=== PATIENT | female | born 1940 | race Caucasian/White ===

== ENCOUNTER 2018-03-29 09:00 | Outpatient (RCR) | payer MEDICARE, OTHER, SELFPAY ==
--- NOTE | 2018-02-14 13:40 | PT.OIE ---
Current Diagnoses Cervicalgia (02/13/18) Abnormal posture (02/13/18) Weakness (02/13/18) Past Surgical History (Last Reviewed 02/14/18 @ 13:12 by Rosario Ortiz PT) History of left hip replacement (Acute) History of bladder suspension procedure History of breast augmentation History of third molar tooth extraction History of tonsillectomy S/P total abdominal hysterectomy and bilateral salpingo-oophorectomy Status post appendectomy Status post laminectomy Provider Visit Care Team Role Provider Type Joel Laguna MD Attending Provider Physician Family Provider Primary Care Provider Specialty: Internal Medicine Address: [address] [place] [address], [facility] Email: Physical Therapy Initial Evaluation PT-OP-A Visit Information Start: 02/13/18 07:28 Freq: Status: Active Protocol: Document 02/13/18 13:00 [facility] (Rec: 02/14/18 13:22 [facility] [id number]) Out-Patient Physical Therapy Visit Information Visit Information Visit Type Initial Evaluation Visit Start Time 13:00 Visit Stop Time 13:50 Total Visit Minutes 50 Visit Number 1 Number of PUFF IRON OPERATOR Visits 0 PT-OP-B Current Condition Start: 02/13/18 07:28 Freq: Status: Active Protocol: Document 02/13/18 13:00 [facility] (Rec: 02/14/18 13:22 [facility] [id number]) Current Condition History of Current Condition Current Complaints Pain into L arm to elbow, into shoulder blad with spasms History of Current Condition Pt reports history of neck pain, scapular pain & elbow pain that has been on and off for years. 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 Pt has been able to relieve her pain before with mm relaxor 2x/day for an extended period & foam rolling the spot. She has had the pain since Oct when she was lifting a [employer] suitcase on their way home from a trip. She saw her MD 2 days ago and he encouraged her to work on her posture. The past 2 days have been better than the last few months. Pt notes the pain feels like a hammer on her funny bone. PT-OP-C Subjective Start: 02/13/18 07:28 Freq: Status: Active Protocol: Document 02/13/18 13:00 [facility] (Rec: 02/14/18 13:22 [facility] [id number]) Patient Questionnaires Quick Dash- Upper Extremity Quick Dash UE Score 22.72 Quick Dash UE Impairment 20 to 39% Impaired (Score 20- 39) OP-PT Pain Assessment Location Left Shoulder Pain Location Details L scapular area, neck & down arm to elbow Intensity 6 Scale Used Numeric (1 - 10) Description Spasm Frequency Intermittent Pain Aggravating Factors Dependent Position Other Pain Aggravating Factors any activity jazmín lifting L>R Pain Alleviating Factors Cold Medication Lying Supine Massage PT-OP-F Manual Assessment Start: 02/13/18 07:28 Freq: Status: Active Protocol: Document 02/13/18 13:00 [facility] (Rec: 02/14/18 13:28 [facility] [email or web address]) Manual Assessments Soft Tissue Assessment Soft Tissue Mobility Assessment Tigthness throughout cervical paraspinals, LS, rhomboids, UT PT-OP-J Posture/Palpation/Skin Start: 02/13/18 07:28 Freq: Status: Active Protocol: Document 02/13/18 13:00 [facility] (Rec: 02/14/18 13:28 [facility] [email or web address]) Posture Evaluation Comments Posture Comments Fwd head & shoulders PT-OP-K Range of Motion Start: 02/13/18 07:28 Freq: Status: Active Protocol: Document 02/13/18 13:00 [facility] (Rec: 02/14/18 13:28 [facility] [email or web address]) Cervical Spine Range of Motion Cervical Spine Active Degrees Testing Position Sitting Flexion 55 Extension 18 Rotation Left 28 Rotation Right 32 Lateral Flexion Left 5 Lateral Flexion Right 12 Comments pain ipsilat with SB, pain on R with L rotation & pain B with R rotation PT-OP-M Strength Start: 02/13/18 07:28 Freq: Status: Active Protocol: Document 02/13/18 13:00 [facility] (Rec: 02/14/18 13:28 [facility] [email or web address]) Shoulder Strength Shoulder Manual Muscle Testing Right Reason Not Measured Pain Left Reason Not Measured Pain PT-OP-Q Treatments Start: 02/13/18 07:28 Freq: Status: Active Protocol: Document 02/13/18 13:00 [facility] (Rec: 02/14/18 13:40 [facility] [email or web address]) Therapeutic Exercises Supine Exercises 2 Supine Exercise Name Foam roll: flex & Habd Side bilateral 1 Supine Exercise Name axial elongation Standing Exercises 2 Standing Exercise Name posture roll up w/o UE use 1 Standing Exercise Name Cervical AROM all directions Side bilateral Self-Care/Home Management Treatment Education Other Education Discussed massage as help for improving pain. PT-OP-T Assessment and Plan Start: 02/13/18 07:28 Freq: Status: Active Protocol: Document 02/13/18 13:00 [facility] (Rec: 02/14/18 13:40 [facility] [email or web address]) Physical Therapy Assessment Rehab Potential Rehabilitation Potential Excellent Evaluation Complexity Number of Personal Factors/Comorbidities 3 or More Number of Body Systems Impaired 4 or More Clinical Presentation at Evaluation Evolving Impairments Impairments Activity Tolerance Pain Posture ROM Soft Tissue Mobility Strength Goals Four Impairment UE strength Shade Hanger Goal (LTG) 5/5 strength to allow pt do normal household activities LTG Duration 04/15/18 Three Impairment pain Short Term Goal (STG) no greater than 4/10 STG Duration 03/15/18 Shelter Goal (LTG) no pain present with pt's typical activities. LTG Duration 04/15/18 Two Impairment ROM Shelter Goal (LTG) WNL to allow pt to drive & do daily tasks without pain. LTG Duration 04/15/18 One Impairment DASH Shelter Goal (LTG) Score of 4 to show ability to more functional tasks. LTG Duration by 04/15/18 Physical Therapy Plan Frequency and Duration Frequency of Treatment 2x/Week Duration of Treatment 2 months Plan of Care Start Date 02/13/18 Plan of Care End Date 04/15/18 Therapeutic Interventions Therapeutic Interventions Home Exercise Program Joint Mobilizations Manual Therapy Patient/Caregiver Education Soft Tissue Mobilization Taping Therapeutic Activities Therapeutic Exercises Modalities Cold Pack/Ice Massage Electric Stimulation Hot Packs Traction- Mechanical Ultrasound Next Visit Focus/Plan Next Note Type Treatment Note Next Visit Plan STM & ultrasound to LS/ rhomboid area, rib mobs Please Sign and Return: I have reviewed this Plan of Care and certify that the skilled therapy services above are required to meet the patient?s needs. Physician Signature Date Printed Name and Credentials Clinical Instructor Signature Printed Name and Credentials
--- NOTE | 2018-02-14 13:40 | PT.OPPOC ---
Current Diagnoses Cervicalgia (02/13/18) Abnormal posture (02/13/18) Weakness (02/13/18) Provider Visit Care Team Role Provider Type Joel Laguna MD Attending Provider Physician Family Provider Primary Care Provider Specialty: Internal Medicine Address: [address] [place] [address], [facility] Email: Plan Of Care PT-OP-T Assessment and Plan Start: 02/13/18 07:28 Freq: Status: Active Protocol: Document 02/13/18 13:00 [facility] (Rec: 02/14/18 13:40 [facility] [id number]) Physical Therapy Assessment Rehab Potential Rehabilitation Potential Excellent Evaluation Complexity Number of Personal Factors/Comorbidities 3 or More Number of Body Systems Impaired 4 or More Clinical Presentation at Evaluation Evolving Impairments Impairments Activity Tolerance Pain Posture ROM Soft Tissue Mobility Strength Goals Four Impairment UE strength Stage Electrician Helper Goal (LTG) 5/5 strength to allow pt do normal household activities LTG Duration 04/15/18 Three Impairment pain Short Term Goal (STG) no greater than 4/10 STG Duration 03/15/18 Stage Electrician Helper Goal (LTG) no pain present with pt's typical activities. LTG Duration 04/15/18 Two Impairment ROM Snf Goal (LTG) WNL to allow pt to drive & do daily tasks without pain. LTG Duration 04/15/18 One Impairment DASH Snf Goal (LTG) Score of 4 to show ability to more functional tasks. LTG Duration by 04/15/18 Physical Therapy Plan Frequency and Duration Frequency of Treatment 2x/Week Duration of Treatment 2 months Plan of Care Start Date 02/13/18 Plan of Care End Date 04/15/18 Therapeutic Interventions Therapeutic Interventions Home Exercise Program Joint Mobilizations Manual Therapy Patient/Caregiver Education Soft Tissue Mobilization Taping Therapeutic Activities Therapeutic Exercises Modalities Cold Pack/Ice Massage Electric Stimulation Hot Packs Traction- Mechanical Ultrasound Next Visit Focus/Plan Next Note Type Treatment Note Next Visit Plan STM & ultrasound to LS/ rhomboid area, rib mobs Plan of Care Dates Plan of Care Start Date 02/13/18 Plan of Care End Date 04/15/18 Please Sign and Return: I have reviewed this Plan of Care and certify that the skilled therapy services above are required to meet the patient?s needs. Physician Signature Date Printed Name and Credentials Clinical Instructor Signature Printed Name and Credentials
--- NOTE | 2018-02-19 17:24 | PT.OTN ---
Current Diagnoses Cervicalgia (02/19/18) Physical Therapy Treatment Note PT-OP-A Visit Information Start: 02/13/18 07:28 Freq: Status: Active Protocol: Document 02/19/18 13:00 [facility] (Rec: 02/19/18 17:24 [facility] [email or web address]) Out-Patient Physical Therapy Visit Information Visit Information Visit Type Treatment Note Visit Start Time 13:00 Visit Stop Time 13:45 Total Visit Minutes 45 Visit Number 2 Number of LOCKSTITCH SLEEVE SETTER Visits 0 PT-OP-B Current Condition Start: 02/13/18 07:28 Freq: Status: Active Protocol: Document 02/13/18 13:00 [facility] (Rec: 02/14/18 13:22 [facility] [id number]) Current Condition History of Current Condition Current Complaints Pain into L arm to elbow, into shoulder blad with spasms History of Current Condition Pt reports history of neck pain, scapular pain & elbow pain that has been on and off for years. 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 Pt has been able to relieve her pain before with mm relaxor 2x/day for an extended period & foam rolling the spot. She has had the pain since Oct when she was lifting a [employer] suitcase on their way home from a trip. She saw her MD 2 days ago and he encouraged her to work on her posture. The past 2 days have been better than the last few months. Pt notes the pain feels like a hammer on her funny bone. PT-OP-C Subjective Start: 02/13/18 07:28 Freq: Status: Active Protocol: Document 02/19/18 13:00 [facility] (Rec: 02/19/18 17:24 [facility] [email or web address]) OP-PT Subjective Patient Comments Patient Comments Reports she tried foam roll & tennis ball and was painful after so has not done it again . Reports cont to get pain shooting to elbow. PT-OP-F Manual Assessment Start: 02/13/18 07:28 Freq: Status: Active Protocol: Document 02/13/18 13:00 [facility] (Rec: 02/14/18 13:28 [facility] [email or web address]) Manual Assessments Soft Tissue Assessment Soft Tissue Mobility Assessment Tigthness throughout cervical paraspinals, LS, rhomboids, UT PT-OP-J Posture/Palpation/Skin Start: 02/13/18 07:28 Freq: Status: Active Protocol: Document 02/13/18 13:00 [facility] (Rec: 02/14/18 13:28 [facility] [id number]) Posture Evaluation Comments Posture Comments Fwd head & shoulders PT-OP-K Range of Motion Start: 02/13/18 07:28 Freq: Status: Active Protocol: Document 02/13/18 13:00 [facility] (Rec: 02/14/18 13:28 [facility] [email or web address]) Cervical Spine Range of Motion Cervical Spine Active Degrees Testing Position Sitting Flexion 55 Extension 18 Rotation Left 28 Rotation Right 32 Lateral Flexion Left 5 Lateral Flexion Right 12 Comments pain ipsilat with SB, pain on R with L rotation & pain B with R rotation PT-OP-M Strength Start: 02/13/18 07:28 Freq: Status: Active Protocol: Document 02/13/18 13:00 [facility] (Rec: 02/14/18 13:28 [facility] [email or web address]) Shoulder Strength Shoulder Manual Muscle Testing Right Reason Not Measured Pain Left Reason Not Measured Pain PT-OP-Q Treatments Start: 02/13/18 07:28 Freq: Status: Active Protocol: Document 02/19/18 13:00 [facility] (Rec: 02/19/18 17:24 [facility] [email or web address]) Therapeutic Exercises Standing Exercises 3 Standing Exercise Name corner pec stretch Manual Therapy Treatment Soft Tissue Mobilization 1 Body Location L UT, LS, scalenes, cervical paraspinals Mobilization Type Rolling Sustained Pressure Intensity/Depth Moderate Joint Mobilizations 2 Joint L ribs 2-5 Direction AP FM 1 Joint T1-3 Direction PA FM & transverse L FM PT-OP-T Assessment and Plan Start: 02/13/18 07:28 Freq: Status: Active Protocol: Document 02/19/18 13:00 [facility] (Rec: 02/19/18 17:24 [facility] [email or web address]) Physical Therapy Assessment Goals Four Impairment UE strength Correction Goal (LTG) 5/5 strength to allow pt do normal household activities LTG Duration 04/15/18 Three Impairment pain Short Term Goal (STG) no greater than 4/10 STG Duration 03/15/18 Egg Separator Goal (LTG) no pain present with pt's typical activities. LTG Duration 04/15/18 Two Impairment ROM Correction Goal (LTG) WNL to allow pt to drive & do daily tasks without pain. LTG Duration 04/15/18 One Impairment DASH Correction Goal (LTG) Score of 4 to show ability to more functional tasks. LTG Duration by 04/15/18 Assessment Summary Assessment Pt felt much looser after STM and joint mobilizations. Pt has significant restrictions in L>R thoracic & ribs. Improved joint play and ROM after manual. Physical Therapy Plan Frequency and Duration Frequency of Treatment 2x/Week Duration of Treatment 2 months Plan of Care Start Date 02/13/18 Plan of Care End Date 04/15/18 Next Visit Focus/Plan Next Note Type Treatment Note Next Visit Plan roll & reach, cat & camel, thread the needle, jovanna pose , sleep position
--- NOTE | 2018-02-22 15:55 | PT.OTN ---
Current Diagnoses Cervicalgia (02/22/18) Physical Therapy Treatment Note PT-OP-A Visit Information Start: 02/13/18 07:28 Freq: Status: Active Protocol: Document 02/22/18 15:20 [facility] (Rec: 02/22/18 15:55 [facility] [id number]) Out-Patient Physical Therapy Visit Information Visit Information Visit Type Treatment Note Visit Start Time 14:30 Visit Stop Time 15:20 Total Visit Minutes 48 Visit Number 3 Number of BOOKBINDING MACHINE OPERATOR Visits 0 PT-OP-B Current Condition Start: 02/13/18 07:28 Freq: Status: Active Protocol: Document 02/13/18 13:00 [facility] (Rec: 02/14/18 13:22 [facility] [email or web address]) Current Condition History of Current Condition Current Complaints Pain into L arm to elbow, into shoulder blad with spasms History of Current Condition Pt reports history of neck pain, scapular pain & elbow pain that has been on and off for years. 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 Pt has been able to relieve her pain before with mm relaxor 2x/day for an extended period & foam rolling the spot. She has had the pain since Oct when she was lifting a [employer] suitcase on their way home from a trip. She saw her MD 2 days ago and he encouraged her to work on her posture. The past 2 days have been better than the last few months. Pt notes the pain feels like a hammer on her funny bone. PT-OP-C Subjective Start: 02/13/18 07:28 Freq: Status: Active Protocol: Document 02/22/18 15:20 [facility] (Rec: 02/22/18 15:55 [facility] [id number]) OP-PT Subjective Patient Comments Patient Comments Pt reports today she is doing okay, but was very sore yesterday. She started to take her muscle relaxors again. PT-OP-F Manual Assessment Start: 02/13/18 07:28 Freq: Status: Active Protocol: Document 02/13/18 13:00 [facility] (Rec: 02/14/18 13:28 [facility] [id number]) Manual Assessments Soft Tissue Assessment Soft Tissue Mobility Assessment Tigthness throughout cervical paraspinals, LS, rhomboids, UT PT-OP-J Posture/Palpation/Skin Start: 02/13/18 07:28 Freq: Status: Active Protocol: Document 02/13/18 13:00 [facility] (Rec: 02/14/18 13:28 [facility] [email or web address]) Posture Evaluation Comments Posture Comments Fwd head & shoulders PT-OP-K Range of Motion Start: 02/13/18 07:28 Freq: Status: Active Protocol: Document 02/13/18 13:00 [facility] (Rec: 02/14/18 13:28 [facility] [id number]) Cervical Spine Range of Motion Cervical Spine Active Degrees Testing Position Sitting Flexion 55 Extension 18 Rotation Left 28 Rotation Right 32 Lateral Flexion Left 5 Lateral Flexion Right 12 Comments pain ipsilat with SB, pain on R with L rotation & pain B with R rotation PT-OP-M Strength Start: 02/13/18 07:28 Freq: Status: Active Protocol: Document 02/13/18 13:00 [facility] (Rec: 02/14/18 13:28 [facility] [id number]) Shoulder Strength Shoulder Manual Muscle Testing Right Reason Not Measured Pain Left Reason Not Measured Pain PT-OP-Q Treatments Start: 02/13/18 07:28 Freq: Status: Active Protocol: Document 02/22/18 15:20 [facility] (Rec: 02/22/18 15:55 [facility] [email or web address]) Therapeutic Exercises Other Exercises 4 Other Exercise Name roll & reach Reps/Minutes 12 3 Other Exercise Name thread the needle Reps/Minutes 2x 30 sec 2 Other Exercise Name cat/camel Reps/Minutes 15 1 Other Exercise Name Child's pose & to side Therapeutic Activity Therapeutic Activity 1 Name sleep position Comments s/l Manual Therapy Treatment Soft Tissue Mobilization 2 Body Location rhomboids Mobilization Type Rolling Intensity/Depth Moderate 1 Body Location L UT, LS, scalenes, cervical paraspinals Mobilization Type Rolling Sustained Pressure Intensity/Depth Moderate Joint Mobilizations 3 Joint C6 Direction L UPA Grade II 2 Joint L ribs 2-5 Direction AP FM PT-OP-T Assessment and Plan Start: 02/13/18 07:28 Freq: Status: Active Protocol: Document 02/22/18 15:20 [facility] (Rec: 02/22/18 15:55 [facility] [email or web address]) Physical Therapy Assessment Goals Four Impairment UE strength Longterm Goal (LTG) 5/5 strength to allow pt do normal household activities LTG Duration 04/15/18 Three Impairment pain Short Term Goal (STG) no greater than 4/10 STG Duration 03/15/18 Longterm Goal (LTG) no pain present with pt's typical activities. LTG Duration 04/15/18 Two Impairment ROM Marketing Automation Manager Goal (LTG) WNL to allow pt to drive & do daily tasks without pain. LTG Duration 04/15/18 One Impairment DASH Marketing Automation Manager Goal (LTG) Score of 4 to show ability to more functional tasks. LTG Duration by 04/15/18 Assessment Summary Assessment Pt hd improved soft tissue mobility of UT & LS. Able to tolerate all thoracic mobility stretches without c/o inc pain. Physical Therapy Plan Frequency and Duration Frequency of Treatment 2x/Week Duration of Treatment 2 months Plan of Care Start Date 02/13/18 Plan of Care End Date 04/15/18 Next Visit Focus/Plan Next Note Type Treatment Note Next Visit Plan Cont to progress cervical ROM & mobility
--- NOTE | 2018-03-05 17:48 | PT.OTN ---
Current Diagnoses Cervicalgia (03/05/18) Physical Therapy Treatment Note PT-OP-A Visit Information Start: 02/13/18 07:28 Freq: Status: Active Protocol: Document 03/05/18 17:34 [facility] (Rec: 03/05/18 17:48 [facility] [id number]) Out-Patient Physical Therapy Visit Information Visit Information Visit Type Treatment Note Visit Start Time 09:00 Visit Stop Time 09:40 Total Visit Minutes 40 Visit Number 4 Number of SENIOR PHARMACY TECHNICIAN Visits 0 PT-OP-B Current Condition Start: 02/13/18 07:28 Freq: Status: Active Protocol: Document 02/13/18 13:00 [facility] (Rec: 02/14/18 13:22 [facility] [id number]) Current Condition History of Current Condition Current Complaints Pain into L arm to elbow, into shoulder blad with spasms History of Current Condition Pt reports history of neck pain, scapular pain & elbow pain that has been on and off for years. 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 Pt has been able to relieve her pain before with mm relaxor 2x/day for an extended period & foam rolling the spot. She has had the pain since Oct when she was lifting a [employer] suitcase on their way home from a trip. She saw her MD 2 days ago and he encouraged her to work on her posture. The past 2 days have been better than the last few months. Pt notes the pain feels like a hammer on her funny bone. PT-OP-C Subjective Start: 02/13/18 07:28 Freq: Status: Active Protocol: Document 03/05/18 17:34 [facility] (Rec: 03/05/18 17:48 [facility] [id number]) OP-PT Subjective Patient Comments Patient Comments Pt report she has only had to take tylenol. Notes she has had less sharp shooting pain. PT-OP-F Manual Assessment Start: 02/13/18 07:28 Freq: Status: Active Protocol: Document 02/13/18 13:00 [facility] (Rec: 02/14/18 13:28 [facility] [id number]) Manual Assessments Soft Tissue Assessment Soft Tissue Mobility Assessment Tigthness throughout cervical paraspinals, LS, rhomboids, UT PT-OP-J Posture/Palpation/Skin Start: 02/13/18 07:28 Freq: Status: Active Protocol: Document 02/13/18 13:00 [facility] (Rec: 02/14/18 13:28 [facility] [id number]) Posture Evaluation Comments Posture Comments Fwd head & shoulders PT-OP-K Range of Motion Start: 02/13/18 07:28 Freq: Status: Active Protocol: Document 02/13/18 13:00 [facility] (Rec: 02/14/18 13:28 [facility] [id number]) Cervical Spine Range of Motion Cervical Spine Active Degrees Testing Position Sitting Flexion 55 Extension 18 Rotation Left 28 Rotation Right 32 Lateral Flexion Left 5 Lateral Flexion Right 12 Comments pain ipsilat with SB, pain on R with L rotation & pain B with R rotation PT-OP-M Strength Start: 02/13/18 07:28 Freq: Status: Active Protocol: Document 02/13/18 13:00 [facility] (Rec: 02/14/18 13:28 [facility] [id number]) Shoulder Strength Shoulder Manual Muscle Testing Right Reason Not Measured Pain Left Reason Not Measured Pain PT-OP-Q Treatments Start: 02/13/18 07:28 Freq: Status: Active Protocol: Document 03/05/18 17:34 [facility] (Rec: 03/05/18 17:48 [facility] [id number]) Manual Therapy Treatment Soft Tissue Mobilization 3 Body Location down paraspinals w/flex 2 Body Location rhomboids Mobilization Type Rolling Intensity/Depth Moderate 1 Body Location L UT, LS, scalenes, cervical paraspinals Mobilization Type Rolling Sustained Pressure Intensity/Depth Moderate Comments FM with movement Joint Mobilizations 4 Joint 1st rib Direction s/l Comments FM PT-OP-T Assessment and Plan Start: 02/13/18 07:28 Freq: Status: Active Protocol: Document 03/05/18 17:34 [facility] (Rec: 03/05/18 17:48 [facility] [id number]) Physical Therapy Assessment Goals Four Impairment UE strength Custodial Goal (LTG) 5/5 strength to allow pt do normal household activities LTG Duration 04/15/18 Three Impairment pain Short Term Goal (STG) no greater than 4/10 STG Duration 03/15/18 Custodial Goal (LTG) no pain present with pt's typical activities. LTG Duration 04/15/18 Two Impairment ROM Forge Heater Goal (LTG) WNL to allow pt to drive & do daily tasks without pain. LTG Duration 04/15/18 One Impairment DASH Forge Heater Goal (LTG) Score of 4 to show ability to more functional tasks. LTG Duration by 04/15/18 Assessment Summary Assessment Pt reported significantly dec pain with treatment. Improved thoracic rot & dec pain. Physical Therapy Plan Frequency and Duration Frequency of Treatment 2x/Week Duration of Treatment 2 months Plan of Care Start Date 02/13/18 Plan of Care End Date 04/15/18 Next Visit Focus/Plan Next Note Type Treatment Note Next Visit Plan Cont to progress cervical ROM & mobility
--- NOTE | 2018-03-08 10:35 | PT.OTN ---
Current Diagnoses Cervicalgia (03/08/18) Physical Therapy Treatment Note PT-OP-A Visit Information Start: 02/13/18 07:28 Freq: Status: Active Protocol: Document 03/08/18 09:42 [facility] (Rec: 03/08/18 10:34 [facility] [id number]) Out-Patient Physical Therapy Visit Information Visit Information Visit Type Treatment Note Visit Note 5 visits this yr Visit Start Time 09:45 Visit Stop Time 10:30 Total Visit Minutes 45 Visit Number 5/10 Number of GROUP LEADER SEMICONDUCTOR PROCESSING Visits 0 PT-OP-B Current Condition Start: 02/13/18 07:28 Freq: Status: Active Protocol: Document 02/13/18 13:00 [facility] (Rec: 02/14/18 13:22 [facility] [id number]) Current Condition History of Current Condition Current Complaints Pain into L arm to elbow, into shoulder blad with spasms History of Current Condition Pt reports history of neck pain, scapular pain & elbow pain that has been on and off for years. 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 Pt has been able to relieve her pain before with mm relaxor 2x/day for an extended period & foam rolling the spot. She has had the pain since Oct when she was lifting a [employer] suitcase on their way home from a trip. She saw her MD 2 days ago and he encouraged her to work on her posture. The past 2 days have been better than the last few months. Pt notes the pain feels like a hammer on her funny bone. PT-OP-C Subjective Start: 02/13/18 07:28 Freq: Status: Active Protocol: Document 03/08/18 09:42 [facility] (Rec: 03/08/18 10:34 [facility] [id number]) OP-PT Subjective Patient Comments Patient Comments It was a bad day yesterday. Today is better, unsure why PT-OP-F Manual Assessment Start: 02/13/18 07:28 Freq: Status: Active Protocol: Document 02/13/18 13:00 [facility] (Rec: 02/14/18 13:28 [facility] [email or web address]) Manual Assessments Soft Tissue Assessment Soft Tissue Mobility Assessment Tigthness throughout cervical paraspinals, LS, rhomboids, UT PT-OP-J Posture/Palpation/Skin Start: 02/13/18 07:28 Freq: Status: Active Protocol: Document 02/13/18 13:00 [facility] (Rec: 02/14/18 13:28 [facility] [email or web address]) Posture Evaluation Comments Posture Comments Fwd head & shoulders PT-OP-K Range of Motion Start: 02/13/18 07:28 Freq: Status: Active Protocol: Document 02/13/18 13:00 [facility] (Rec: 02/14/18 13:28 [facility] [id number]) Cervical Spine Range of Motion Cervical Spine Active Degrees Testing Position Sitting Flexion 55 Extension 18 Rotation Left 28 Rotation Right 32 Lateral Flexion Left 5 Lateral Flexion Right 12 Comments pain ipsilat with SB, pain on R with L rotation & pain B with R rotation PT-OP-M Strength Start: 02/13/18 07:28 Freq: Status: Active Protocol: Document 02/13/18 13:00 [facility] (Rec: 02/14/18 13:28 [facility] [id number]) Shoulder Strength Shoulder Manual Muscle Testing Right Reason Not Measured Pain Left Reason Not Measured Pain PT-OP-Q Treatments Start: 02/13/18 07:28 Freq: Status: Active Protocol: Document 03/08/18 09:42 [facility] (Rec: 03/08/18 10:34 [facility] [id number]) Therapeutic Exercises Sidelying Exercises 1 Sidelying Exercise Name self 1st rib mob Sitting Exercises 1 Sitting Exercise Name LS stretch Manual Therapy Treatment Soft Tissue Mobilization 3 Body Location down paraspinals w/flex 2 Body Location rhomboids Mobilization Type Rolling Intensity/Depth Moderate Comments FM with rotation 1 Body Location L UT, LS, scalenes, cervical paraspinals Mobilization Type Rolling Sustained Pressure Intensity/Depth Moderate Comments FM with movement Joint Mobilizations 4 Joint 1st rib Direction s/l Comments FM 1 Joint T1-3 Direction PA FM & transverse L FM PT-OP-R Modalities Start: 02/13/18 07:28 Freq: Status: Active Protocol: Document 03/08/18 09:42 [facility] (Rec: 03/08/18 10:34 [facility] [id number]) Ultrasound Therapy Treatment Left Shoulder Treatment Duration (minutes) 8 Patient Position Sitting Coupling Medium Ultrasound Gel Frequency Setting (mHz) 1 Duty Cycle 100% Intensity Setting (w/cm2) 1.2 Comments scap region PT-OP-T Assessment and Plan Start: 02/13/18 07:28 Freq: Status: Active Protocol: Document 03/08/18 09:42 [facility] (Rec: 03/08/18 10:34 [facility] [id number]) Physical Therapy Assessment Goals Four Impairment UE strength Assisted Goal (LTG) 5/5 strength to allow pt do normal household activities LTG Duration 04/15/18 Three Impairment pain Short Term Goal (STG) no greater than 4/10 STG Duration 03/15/18 Assisted Goal (LTG) no pain present with pt's typical activities. LTG Duration 04/15/18 Two Impairment ROM Assisted Goal (LTG) WNL to allow pt to drive & do daily tasks without pain. LTG Duration 04/15/18 One Impairment DASH Assisted Goal (LTG) Score of 4 to show ability to more functional tasks. LTG Duration by 04/15/18 Assessment Summary Assessment Pt had improved rotation after mobilizations & soft tissue work. Physical Therapy Plan Frequency and Duration Frequency of Treatment 2x/Week Duration of Treatment 2 months Plan of Care Start Date 02/13/18 Plan of Care End Date 04/15/18 Next Visit Focus/Plan Next Note Type Treatment Note Next Visit Plan Cont to progress cervical ROM & mobility & scapular stabilization
--- NOTE | 2018-03-12 16:51 | PT.OTN ---
Current Diagnoses Cervicalgia (03/12/18) Physical Therapy Treatment Note PT-OP-A Visit Information Start: 02/13/18 07:28 Freq: Status: Active Protocol: Document 03/12/18 16:46 [facility] (Rec: 03/12/18 16:51 [facility] [id number]) Out-Patient Physical Therapy Visit Information Visit Information Visit Type Treatment Note Visit Note 6 visits this yr Visit Start Time 11:15 Visit Stop Time 12:00 Total Visit Minutes 45 Visit Number 6/10 Number of KENNEL WORKER Visits 0 PT-OP-B Current Condition Start: 02/13/18 07:28 Freq: Status: Active Protocol: Document 02/13/18 13:00 [facility] (Rec: 02/14/18 13:22 [facility] [id number]) Current Condition History of Current Condition Current Complaints Pain into L arm to elbow, into shoulder blad with spasms History of Current Condition Pt reports history of neck pain, scapular pain & elbow pain that has been on and off for years. 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 Pt has been able to relieve her pain before with mm relaxor 2x/day for an extended period & foam rolling the spot. She has had the pain since Oct when she was lifting a [employer] suitcase on their way home from a trip. She saw her MD 2 days ago and he encouraged her to work on her posture. The past 2 days have been better than the last few months. Pt notes the pain feels like a hammer on her funny bone. PT-OP-C Subjective Start: 02/13/18 07:28 Freq: Status: Active Protocol: Document 03/12/18 16:46 [facility] (Rec: 03/12/18 16:51 [facility] [id number]) OP-PT Subjective Patient Comments Patient Comments Pt reports she has been sleeping in a small bed with her and 4 dogs d/t babysitting her dgt's dogs and had inc pain the past 2 days. 4 more days of babysitting dogs. PT-OP-F Manual Assessment Start: 02/13/18 07:28 Freq: Status: Active Protocol: Document 02/13/18 13:00 [facility] (Rec: 02/14/18 13:28 [facility] [id number]) Manual Assessments Soft Tissue Assessment Soft Tissue Mobility Assessment Tigthness throughout cervical paraspinals, LS, rhomboids, UT PT-OP-J Posture/Palpation/Skin Start: 02/13/18 07:28 Freq: Status: Active Protocol: Document 02/13/18 13:00 [facility] (Rec: 02/14/18 13:28 [facility] [id number]) Posture Evaluation Comments Posture Comments Fwd head & shoulders PT-OP-K Range of Motion Start: 02/13/18 07:28 Freq: Status: Active Protocol: Document 02/13/18 13:00 [facility] (Rec: 02/14/18 13:28 [facility] [id number]) Cervical Spine Range of Motion Cervical Spine Active Degrees Testing Position Sitting Flexion 55 Extension 18 Rotation Left 28 Rotation Right 32 Lateral Flexion Left 5 Lateral Flexion Right 12 Comments pain ipsilat with SB, pain on R with L rotation & pain B with R rotation PT-OP-M Strength Start: 02/13/18 07:28 Freq: Status: Active Protocol: Document 02/13/18 13:00 [facility] (Rec: 02/14/18 13:28 [facility] [id number]) Shoulder Strength Shoulder Manual Muscle Testing Right Reason Not Measured Pain Left Reason Not Measured Pain PT-OP-Q Treatments Start: 02/13/18 07:28 Freq: Status: Active Protocol: Document 03/12/18 16:46 [facility] (Rec: 03/12/18 16:51 [facility] [id number]) Therapeutic Exercises Supine Exercises 1 Supine Exercise Name axial elongation Comments with hand support Standing Exercises 5 Standing Exercise Name rows Equipment Used Lvl 1 Reps/Minutes 20 Comments focus on scapular retraction 4 Standing Exercise Name ER Equipment Used lvl 1 Reps/Minutes 20 Comments focus on scap retract Other Exercises 5 Other Exercise Name cane self release Manual Therapy Treatment Soft Tissue Mobilization 2 Body Location rhomboids Mobilization Type Rolling Intensity/Depth Moderate Comments FM with rotation 1 Body Location L UT, LS, scalenes, cervical paraspinals Mobilization Type Myofascial Release Rolling Sustained Pressure Intensity/Depth Moderate Comments FM with movement Joint Mobilizations 2 Joint L ribs 2-5 Direction AP FM PT-OP-R Modalities Start: 02/13/18 07:28 Freq: Status: Active Protocol: Document 03/08/18 09:42 [facility] (Rec: 03/08/18 10:34 [facility] [id number]) Ultrasound Therapy Treatment Left Shoulder Treatment Duration (minutes) 8 Patient Position Sitting Coupling Medium Ultrasound Gel Frequency Setting (mHz) 1 Duty Cycle 100% Intensity Setting (w/cm2) 1.2 Comments scap region PT-OP-T Assessment and Plan Start: 02/13/18 07:28 Freq: Status: Active Protocol: Document 03/12/18 16:46 [facility] (Rec: 03/12/18 16:51 [facility] [id number]) Physical Therapy Assessment Goals Four Impairment UE strength Pet Food Deboner Goal (LTG) 5/5 strength to allow pt do normal household activities LTG Duration 04/15/18 Three Impairment pain Short Term Goal (STG) no greater than 4/10 STG Duration 03/15/18 Pet Food Deboner Goal (LTG) no pain present with pt's typical activities. LTG Duration 04/15/18 Two Impairment ROM Custodial Goal (LTG) WNL to allow pt to drive & do daily tasks without pain. LTG Duration 04/15/18 One Impairment DASH Pet Food Deboner Goal (LTG) Score of 4 to show ability to more functional tasks. LTG Duration by 04/15/18 Assessment Summary Assessment Pt had some pain after exercises, but has been having intermittent pain today. Pt had dec in symptoms after session. Reports feeling looser. Physical Therapy Plan Frequency and Duration Frequency of Treatment 2x/Week Duration of Treatment 2 months Plan of Care Start Date 02/13/18 Plan of Care End Date 04/15/18 Next Visit Focus/Plan Next Note Type Treatment Note Next Visit Plan Cont to progress cervical ROM & stability & scapular stabilization
--- NOTE | 2018-03-20 16:59 | PT.OTN ---
Current Diagnoses Cervicalgia (03/20/18) Physical Therapy Treatment Note PT-OP-A Visit Information Start: 02/13/18 07:28 Freq: Status: Active Protocol: Document 03/20/18 16:54 [facility] (Rec: 03/20/18 16:59 [facility] [id number]) Out-Patient Physical Therapy Visit Information Visit Information Visit Type Treatment Note Visit Note 7 visits this yr Visit Start Time 09:00 Visit Stop Time 09:45 Total Visit Minutes 45 Visit Number 7/10 Number of ANALYSIS INTERNSHIP Visits 0 PT-OP-B Current Condition Start: 02/13/18 07:28 Freq: Status: Active Protocol: Document 02/13/18 13:00 [facility] (Rec: 02/14/18 13:22 [facility] [id number]) Current Condition History of Current Condition Current Complaints Pain into L arm to elbow, into shoulder blad with spasms History of Current Condition Pt reports history of neck pain, scapular pain & elbow pain that has been on and off for years. 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 Pt has been able to relieve her pain before with mm relaxor 2x/day for an extended period & foam rolling the spot. She has had the pain since Oct when she was lifting a [employer] suitcase on their way home from a trip. She saw her MD 2 days ago and he encouraged her to work on her posture. The past 2 days have been better than the last few months. Pt notes the pain feels like a hammer on her funny bone. PT-OP-C Subjective Start: 02/13/18 07:28 Freq: Status: Active Protocol: Document 03/20/18 16:54 [facility] (Rec: 03/20/18 16:59 [facility] [id number]) OP-PT Subjective Patient Comments Patient Comments Reports she has not had pain since the 12th PT-OP-F Manual Assessment Start: 02/13/18 07:28 Freq: Status: Active Protocol: Document 02/13/18 13:00 [facility] (Rec: 02/14/18 13:28 [facility] [id number]) Manual Assessments Soft Tissue Assessment Soft Tissue Mobility Assessment Tigthness throughout cervical paraspinals, LS, rhomboids, UT PT-OP-J Posture/Palpation/Skin Start: 02/13/18 07:28 Freq: Status: Active Protocol: Document 02/13/18 13:00 [facility] (Rec: 02/14/18 13:28 [facility] [id number]) Posture Evaluation Comments Posture Comments Fwd head & shoulders PT-OP-K Range of Motion Start: 02/13/18 07:28 Freq: Status: Active Protocol: Document 02/13/18 13:00 [facility] (Rec: 02/14/18 13:28 [facility] [id number]) Cervical Spine Range of Motion Cervical Spine Active Degrees Testing Position Sitting Flexion 55 Extension 18 Rotation Left 28 Rotation Right 32 Lateral Flexion Left 5 Lateral Flexion Right 12 Comments pain ipsilat with SB, pain on R with L rotation & pain B with R rotation PT-OP-M Strength Start: 02/13/18 07:28 Freq: Status: Active Protocol: Document 02/13/18 13:00 [facility] (Rec: 02/14/18 13:28 [facility] [id number]) Shoulder Strength Shoulder Manual Muscle Testing Right Reason Not Measured Pain Left Reason Not Measured Pain PT-OP-Q Treatments Start: 02/13/18 07:28 Freq: Status: Active Protocol: Document 03/20/18 16:54 [facility] (Rec: 03/20/18 16:59 [facility] [id number]) Therapeutic Exercises Supine Exercises 1 Supine Exercise Name axial elongation Sidelying Exercises 1 Sidelying Exercise Name self 1st rib mob Standing Exercises 6 Standing Exercise Name wall posture with 90/90 ER 5 Standing Exercise Name rows Equipment Used Lvl 2 Reps/Minutes 20 Comments focus on scapular retraction 4 Standing Exercise Name ER Equipment Used lvl 2 Reps/Minutes 20 Comments focus on scap retract Manual Therapy Treatment Soft Tissue Mobilization 1 Body Location L UT, LS, scalenes, cervical paraspinals Mobilization Type Myofascial Release Rolling Sustained Pressure Intensity/Depth Moderate Comments FM with movement (B) Joint Mobilizations 4 Joint 1st rib Direction s/l Comments FM PT-OP-R Modalities Start: 02/13/18 07:28 Freq: Status: Active Protocol: Document 03/08/18 09:42 [facility] (Rec: 03/08/18 10:34 [facility] [id number]) Ultrasound Therapy Treatment Left Shoulder Treatment Duration (minutes) 8 Patient Position Sitting Coupling Medium Ultrasound Gel Frequency Setting (mHz) 1 Duty Cycle 100% Intensity Setting (w/cm2) 1.2 Comments scap region PT-OP-T Assessment and Plan Start: 02/13/18 07:28 Freq: Status: Active Protocol: Document 03/20/18 16:54 [facility] (Rec: 03/20/18 16:59 [facility] [id number]) Physical Therapy Assessment Goals Four Impairment UE strength Residential Goal (LTG) 5/5 strength to allow pt do normal household activities LTG Duration 04/15/18 Three Impairment pain Short Term Goal (STG) no greater than 4/10 STG Duration achieved [employer] Technician Goal (LTG) no pain present with pt's typical activities. LTG Duration 04/15/18 Two Impairment ROM [employer] Technician Goal (LTG) WNL to allow pt to drive & do daily tasks without pain. LTG Duration 04/15/18 One Impairment DASH Residential Goal (LTG) Score of 4 to show ability to more functional tasks. LTG Duration by 04/15/18 Assessment Summary Assessment Pt is improving with strength & tolerance to exercise today. Improved soft tissue tension in LS & UT Physical Therapy Plan Frequency and Duration Frequency of Treatment 2x/Week Duration of Treatment 2 months Plan of Care Start Date 02/13/18 Plan of Care End Date 04/15/18 Next Visit Focus/Plan Next Note Type Treatment Note Next Visit Plan Cont to progress cervical ROM & stability & scapular stabilization
--- NOTE | 2018-03-29 09:51 | PT.OTN ---
Current Diagnoses Cervicalgia (03/29/18) Physical Therapy Treatment Note PT-OP-A Visit Information Start: 02/13/18 07:28 Freq: Status: Active Protocol: Document 03/29/18 09:05 [facility] (Rec: 03/29/18 09:51 [facility] [id number]) Out-Patient Physical Therapy Visit Information Visit Information Visit Type Treatment Note Visit Note 8 visits this yr Visit Start Time 09:00 Visit Stop Time 09:45 Total Visit Minutes 45 Visit Number 8/10 Number of MOTOR VEHICLE LIGHT ASSEMBLER Visits 0 PT-OP-B Current Condition Start: 02/13/18 07:28 Freq: Status: Active Protocol: Document 02/13/18 13:00 [facility] (Rec: 02/14/18 13:22 [facility] [id number]) Current Condition History of Current Condition Current Complaints Pain into L arm to elbow, into shoulder blad with spasms History of Current Condition Pt reports history of neck pain, scapular pain & elbow pain that has been on and off for years. 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 Pt has been able to relieve her pain before with mm relaxor 2x/day for an extended period & foam rolling the spot. She has had the pain since Oct when she was lifting a [employer] suitcase on their way home from a trip. She saw her MD 2 days ago and he encouraged her to work on her posture. The past 2 days have been better than the last few months. Pt notes the pain feels like a hammer on her funny bone. PT-OP-C Subjective Start: 02/13/18 07:28 Freq: Status: Active Protocol: Document 03/29/18 09:05 [facility] (Rec: 03/29/18 09:51 [facility] [id number]) OP-PT Subjective Patient Comments Patient Comments Reports more pain along R side neck today PT-OP-F Manual Assessment Start: 02/13/18 07:28 Freq: Status: Active Protocol: Document 02/13/18 13:00 [facility] (Rec: 02/14/18 13:28 [facility] [id number]) Manual Assessments Soft Tissue Assessment Soft Tissue Mobility Assessment Tigthness throughout cervical paraspinals, LS, rhomboids, UT PT-OP-J Posture/Palpation/Skin Start: 02/13/18 07:28 Freq: Status: Active Protocol: Document 02/13/18 13:00 [facility] (Rec: 02/14/18 13:28 [facility] [id number]) Posture Evaluation Comments Posture Comments Fwd head & shoulders PT-OP-K Range of Motion Start: 02/13/18 07:28 Freq: Status: Active Protocol: Document 02/13/18 13:00 [facility] (Rec: 02/14/18 13:28 [facility] [id number]) Cervical Spine Range of Motion Cervical Spine Active Degrees Testing Position Sitting Flexion 55 Extension 18 Rotation Left 28 Rotation Right 32 Lateral Flexion Left 5 Lateral Flexion Right 12 Comments pain ipsilat with SB, pain on R with L rotation & pain B with R rotation PT-OP-M Strength Start: 02/13/18 07:28 Freq: Status: Active Protocol: Document 02/13/18 13:00 [facility] (Rec: 02/14/18 13:28 [facility] [id number]) Shoulder Strength Shoulder Manual Muscle Testing Right Reason Not Measured Pain Left Reason Not Measured Pain PT-OP-Q Treatments Start: 02/13/18 07:28 Freq: Status: Active Protocol: Document 03/29/18 09:05 [facility] (Rec: 03/29/18 09:51 [facility] [id number]) Manual Therapy Treatment Soft Tissue Mobilization 1 Body Location L UT, LS, scalenes, cervical paraspinals Mobilization Type Myofascial Release Rolling Sustained Pressure Intensity/Depth Moderate Comments FM with movement (B) Joint Mobilizations 4 Joint 1st rib Direction s/l Comments FM PT-OP-R Modalities Start: 02/13/18 07:28 Freq: Status: Active Protocol: Document 03/08/18 09:42 [facility] (Rec: 03/08/18 10:34 [facility] [id number]) Ultrasound Therapy Treatment Left Shoulder Treatment Duration (minutes) 8 Patient Position Sitting Coupling Medium Ultrasound Gel Frequency Setting (mHz) 1 Duty Cycle 100% Intensity Setting (w/cm2) 1.2 Comments scap region PT-OP-T Assessment and Plan Start: 02/13/18 07:28 Freq: Status: Active Protocol: Document 03/29/18 09:05 [facility] (Rec: 03/29/18 09:51 [facility] [id number]) Physical Therapy Assessment Goals Four Impairment UE strength Copy Center Specialist Goal (LTG) 5/5 strength to allow pt do normal household activities LTG Duration achieved Three Impairment pain Short Term Goal (STG) no greater than 4/10 STG Duration achieved Longterm Goal (LTG) no pain present with pt's typical activities. LTG Duration 05/30/18-improved pain on R neck Two Impairment ROM Longterm Goal (LTG) WNL to allow pt to drive & do daily tasks without pain. LTG Duration 05/30/18-improving One Impairment DASH Copy Center Specialist Goal (LTG) Score of 4 to show ability to more functional tasks. LTG Duration 05/30/18 -improving Progress Towards Goals Progress Comments 5/5 UE strength today; flex 60 ; 15 deg ext, SB B 15 deg, rot R 40 deg, L 50 Assessment Summary Assessment Cont tight soft tissues that improved with soft tissue work . Physical Therapy Plan Frequency and Duration Frequency of Treatment 1x/Week Duration of Treatment 2 months Plan of Care Start Date 03/29/18 Plan of Care End Date 05/30/18 Therapeutic Interventions Therapeutic Interventions Home Exercise Program Joint Mobilizations Manual Therapy Patient/Caregiver Education Soft Tissue Mobilization Taping Therapeutic Activities Therapeutic Exercises Modalities Cold Pack/Ice Massage Electric Stimulation Hot Packs Traction- Mechanical Ultrasound Next Visit Focus/Plan Next Note Type Treatment Note Next Visit Plan Cont to progress cervical ROM & stability & scapular stabilization
--- NOTE | 2018-03-29 09:52 | PT.OPPOC ---
Current Diagnoses Cervicalgia (03/29/18) Provider Visit Care Team Role Provider Type Joel Laguna MD Attending Provider Physician Family Provider Primary Care Provider Specialty: Internal Medicine Address: [address] [place] [address], [id number] Email: Plan Of Care PT-OP-T Assessment and Plan Start: 02/13/18 07:28 Freq: Status: Active Protocol: Document 03/29/18 09:05 [facility] (Rec: 03/29/18 09:51 [facility] [id number]) Physical Therapy Assessment Goals Four Impairment UE strength Manager Clinic Goal (LTG) 5/5 strength to allow pt do normal household activities LTG Duration achieved Three Impairment pain Short Term Goal (STG) no greater than 4/10 STG Duration achieved Manager Clinic Goal (LTG) no pain present with pt's typical activities. LTG Duration 05/30/18-improved pain on R neck Two Impairment ROM Fpc Goal (LTG) WNL to allow pt to drive & do daily tasks without pain. LTG Duration 05/30/18-improving One Impairment DASH Manager Clinic Goal (LTG) Score of 4 to show ability to more functional tasks. LTG Duration 05/30/18 -improving Progress Towards Goals Progress Comments 5/5 UE strength today; flex 60 ; 15 deg ext, SB B 15 deg, rot R 40 deg, L 50 Assessment Summary Assessment Cont tight soft tissues that improved with soft tissue work . Physical Therapy Plan Frequency and Duration Frequency of Treatment 1x/Week Duration of Treatment 2 months Plan of Care Start Date 03/29/18 Plan of Care End Date 05/30/18 Therapeutic Interventions Therapeutic Interventions Home Exercise Program Joint Mobilizations Manual Therapy Patient/Caregiver Education Soft Tissue Mobilization Taping Therapeutic Activities Therapeutic Exercises Modalities Cold Pack/Ice Massage Electric Stimulation Hot Packs Traction- Mechanical Ultrasound Next Visit Focus/Plan Next Note Type Treatment Note Next Visit Plan Cont to progress cervical ROM & stability & scapular stabilization Plan of Care Dates Plan of Care Start Date 03/29/18 Plan of Care End Date 05/30/18 Please Sign and Return: I have reviewed this Plan of Care and certify that the skilled therapy services above are required to meet the patient?s needs. Physician Signature Date Printed Name and Credentials Clinical Instructor Signature Printed Name and Credentials
--- NOTE | 2018-05-27 07:46 | PT.OPDS ---
Current Diagnoses Cervicalgia (03/29/18) Provider Visit Care Team Role Provider Type Joel Laguna MD Attending Provider Physician Family Provider Primary Care Provider Specialty: Internal Medicine Address: [address] [place] [address], [facility] Email: Visit Number Visit Number 04/12 Discharge Summary PT-OP-B Current Condition Start: 02/13/18 07:28 Freq: Status: Active Protocol: Document 02/13/18 13:00 [facility] (Rec: 02/14/18 13:22 [facility] [id number]) Current Condition History of Current Condition Current Complaints Pain into L arm to elbow, into shoulder blad with spasms History of Current Condition Pt reports history of neck pain, scapular pain & elbow pain that has been on and off for years. 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 Pt has been able to relieve her pain before with mm relaxor 2x/day for an extended period & foam rolling the spot. She has had the pain since Oct when she was lifting a Ember suitcase on their way home from a trip. She saw her MD 2 days ago and he encouraged her to work on her posture. The past 2 days have been better than the last few months. Pt notes the pain feels like a hammer on her funny bone. PT-OP-C Subjective Start: 02/13/18 07:28 Freq: Status: Active Protocol: Document 03/29/18 09:05 [facility] (Rec: 03/29/18 09:51 [facility] [id number]) OP-PT Subjective Patient Comments Patient Comments Reports more pain along R side neck today PT-OP-F Manual Assessment Start: 02/13/18 07:28 Freq: Status: Active Protocol: Document 02/13/18 13:00 [facility] (Rec: 02/14/18 13:28 [facility] [id number]) Manual Assessments Soft Tissue Assessment Soft Tissue Mobility Assessment Tigthness throughout cervical paraspinals, LS, rhomboids, UT PT-OP-J Posture/Palpation/Skin Start: 02/13/18 07:28 Freq: Status: Active Protocol: Document 02/13/18 13:00 [facility] (Rec: 02/14/18 13:28 [facility] [id number]) Posture Evaluation Comments Posture Comments Fwd head & shoulders PT-OP-K Range of Motion Start: 02/13/18 07:28 Freq: Status: Active Protocol: Document 02/13/18 13:00 [facility] (Rec: 02/14/18 13:28 [facility] [id number]) Cervical Spine Range of Motion Cervical Spine Active Degrees Testing Position Sitting Flexion 55 Extension 18 Rotation Left 28 Rotation Right 32 Lateral Flexion Left 5 Lateral Flexion Right 12 Comments pain ipsilat with SB, pain on R with L rotation & pain B with R rotation PT-OP-M Strength Start: 02/13/18 07:28 Freq: Status: Active Protocol: Document 02/13/18 13:00 [facility] (Rec: 02/14/18 13:28 [facility] [id number]) Shoulder Strength Shoulder Manual Muscle Testing Right Reason Not Measured Pain Left Reason Not Measured Pain PT-OP-T Assessment and Plan Start: 02/13/18 07:28 Freq: Status: Active Protocol: Document 05/27/18 07:45 [facility] (Rec: 05/27/18 07:46 [facility] [id number]) Physical Therapy Plan Discharge Physical Therapy Discharge Reasons Patient Request Discharge Comments Pt reports she is doing well and asked for d/c.
== END 2018-08-02 09:51 ==
LOC: PHYS 09:00
PROVIDERS: Family Provider Internal Medicine; PCP Internal Medicine; Visit Provider Internal Medicine
DX: M54.2 Cervicalgia (principal)
CPT/HCPCS: 97035; 97110; 97140; 97162

== ENCOUNTER → 2018-11-04 08:20 | Outpatient (CLI) | payer MEDICARE, OTHER, SELFPAY ==
[2018-11-04 09:52] LABS: Aspartate Aminotransferase 37 IU/L (14-36); Cholesterol 180 mg/dL (140-199); HDL Cholesterol 93 mg/dL (40-60); LDL Cholesterol Calculated 75 mg/dL (<100); Triglycerides 59 mg/dL (35-150)
[2018-11-04 10:16] LABS: Thyroid Stimulating Hormone 3.63 uIU/mL (0.47-4.68)
== END ==
PROVIDERS: PCP Internal Medicine; Visit Provider Internal Medicine
DX: E03.9 Hypothyroidism, unspecified (principal); E78.2 Mixed hyperlipidemia
CPT/HCPCS: 36415; 80061; 84443; 84450

== ENCOUNTER → 2018-12-14 12:06 | Outpatient (CLI) | payer MEDICARE, OTHER, SELFPAY | PROVIDERS: PCP Internal Medicine; Visit Provider Nurse Practitioner Family | DX: I48.0 Paroxysmal atrial fibrillation (principal) | CPT/HCPCS: 93005; 93010 ==

== ENCOUNTER → 2019-10-02 09:05 | Outpatient (CLI) | payer MEDICARE, OTHER, SELFPAY ==
[2019-10-02 09:38] LABS: Add Manual Diff / Slide Review NO; Basophils Absolute Auto 100 /uL (0-100); Basophils Percent Auto 2.2 % (0-2); Eosinophils Absolute Auto 200 /uL (0-450); Eosinophils Percent Auto 3.6 % (2-4); Hematocrit 39.1 % (36-46); Hemoglobin 13.3 g/dL (12.0-16.0); Lymphocytes Absolute Auto 1400 /uL (1100-4500); Lymphocytes Percent Auto 28.7 % (25-40); Mean Corpuscular HGB Conc 33.9 % (30-36); Mean Corpuscular Hemoglobin 31.6 PG (26-34); Mean Corpuscular Volume 93.1 fL (80-100); Monocytes Absolute Auto 500 /uL (0-900); Monocytes Percent Auto 10.2 % (3-14); Neutrophils Absolute Auto 2700 /uL (1500-7000); Neutrophils Percent Auto 55.3 % (50-75); Platelet Count 200 X10^3/uL (150-400); White Blood Cell Count 4.9 X10^3/uL (4.5-11.0)
[2019-10-02 10:23] LABS: Aspartate Aminotransferase 30 IU/L (14-36); BUN Creatinine Ratio 26.7 (6-22); Blood Urea Nitrogen 24 mg/dL (7-17); Carbon Dioxide 32 mmol/L (22-32); Chloride 98 mmol/L (98-107); Estimated Glomerular Filt Rate > 60.0 mL/min (>60); Glucose 85 mg/dL (80-110); HEMOLYSIS < 15 (0-50); Potassium 4.1 mmol/L (3.4-5.1); Sodium 137 mmol/L (137-145)
[2019-10-02 10:46] LABS: TSH w/ Reflex to FT4 2.72 uIU/mL (0.47-4.68)
== END ==
PROVIDERS: PCP Internal Medicine; Visit Provider Internal Medicine
DX: I48.91 Unspecified atrial fibrillation (principal); E78.2 Mixed hyperlipidemia; E03.9 Hypothyroidism, unspecified
CPT/HCPCS: 36415; 80048; 84443; 84450; 85025

== ENCOUNTER → 2019-10-09 08:29 | Outpatient (CLI) | payer MEDICARE, OTHER, SELFPAY ==
--- NOTE | 2019-10-09 | DI.MG.S_ITS ---
BILATERAL DIGITAL SCREENING MAMMOGRAM 3D/2D WITH CAD WITH AUGMENTATION: 10/09/2019 CLINICAL: Routine screening. Comparison is made to exams dated: 09/30/2018 mammogram, 09/06/2017 mammogram, and 09/01/2016 mammogram - [facility]. There are scattered fibroglandular elements in both breasts. Current study was also evaluated with a Computer Aided Detection (CAD) system. Bilateral breast implants are stable. No significant masses, calcifications, or other findings are seen in either breast. There has been no significant interval change. IMPRESSION: NEGATIVE There is no mammographic evidence of malignancy. A 1 year screening mammogram is recommended. This exam was interpreted at Station ID: [id number]. NOTE: For mammograms, a report in lay terms will be sent to the patient. Approximately 15% of breast malignancies will not be visualized mammographically. In the management of a palpable breast mass, a negative mammogram must not discourage biopsy of a clinically suspicious lesion. Electronically Signed By: Natalia soto/sal:10/10/2019 09:34:35 copy to: Marlena Layne letter sent: Normal Exam ACR BI-RADS Category 1: Negative [id number]
== END ==
PROVIDERS: PCP Internal Medicine; Referring Provider Internal Medicine; Visit Provider Internal Medicine
DX: Z12.31 Encounter for screening mammogram for malignant neoplasm of breast (principal)
CPT/HCPCS: 77063; 77067

== ENCOUNTER → 2019-11-06 14:05 | Outpatient (CLI) | payer MEDICARE, OTHER, SELFPAY ==
--- NOTE | 2019-11-06 14:11 | DI.RAD.S_ITS ---
PROCEDURE: XR LUMBAR SPINE 2-3V INDICATIONS: BACK PAIN TECHNIQUE: 3 views of the lumbar spine were acquired. COMPARISON: [facility], MR, LUMBAR SPINE W&W/O CONTRAST, 02/23/2004, 7:06. FINDINGS: Bones: Mild height loss of the L3 vertebra and superior endplate fracture. There is approximately 20% height loss. Remaining vertebral body heights are grossly preserved. Multilevel degenerative endplate sclerosis and spurring. Diffuse facet arthropathy. Grade 1 retrolisthesis of L2 on L3 grade 1 anterolisthesis of L3 on L4. Severe narrowing of L4-L5 and L5-S1 disc spaces as well as L1-L2 disc space. Moderate narrowing of the remaining lumbar disc spaces. Dextroscoliosis is noted. Mild right hip joint degeneration. Left hip arthroplasty. Soft tissues: Scattered vascular calcifications seen in the aorta. IMPRESSION: L3 vertebra superior endplate fracture with mild height loss as above. This could be acute and could be confirmed with MRI, if clinically warranted. Degenerative changes as above Dictated by: Marshal Dela Cruz M.D. on 11/06/2019 at 15:38 Approved by: Marshal Dela Cruz M.D. on 11/06/2019 at 15:43
== END ==
PROVIDERS: PCP Internal Medicine; Referring Provider Internal Medicine; Visit Provider Internal Medicine
DX: M53.3 Sacrococcygeal disorders, not elsewhere classified (principal); S32.039A Unspecified fracture of third lumbar vertebra, initial encounter for closed fracture; M47.816 Spondylosis without myelopathy or radiculopathy, lumbar region; M43.16 Spondylolisthesis, lumbar region; M16.11 Unilateral primary osteoarthritis, right hip; M41.86 Other forms of scoliosis, lumbar region; W19.XXXA Unspecified fall, initial encounter; Z96.642 Presence of left artificial hip joint
CPT/HCPCS: 72100

== ENCOUNTER → 2019-11-10 07:56 | Outpatient (CLI) | payer MEDICARE, OTHER, SELFPAY ==
--- NOTE | 2019-11-10 | DI.MRI.S_ITS ---
PROCEDURE: MR LUMBAR SPINE WO CON INDICATIONS: Low back pain TECHNIQUE: Noncontrast sagittal T1 spin echo and T2 fast echo, sagittal STIR, axial T1 and T2 fast spin echo through the lumbar spine. In cases with scoliosis, additional coronal T2 fast spin echo may be performed. COMPARISON: [facility], CR, XR LUMBAR SPINE 2-3V, 11/06/2019, 14:13. FINDINGS: Image quality: Excellent. Alignment and Curvature: Retrograde scoliotic curvature with convexity to the right centered at L3. Trace degenerative retrolisthesis of L5 on S1. Trace degenerative anterolisthesis of L3 on L4. Trace degenerative retrolisthesis of L2 on L3. Bone Marrow: Mild acute or subacute superior endplate compression of L3 with approximately 30% anterior vertebral body height loss. No bony retropulsion. No other acute compression fractures. Spinal Cord: Conus medullaris terminates at the L1-L2 level. Visualized cord demonstrates normal signal and size. Paraspinous Soft Tissues: No paravertebral masses. T12-L1: No canal stenosis or foraminal stenosis. L1-L2: Rotatory subluxation with leftward displacement of L1 on L2 measuring approximately a 7 mm. Left posterior lateral disc protrusion. Left lateral recess narrowing and severe left foraminal narrowing. Mild right foraminal narrowing. L2-L3: The no significant canal stenosis. Right foramen is patent. Mild to moderate left foraminal narrowing. L3-L4: Trace anterolisthesis of L3 on L4. Posterior disc bulge. Facet and ligament hypertrophy. Moderate canal stenosis. Mild to moderate right foraminal narrowing. Moderate left foraminal narrowing with flattening deformity on the exiting left L3 nerve root. L4-L5: The disc bulge. Facet and ligament hypertrophy. Severe canal stenosis. Moderate bilateral foraminal narrowing with mild flattening deformity on the exiting bilateral L4 nerve roots. L5-S1: Disc bulge. No significant canal stenosis. Bilateral facet hypertrophy, right greater than left. Moderate right foraminal narrowing with flattening deformity on the exiting right L5 nerve root. Mild to moderate left foraminal narrowing. IMPRESSION: 1. Subacute L3 compression fracture with roughly 30% vertebral body height loss and no bony retropulsion or canal stenosis. 2. At L1-L2, there is left lateral recess narrowing and severe left foraminal narrowing. 3. Canal stenosis is moderate at L3-L4 and severe at L4-L5. 4. Multilevel foraminal narrowing as described. Comment: The presence of a subacute compression fracture of L3 was discussed with Dr. Laguna at the time of study dictation. Dictated by: Marlon Alexander M.D. on 11/10/2019 at 14:51 Approved by: Marlon Alexander M.D. on 11/10/2019 at 16:27
== END ==
PROVIDERS: PCP Internal Medicine; Referring Provider Internal Medicine; Visit Provider Internal Medicine
DX: M54.5 Low back pain (principal); S32.030A Wedge compression fracture of third lumbar vertebra, initial encounter for closed fracture; M48.061 Spinal stenosis, lumbar region without neurogenic claudication; M48.07 Spinal stenosis, lumbosacral region
CPT/HCPCS: 72148

== ENCOUNTER 2020-05-11 09:45 | Outpatient (RCR) | payer MEDICARE, OTHER, SELFPAY ==
--- NOTE | 2020-03-16 18:14 | PT.OIE ---
Current Diagnoses Low back pain (03/16/20) Abnormal posture (03/16/20) Weakness (03/16/20) Wedge compression fracture of third lumbar vertebra, subsequent encounter for fracture with delayed healing (03/16/20) Wedge compression fracture of fourth lumbar vertebra, subsequent encounter for fracture with delayed healing (03/16/20) Past Surgical History (This Medical Record has been edited. Action required.) History of bladder suspension procedure History of breast augmentation History of left hip replacement (Acute) History of third molar tooth extraction History of tonsillectomy S/P total abdominal hysterectomy and bilateral salpingo-oophorectomy Status post appendectomy Status post laminectomy Visit Care Team Role Provider Type Joel Laguna MD Attending Provider Physician Primary Care Provider Referring Provider Specialty: Internal Medicine Address: [address] [place] [address], [facility] Email: [email or web address] Initial Evaluation PT-OP-A Visit Information Start: 03/15/20 17:39 Freq: Status: Active Protocol: Document 03/16/20 13:48 [facility] (Rec: 03/16/20 14:38 [facility] [id number]) Out-Patient Physical Therapy Visit Information Visit Information Visit Type Initial Evaluation Visit Note 09/12 Visit Start Time 13:48 Visit Stop Time 14:33 Total Visit Minutes 45 Visit Number 1 Number of BODY MECHANIC Visits 0 PT-OP-B Current Condition Start: 03/15/20 17:39 Freq: Status: Active Protocol: Document 03/16/20 13:48 [facility] (Rec: 03/16/20 14:38 [facility] [id number]) Current Condition History of Current Condition Onset Date Oct Current Complaints L SI pain, L elbow History of Current Condition Pt reports she fell when getting out of the shower and turned to get her lotion and it felt like someone turned a light switch off and she fell on R hip onto the tile shower. This was at end of Oct . She finally got a MRI which showed compression fracture of L3. Pt reports biggest problem is bending down. She has about 1/10 pain all the time. Pt reprots sitting and getting up and that is excruiating and has to do maneuvers to get back to standing up again. Pt reports pain in L elbow started againa and feels like this is all connected. Pt reports she has had to compensate quite a bit and R knee is giving her a lot of pain and going to see someone about stem cells. Pt has been doing stretching and using hemp oil on her elbow to help. Pt reports she has to maneuver herself to get socks on and it takes aobut 10 min. Pt is able to walk 3-4 miles/ day. Pt has a EKG in her to check for any abnormalties. Pt reports pain had started to get better until 2 months ago when se pulled a weed out and pain increased significantly Treatment Goals Patient/Caregiver Goals be able to get up/down, be able to bend over, be able to put socks on easily, be able to get up/down for things like feeding dog without pain. Personal Factors Other Personal Factors That May Effect R knee pain, 3 recent cardiac Therapy/Recovery ablations, L SI pain, L3 lumbar compression fracture, L elbow pain, hx TIA, hx L hip replacement; hx of L4-5 disc injury w/pain down left leg in 70s and was put on bed rest for 3 months then had discectomy PT-OP-C Subjective Start: 03/15/20 17:39 Freq: Status: Active Protocol: Document 03/16/20 13:48 [facility] (Rec: 03/16/20 14:38 [facility] [id number]) Patient Questionnaires Oswestry Low Back Index Oswestry Score 19/50 Oswestry Impairment 20 to 39% Impaired (Score 20- 39) OP-PT Pain Assessment Location LB Pain Location Details L SI mostly Intensity 10 Scale Used Numeric (0 - 10) Description Sharp,With Movement Description- Other catching, 1/10 at rest Frequency Daily Pain Duration until I can unhook it Variations/Patterns denies any radiation Pain Aggravating Factors Bending Other Pain Aggravating Factors standing from sitting, sitting on anything soft Pain Alleviating Factors Heat,Medication Other Pain Alleviating Factors stretches PT-OP-F Manual Assessment Start: 03/15/20 17:39 Freq: Status: Active Protocol: Document 03/16/20 13:48 [facility] (Rec: 03/16/20 14:38 [facility] [id number]) Manual Assessments Joint Mobility Assessment Joint Mobility Assessment L iliac crest higher, equal greater trochanters PT-OP-G Mobility & Gait Start: 03/15/20 17:39 Freq: Status: Active Protocol: Document 03/16/20 13:48 [facility] (Rec: 03/16/20 14:38 [facility] [id number]) OP Mobility Evaluation Bed Mobility Rolling signficiant ext w/rolling PT-OP-J Posture/Palpation/Skin Start: 03/15/20 17:39 Freq: Status: Active Protocol: Document 03/16/20 13:48 [facility] (Rec: 03/16/20 14:38 [facility] [id number]) Posture Evaluation Judah Postural Classification System Judah Postural Classifications Posterior/Posterior Lumbar Protective Mechanism Left AP 0 Lumbar Protective Mechanism Right AP 0 Lumbar Protective Mechanism Left PA 0 Lumbar Protective Mechanism Right PA 0 Comments Posture Comments sidebent L : R>L IR of femur, pelvis sheared R, fwd rounding of shoulders PT-OP-K Range of Motion Start: 03/15/20 17:39 Freq: Status: Active Protocol: Document 03/16/20 13:48 [facility] (Rec: 03/16/20 14:38 [facility] [id number]) Lumbar Spine Range of Motion Lumbar Spine Active Degrees Flexion 40 Extension 5 Rotation Left 41 Rotation Right 46 Lateral Flexion Left 12 Lateral Flexion Right 5 Comments signifacnt pain coming up out of flex, pain B SB PT-OP-M Strength Start: 03/15/20 17:39 Freq: Status: Active Protocol: Document 03/16/20 13:48 [facility] (Rec: 03/16/20 14:38 [facility] [id number]) Hip Strength Hip Manual Muscle Testing Right Flexion (L2) 4- Good- Extension (S1) 3+ Fair+ Abduction 4 Good External Rotation 4+ Good+ Internal Rotation 4+ Good+ Left Flexion (L2) 4- Good- Extension (S1) 3+ Fair+ Abduction 3+ Fair+ External Rotation 4- Good- Internal Rotation 4 Good Knee Strength Knee Manual Muscle Testing Right Flexion (S2) 5 Normal Extension (L3) 4 Good Left Flexion (S2) 5 Normal Extension (L3) 5 Normal PT-OP-Q Treatments Start: 03/15/20 17:39 Freq: Status: Active Protocol: Document 03/16/20 13:48 [facility] (Rec: 03/16/20 14:38 [facility] [id number]) Therapeutic Exercises Supine Exercises 2 Supine Exercise Name HS stretch Side left Reps/Minutes 30 sec 1 Supine Exercise Name pelvic tilt Reps/Minutes 8 PT-OP-T Assessment and Plan Start: 03/15/20 17:39 Freq: Status: Active Protocol: Document 03/16/20 13:48 [facility] (Rec: 03/16/20 14:38 [facility] [id number]) Physical Therapy Assessment Rehab Potential Rehabilitation Potential Good Evaluation Complexity Number of Personal Factors/Comorbidities 3 or More Number of Body Systems Impaired 4 or More Clinical Presentation at Evaluation Evolving Impairments Impairments Activity Tolerance,Balance, Functional Activities, Functional Mobility,Gait,Pain, Posture,ROM,Soft Tissue Mobility,Strength,Transfers Goals Four Short Term Goal (STG) Pt will be able to do sit<> stand with no greater than 2/ 10 pain. STG Duration 04/16/20 Half-Way Goal (LTG) pt willb e able to get up/down from ground to do typical gardening tasks without inc pain. LTG Duration 05/17/20 Three Impairment ROM Short Term Goal (STG) Pt will improve flex ROM by 15 deg to inc ability to bend over. STG Duration 04/16/20 Data Entry Coordinator Goal (LTG) Pt will be able to bend over to put on/off shoes/socks and feed dog without inc pain. LTG Duration 05/17/20 Two Impairment strength Short Term Goal (STG) Pt will be indep with HEP STG Duration 04/16/20 Half-Way Goal (LTG) Pt will have at least 4+/5 LE strength and 3/5 LPM to show improved core stability in order to be able to do typical daily activities without pain . LTG Duration 05/17/20 One Impairment Oswestry 19/50 Short Term Goal (STG) pt will imrpove score on oswestry to 13/50 to show improved functional ability. STG Duration 04/16/20 Half-Way Goal (LTG) pt will imrpove score on oswestry to 4/50 to show improved functional ability. LTG Duration 05/17/20 Assessment Summary Assessment Pt presents with L SI pain after fall in Feb that causes compression fracture of L3. Majority of pt's pain is in L SI vs lumbar spine. She has elevated L side of pelvis and has dysfunctional posture at this time, which likely contributes to the pain. She has difficulty with sit<> stands and is unable to transition up/down from the ground and in/out of a chair without extreme pain. She is limited in her mobility d/t this pain and would beneift from skilled PT to address these deficits in order to improve quality of life and increase function. Physical Therapy Plan Frequency and Duration Frequency of Treatment 2x/Week Duration of Treatment 2 months Plan of Care Start Date 03/16/20 Plan of Care End Date 05/17/20 Therapeutic Interventions Therapeutic Interventions Aquatic Therapy,Balance Training,Gait Training,Home Exercise Program,Joint Mobilizations,Manual Therapy, Neuromuscular Re-education, Patient/Caregiver Education, Self-Care/Home Management,Soft Tissue Mobilization,Taping, Therapeutic Activities, Therapeutic Exercises Modalities Cold Pack/Ice Massage,Electric Stimulation,Hot Packs, Traction- Mechanical, Ultrasound Next Visit Focus/Plan Next Note Type Treatment Note Next Visit Plan review exercises, consider pelvic realignment exercises, manual treatment of hip & pelvis, STM To LB, core series
--- NOTE | 2020-03-16 18:14 | PT.OPPOC ---
Physical, Occupational & Speech Therapy At [facility] Current Diagnoses Low back pain (03/16/20) Abnormal posture (03/16/20) Weakness (03/16/20) Wedge compression fracture of third lumbar vertebra, subsequent encounter for fracture with delayed healing (03/16/20) Wedge compression fracture of fourth lumbar vertebra, subsequent encounter for fracture with delayed healing (03/16/20) Visit Care Team Role Provider Type Joel Laguna MD Attending Provider Physician Primary Care Provider Referring Provider Specialty: Internal Medicine Address: [address] [place] [address], [facility] Email: [email or web address] Plan Of Care PT-OP-T Assessment and Plan Start: 03/15/20 17:39 Freq: Status: Active Protocol: Document 03/16/20 13:48 [facility] (Rec: 03/16/20 14:38 [facility] [id number]) Physical Therapy Assessment Rehab Potential Rehabilitation Potential Good Evaluation Complexity Number of Personal Factors/Comorbidities 3 or More Number of Body Systems Impaired 4 or More Clinical Presentation at Evaluation Evolving Impairments Impairments Activity Tolerance,Balance, Functional Activities, Functional Mobility,Gait,Pain, Posture,ROM,Soft Tissue Mobility,Strength,Transfers Goals Four Short Term Goal (STG) Pt will be able to do sit<> stand with no greater than 2/ 10 pain. STG Duration 04/16/20 Ultrasound Applications Specialist Goal (LTG) pt willb e able to get up/down from ground to do typical gardening tasks without inc pain. LTG Duration 05/17/20 Three Impairment ROM Short Term Goal (STG) Pt will improve flex ROM by 15 deg to inc ability to bend over. STG Duration 04/16/20 Prison Goal (LTG) Pt will be able to bend over to put on/off shoes/socks and feed dog without inc pain. LTG Duration 05/17/20 Two Impairment strength Short Term Goal (STG) Pt will be indep with HEP STG Duration 04/16/20 Ultrasound Applications Specialist Goal (LTG) Pt will have at least 4+/5 LE strength and 3/5 LPM to show improved core stability in order to be able to do typical daily activities without pain . LTG Duration 05/17/20 One Impairment Oswestry 19/50 Short Term Goal (STG) pt will imrpove score on oswestry to 13/50 to show improved functional ability. STG Duration 04/16/20 Prison Goal (LTG) pt will imrpove score on oswestry to 4/50 to show improved functional ability. LTG Duration 05/17/20 Assessment Summary Assessment Pt presents with L SI pain after fall in Feb that causes compression fracture of L3. Majority of pt's pain is in L SI vs lumbar spine. She has elevated L side of pelvis and has dysfunctional posture at this time, which likely contributes to the pain. She has difficulty with sit<> stands and is unable to transition up/down from the ground and in/out of a chair without extreme pain. She is limited in her mobility d/t this pain and would beneift from skilled PT to address these deficits in order to improve quality of life and increase function. Physical Therapy Plan Frequency and Duration Frequency of Treatment 2x/Week Duration of Treatment 2 months Plan of Care Start Date 03/16/20 Plan of Care End Date 05/17/20 Therapeutic Interventions Therapeutic Interventions Aquatic Therapy,Balance Training,Gait Training,Home Exercise Program,Joint Mobilizations,Manual Therapy, Neuromuscular Re-education, Patient/Caregiver Education, Self-Care/Home Management,Soft Tissue Mobilization,Taping, Therapeutic Activities, Therapeutic Exercises Modalities Cold Pack/Ice Massage,Electric Stimulation,Hot Packs, Traction- Mechanical, Ultrasound Next Visit Focus/Plan Next Note Type Treatment Note Next Visit Plan review exercises, consider pelvic realignment exercises, manual treatment of hip & pelvis, STM To LB, core series Plan of Care Dates Plan of Care Start Date 03/16/20 Plan of Care End Date 05/17/20 Electronically Signed by: Rosario Ortiz, PT 03/16/20 2288 Please Sign and Return: I have reviewed this Plan of Care and certify that the skilled therapy services above are required to meet the patient?s needs. Physician Signature Date Printed Name and Credentials Clinical Instructor Signature Printed Name and Credentials
--- NOTE | 2020-03-23 18:12 | PT.OTN ---
Current Diagnoses Low back pain (03/23/20) Abnormal posture (03/23/20) Weakness (03/23/20) Wedge compression fracture of third lumbar vertebra, subsequent encounter for fracture with delayed healing (03/23/20) Wedge compression fracture of fourth lumbar vertebra, subsequent encounter for fracture with delayed healing (03/23/20) Physical Therapy Treatment Note PT-OP-A Visit Information Start: 03/15/20 17:39 Freq: Status: Active Protocol: Document 03/23/20 18:03 [facility] (Rec: 03/23/20 18:12 [facility] [id number]) Out-Patient Physical Therapy Visit Information Visit Information Visit Type Treatment Note Visit Note 10/13 Visit Start Time 09:02 Visit Stop Time 09:45 Total Visit Minutes 43 Visit Number 2 Number of SHEARING SHED WORKER Visits 0 PT-OP-B Current Condition Start: 03/15/20 17:39 Freq: Status: Active Protocol: Document 03/16/20 13:48 [facility] (Rec: 03/16/20 14:38 [facility] [id number]) Current Condition History of Current Condition Onset Date Oct Current Complaints L SI pain, L elbow History of Current Condition Pt reports she fell when getting out of the shower and turned to get her lotion and it felt like someone turned a light switch off and she fell on R hip onto the tile shower. This was at end of Oct . She finally got a MRI which showed compression fracture of L3. Pt reports biggest problem is bending down. She has about 1/10 pain all the time. Pt reprots sitting and getting up and that is excruiating and has to do maneuvers to get back to standing up again. Pt reports pain in L elbow started againa and feels like this is all connected. Pt reports she has had to compensate quite a bit and R knee is giving her a lot of pain and going to see someone about stem cells. Pt has been doing stretching and using hemp oil on her elbow to help. Pt reports she has to maneuver herself to get socks on and it takes aobut 10 min. Pt is able to walk 3-4 miles/ day. Pt has a EKG in her to check for any abnormalties. Pt reports pain had started to get better until 2 months ago when [facility] pulled a weed out and pain increased significantly Treatment Goals Patient/Caregiver Goals be able to get up/down, be able to bend over, be able to put socks on easily, be able to get up/down for things like feeding dog without pain. Personal Factors Other Personal Factors That May Effect R knee pain, 3 recent cardiac Therapy/Recovery ablations, L SI pain, L3 lumbar compression fracture, L elbow pain, hx TIA, hx L hip replacement; hx of L4-5 disc injury w/pain down left leg in 70s and was put on bed rest for 3 months then had discectomy PT-OP-C Subjective Start: 03/15/20 17:39 Freq: Status: Active Protocol: Document 03/23/20 18:03 [facility] (Rec: 03/23/20 18:12 [facility] [id number]) OP-PT Subjective Patient Comments Patient Comments Pt reports she is already feeling better from working on posture & doing exercises. She does the exercises mult times a day. Patient Reported Progress Improving PT-OP-F Manual Assessment Start: 03/15/20 17:39 Freq: Status: Active Protocol: Document 03/16/20 13:48 [facility] (Rec: 03/16/20 14:38 [facility] [id number]) Manual Assessments Joint Mobility Assessment Joint Mobility Assessment L iliac crest higher, equal greater trochanters PT-OP-G Mobility & Gait Start: 03/15/20 17:39 Freq: Status: Active Protocol: Document 03/16/20 13:48 [facility] (Rec: 03/16/20 14:38 [facility] [id number]) OP Mobility Evaluation Bed Mobility Rolling signficiant ext w/rolling PT-OP-J Posture/Palpation/Skin Start: 03/15/20 17:39 Freq: Status: Active Protocol: Document 03/16/20 13:48 [facility] (Rec: 03/16/20 14:38 [facility] [id number]) Posture Evaluation Judah Postural Classification System Judah Postural Classifications Posterior/Posterior Lumbar Protective Mechanism Left AP 0 Lumbar Protective Mechanism Right AP 0 Lumbar Protective Mechanism Left PA 0 Lumbar Protective Mechanism Right PA 0 Comments Posture Comments sidebent L : R>L IR of femur, pelvis sheared R, fwd rounding of shoulders PT-OP-K Range of Motion Start: 03/15/20 17:39 Freq: Status: Active Protocol: Document 03/16/20 13:48 [facility] (Rec: 03/16/20 14:38 [facility] [id number]) Lumbar Spine Range of Motion Lumbar Spine Active Degrees Flexion 40 Extension 5 Rotation Left 41 Rotation Right 46 Lateral Flexion Left 12 Lateral Flexion Right 5 Comments signifacnt pain coming up out of flex, pain B SB PT-OP-M Strength Start: 03/15/20 17:39 Freq: Status: Active Protocol: Document 03/16/20 13:48 [facility] (Rec: 03/16/20 14:38 [facility] [id number]) Hip Strength Hip Manual Muscle Testing Right Flexion (L2) 4- Good- Extension (S1) 3+ Fair+ Abduction 4 Good External Rotation 4+ Good+ Internal Rotation 4+ Good+ Left Flexion (L2) 4- Good- Extension (S1) 3+ Fair+ Abduction 3+ Fair+ External Rotation 4- Good- Internal Rotation 4 Good Knee Strength Knee Manual Muscle Testing Right Flexion (S2) 5 Normal Extension (L3) 4 Good Left Flexion (S2) 5 Normal Extension (L3) 5 Normal PT-OP-Q Treatments Start: 03/15/20 17:39 Freq: Status: Active Protocol: Document 03/23/20 18:03 [facility] (Rec: 03/23/20 18:12 [facility] [id number]) Therapeutic Exercises Supine Exercises 1 Supine Exercise Name pelvic realignment-3 exercises Reps/Minutes 3 sec x5 ea Standing Exercises 6 Standing Exercise Name pec stretch Side bilateral Reps/Minutes 30 sec Comments doorway Manual Therapy Treatment Soft Tissue Mobilization 3 Body Location glutes L Mobilization Type Rolling,Sustained Pressure Intensity/Depth Moderate Body Position Sidelying 2 Body Location QL & ES L Mobilization Type Rolling Intensity/Depth Moderate Body Position Sidelying 1 Body Location L iliacus Mobilization Type Sustained Pressure Intensity/Depth Moderate Body Position Supine PT-OP-T Assessment and Plan Start: 03/15/20 17:39 Freq: Status: Active Protocol: Document 03/23/20 18:03 [facility] (Rec: 03/23/20 18:12 [facility] [id number]) Physical Therapy Assessment Goals Four Short Term Goal (STG) Pt will be able to do sit<> stand with no greater than 2/ 10 pain. STG Duration 04/16/20 Film Mounter Goal (LTG) pt willb e able to get up/down from ground to do typical gardening tasks without inc pain. LTG Duration 05/17/20 Three Impairment ROM Short Term Goal (STG) Pt will improve flex ROM by 15 deg to inc ability to bend over. STG Duration 04/16/20 Senior Living Goal (LTG) Pt will be able to bend over to put on/off shoes/socks and feed dog without inc pain. LTG Duration 05/17/20 Two Impairment strength Short Term Goal (STG) Pt will be indep with HEP STG Duration 04/16/20 Film Mounter Goal (LTG) Pt will have at least 4+/5 LE strength and 3/5 LPM to show improved core stability in order to be able to do typical daily activities without pain . LTG Duration 05/17/20 One Impairment Oswestry 19/50 Short Term Goal (STG) pt will imrpove score on oswestry to 13/50 to show improved functional ability. STG Duration 04/16/20 Film Mounter Goal (LTG) pt will imrpove score on oswestry to 4/50 to show improved functional ability. LTG Duration 05/17/20 Assessment Summary Assessment Pt did well with all exercises without report of inc pain. She has significant restriciton in pelvis into ant elevation & post depression. She would benefit from cont manaul to work on hip and innominate to dec pain and imrpove functionality. Physical Therapy Plan Frequency and Duration Frequency of Treatment 2x/Week Duration of Treatment 2 months Plan of Care Start Date 03/16/20 Plan of Care End Date 05/17/20 Next Visit Focus/Plan Next Note Type Treatment Note Next Visit Plan review pelvic realignment, attempt core series exercises, PNF for ant elevation/post depression, STM as needed
--- NOTE | 2020-03-29 18:09 | PT.OTN ---
Current Diagnoses Low back pain (03/29/20) Abnormal posture (03/29/20) Weakness (03/29/20) Wedge compression fracture of third lumbar vertebra, subsequent encounter for fracture with delayed healing (03/29/20) Wedge compression fracture of fourth lumbar vertebra, subsequent encounter for fracture with delayed healing (03/29/20) Physical Therapy Treatment Note PT-OP-A Visit Information Start: 03/15/20 17:39 Freq: Status: Active Protocol: Document 03/29/20 18:03 [facility] (Rec: 03/29/20 18:09 [facility] [id number]) Out-Patient Physical Therapy Visit Information Visit Information Visit Type Treatment Note Visit Note 11/10 Visit Start Time 16:07 Visit Stop Time 16:47 Total Visit Minutes 40 Visit Number 3 Number of CLINICAL LABORATORY SCIENTIST Visits 0 PT-OP-B Current Condition Start: 03/15/20 17:39 Freq: Status: Active Protocol: Document 03/16/20 13:48 [facility] (Rec: 03/16/20 14:38 [facility] [id number]) Current Condition History of Current Condition Onset Date Oct Current Complaints L SI pain, L elbow History of Current Condition Pt reports she fell when getting out of the shower and turned to get her lotion and it felt like someone turned a light switch off and she fell on R hip onto the tile shower. This was at end of Oct . She finally got a MRI which showed compression fracture of L3. Pt reports biggest problem is bending down. She has about 1/10 pain all the time. Pt reprots sitting and getting up and that is excruiating and has to do maneuvers to get back to standing up again. Pt reports pain in L elbow started againa and feels like this is all connected. Pt reports she has had to compensate quite a bit and R knee is giving her a lot of pain and going to see someone about stem cells. Pt has been doing stretching and using hemp oil on her elbow to help. Pt reports she has to maneuver herself to get socks on and it takes aobut 10 min. Pt is able to walk 3-4 miles/ day. Pt has a EKG in her to check for any abnormalties. Pt reports pain had started to get better until 2 months ago when [facility] pulled a weed out and pain increased significantly Treatment Goals Patient/Caregiver Goals be able to get up/down, be able to bend over, be able to put socks on easily, be able to get up/down for things like feeding dog without pain. Personal Factors Other Personal Factors That May Effect R knee pain, 3 recent cardiac Therapy/Recovery ablations, L SI pain, L3 lumbar compression fracture, L elbow pain, hx TIA, hx L hip replacement; hx of L4-5 disc injury w/pain down left leg in 70s and was put on bed rest for 3 months then had discectomy PT-OP-C Subjective Start: 03/15/20 17:39 Freq: Status: Active Protocol: Document 03/29/20 18:03 [facility] (Rec: 03/29/20 18:09 [facility] [id number]) OP-PT Subjective Patient Comments Patient Comments Pt reports she was very painful the night after last session & into the next day. Improved today. She feels like the pelvic tilts really help her. Nichole xercise was difficult to do. PT-OP-F Manual Assessment Start: 03/15/20 17:39 Freq: Status: Active Protocol: Document 03/16/20 13:48 [facility] (Rec: 03/16/20 14:38 [facility] [id number]) Manual Assessments Joint Mobility Assessment Joint Mobility Assessment L iliac crest higher, equal greater trochanters PT-OP-G Mobility & Gait Start: 03/15/20 17:39 Freq: Status: Active Protocol: Document 03/16/20 13:48 [facility] (Rec: 03/16/20 14:38 [facility] [id number]) OP Mobility Evaluation Bed Mobility Rolling signficiant ext w/rolling PT-OP-J Posture/Palpation/Skin Start: 03/15/20 17:39 Freq: Status: Active Protocol: Document 03/16/20 13:48 [facility] (Rec: 03/16/20 14:38 [facility] [id number]) Posture Evaluation Judah Postural Classification System Judah Postural Classifications Posterior/Posterior Lumbar Protective Mechanism Left AP 0 Lumbar Protective Mechanism Right AP 0 Lumbar Protective Mechanism Left PA 0 Lumbar Protective Mechanism Right PA 0 Comments Posture Comments sidebent L : R>L IR of femur, pelvis sheared R, fwd rounding of shoulders PT-OP-K Range of Motion Start: 03/15/20 17:39 Freq: Status: Active Protocol: Document 03/16/20 13:48 [facility] (Rec: 03/16/20 14:38 [facility] [id number]) Lumbar Spine Range of Motion Lumbar Spine Active Degrees Flexion 40 Extension 5 Rotation Left 41 Rotation Right 46 Lateral Flexion Left 12 Lateral Flexion Right 5 Comments signifacnt pain coming up out of flex, pain B SB PT-OP-M Strength Start: 03/15/20 17:39 Freq: Status: Active Protocol: Document 03/16/20 13:48 [facility] (Rec: 03/16/20 14:38 [facility] [id number]) Hip Strength Hip Manual Muscle Testing Right Flexion (L2) 4- Good- Extension (S1) 3+ Fair+ Abduction 4 Good External Rotation 4+ Good+ Internal Rotation 4+ Good+ Left Flexion (L2) 4- Good- Extension (S1) 3+ Fair+ Abduction 3+ Fair+ External Rotation 4- Good- Internal Rotation 4 Good Knee Strength Knee Manual Muscle Testing Right Flexion (S2) 5 Normal Extension (L3) 4 Good Left Flexion (S2) 5 Normal Extension (L3) 5 Normal PT-OP-Q Treatments Start: 03/15/20 17:39 Freq: Status: Active Protocol: Document 03/29/20 18:03 [facility] (Rec: 03/29/20 18:09 [facility] [id number]) Therapeutic Exercises Standing Exercises 5 Standing Exercise Name wall posture Reps/Minutes 1 min 4 Standing Exercise Name hip hinge Side bilateral Reps/Minutes 15 Comments w/yardstick on back 3 Standing Exercise Name squat Side bilateral Reps/Minutes 5 Comments stopped d/t knee pain 2 Standing Exercise Name wall squat Side bilateral Reps/Minutes 5 Comments stopped d/t knee pain and grinding Therapeutic Activity Therapeutic Activity posture Comments 1. seated posture unsupported w/ towel support 2. appropriate seat height 3. seated supported posture w/ edu how to use lumbar support & use of towels behind back & how can use for car 4. standing posture 1 Name lifting mechanics with straight back PT-OP-T Assessment and Plan Start: 03/15/20 17:39 Freq: Status: Active Protocol: Document 03/29/20 18:03 [facility] (Rec: 03/29/20 18:09 [facility] [id number]) Physical Therapy Assessment Goals Four Short Term Goal (STG) Pt will be able to do sit<> stand with no greater than 2/ 10 pain. STG Duration 04/16/20 Longterm Goal (LTG) pt willb e able to get up/down from ground to do typical gardening tasks without inc pain. LTG Duration 05/17/20 Three Impairment ROM Short Term Goal (STG) Pt will improve flex ROM by 15 deg to inc ability to bend over. STG Duration 04/16/20 Electronic Scale Subassembler Goal (LTG) Pt will be able to bend over to put on/off shoes/socks and feed dog without inc pain. LTG Duration 05/17/20 Two Impairment strength Short Term Goal (STG) Pt will be indep with HEP STG Duration 04/16/20 Longterm Goal (LTG) Pt will have at least 4+/5 LE strength and 3/5 LPM to show improved core stability in order to be able to do typical daily activities without pain . LTG Duration 05/17/20 One Impairment Oswestry 19/50 Short Term Goal (STG) pt will imrpove score on oswestry to 13/50 to show improved functional ability. STG Duration 04/16/20 Electronic Scale Subassembler Goal (LTG) pt will imrpove score on oswestry to 4/50 to show improved functional ability. LTG Duration 05/17/20 Assessment Summary Assessment Pt was able to stand up without pain from chair she initially found uncomfortable when trained to prop herself appropirately. She was able to correct posture with help of manual cueing, mirror & demo. Able to do well with hip hinge with cueing but has difficulty with squat d/t R knee pain & grinding and has difficulty bringing hips back during squat. Physical Therapy Plan Frequency and Duration Frequency of Treatment 2x/Week Duration of Treatment 2 months Plan of Care Start Date 03/16/20 Plan of Care End Date 05/17/20 Next Visit Focus/Plan Next Note Type Treatment Note Next Visit Plan review posture & hip hinge, work on wt acceptance into sit to stand, attempt core series exercises, PNF for ant elevation/post depression, STM as needed
--- NOTE | 2020-03-31 18:14 | PT.OTN ---
Current Diagnoses Low back pain (03/31/20) Abnormal posture (03/31/20) Weakness (03/31/20) Wedge compression fracture of third lumbar vertebra, subsequent encounter for fracture with delayed healing (03/31/20) Wedge compression fracture of fourth lumbar vertebra, subsequent encounter for fracture with delayed healing (03/31/20) Physical Therapy Treatment Note PT-OP-A Visit Information Start: 03/15/20 17:39 Freq: Status: Active Protocol: Document 03/31/20 17:55 [facility] (Rec: 03/31/20 18:14 [facility] [id number]) Out-Patient Physical Therapy Visit Information Visit Information Visit Type Treatment Note Visit Note 12/11 Visit Start Time 15:15 Visit Stop Time 16:00 Total Visit Minutes 45 Visit Number 4 Number of CUSTOMS BROKER Visits 0 PT-OP-B Current Condition Start: 03/15/20 17:39 Freq: Status: Active Protocol: Document 03/16/20 13:48 [facility] (Rec: 03/16/20 14:38 [facility] [id number]) Current Condition History of Current Condition Onset Date Oct Current Complaints L SI pain, L elbow History of Current Condition Pt reports she fell when getting out of the shower and turned to get her lotion and it felt like someone turned a light switch off and she fell on R hip onto the tile shower. This was at end of Oct . She finally got a MRI which showed compression fracture of L3. Pt reports biggest problem is bending down. She has about 1/10 pain all the time. Pt reprots sitting and getting up and that is excruiating and has to do maneuvers to get back to standing up again. Pt reports pain in L elbow started againa and feels like this is all connected. Pt reports she has had to compensate quite a bit and R knee is giving her a lot of pain and going to see someone about stem cells. Pt has been doing stretching and using hemp oil on her elbow to help. Pt reports she has to maneuver herself to get socks on and it takes aobut 10 min. Pt is able to walk 3-4 miles/ day. Pt has a EKG in her to check for any abnormalties. Pt reports pain had started to get better until [address] [facility] pulled a weed out and pain increased significantly Treatment Goals Patient/Caregiver Goals be able to get up/down, be able to bend over, be able to put socks on easily, be able to get up/down for things like feeding dog without pain. Personal Factors Other Personal Factors That May Effect R knee pain, 3 recent cardiac Therapy/Recovery ablations, L SI pain, L3 lumbar compression fracture, L elbow pain, hx TIA, hx L hip replacement; hx of L4-5 disc injury w/pain down left leg in 70s and was put on bed rest for 3 months then had discectomy PT-OP-C Subjective Start: 03/15/20 17:39 Freq: Status: Active Protocol: Document 03/31/20 17:55 [facility] (Rec: 03/31/20 18:14 [facility] [id number]) OP-PT Subjective Patient Comments Patient Comments Pt reports she has been doing well since last time in PT. Reports no meds today. She is really working on her posture Patient Reported Progress Improving PT-OP-F Manual Assessment Start: 03/15/20 17:39 Freq: Status: Active Protocol: Document 03/16/20 13:48 [facility] (Rec: 03/16/20 14:38 [facility] [id number]) Manual Assessments Joint Mobility Assessment Joint Mobility Assessment L iliac crest higher, equal greater trochanters PT-OP-G Mobility & Gait Start: 03/15/20 17:39 Freq: Status: Active Protocol: Document 03/16/20 13:48 [facility] (Rec: 03/16/20 14:38 [facility] [id number]) OP Mobility Evaluation Bed Mobility Rolling signficiant ext w/rolling PT-OP-J Posture/Palpation/Skin Start: 03/15/20 17:39 Freq: Status: Active Protocol: Document 03/16/20 13:48 [facility] (Rec: 03/16/20 14:38 [facility] [id number]) Posture Evaluation Judah Postural Classification System Judah Postural Classifications Posterior/Posterior Lumbar Protective Mechanism Left AP 0 Lumbar Protective Mechanism Right AP 0 Lumbar Protective Mechanism Left PA 0 Lumbar Protective Mechanism Right PA 0 Comments Posture Comments sidebent L : R>L IR of femur, pelvis sheared R, fwd rounding of shoulders PT-OP-K Range of Motion Start: 03/15/20 17:39 Freq: Status: Active Protocol: Document 03/16/20 13:48 [facility] (Rec: 03/16/20 14:38 [facility] [id number]) Lumbar Spine Range of Motion Lumbar Spine Active Degrees Flexion 40 Extension 5 Rotation Left 41 Rotation Right 46 Lateral Flexion Left 12 Lateral Flexion Right 5 Comments signifacnt pain coming up out of flex, pain B SB PT-OP-M Strength Start: 03/15/20 17:39 Freq: Status: Active Protocol: Document 03/16/20 13:48 [facility] (Rec: 03/16/20 14:38 [facility] [id number]) Hip Strength Hip Manual Muscle Testing Right Flexion (L2) 4- Good- Extension (S1) 3+ Fair+ Abduction 4 Good External Rotation 4+ Good+ Internal Rotation 4+ Good+ Left Flexion (L2) 4- Good- Extension (S1) 3+ Fair+ Abduction 3+ Fair+ External Rotation 4- Good- Internal Rotation 4 Good Knee Strength Knee Manual Muscle Testing Right Flexion (S2) 5 Normal Extension (L3) 4 Good Left Flexion (S2) 5 Normal Extension (L3) 5 Normal PT-OP-Q Treatments Start: 03/15/20 17:39 Freq: Status: Active Protocol: Document 03/31/20 17:55 [facility] (Rec: 03/31/20 18:14 [facility] [id number]) Therapeutic Exercises Supine Exercises 2 Supine Exercise Name core series:flex, diagonal, ext, flex Side bilateral Reps/Minutes 20 sec ea Standing Exercises 6 Standing Exercise Name cat cow over sink Reps/Minutes 10 5 Standing Exercise Name jovanna pose standing Resistance fwd & to R Reps/Minutes 20sec ea 3 Standing Exercise Name sit<>stand Side bilateral Equipment Used L2 Reps/Minutes 8 Comments from elevated mat Therapeutic Activity Therapeutic Activity posture Name set up of driving seat with education of use of supports 1 Name traction facilitaiton for training for sit to stand for wt acceptance BLEs Self-Care/Home Management Treatment Education Patient Education Home Exercise Program PT-OP-T Assessment and Plan Start: 03/15/20 17:39 Freq: Status: Active Protocol: Document 03/31/20 17:55 [facility] (Rec: 03/31/20 18:14 [facility] [id number]) Physical Therapy Assessment Goals Four Short Term Goal (STG) Pt will be able to do sit<> stand with no greater than 2/ 10 pain. STG Duration 04/16/20 Fdc Goal (LTG) pt willb e able to get up/down from ground to do typical gardening tasks without inc pain. LTG Duration 05/17/20 Three Impairment ROM Short Term Goal (STG) Pt will improve flex ROM by 15 deg to inc ability to bend over. STG Duration 04/16/20 Coal Equipment Operator Goal (LTG) Pt will be able to bend over to put on/off shoes/socks and feed dog without inc pain. LTG Duration 05/17/20 Two Impairment strength Short Term Goal (STG) Pt will be indep with HEP STG Duration 04/16/20 Coal Equipment Operator Goal (LTG) Pt will have at least 4+/5 LE strength and 3/5 LPM to show improved core stability in order to be able to do typical daily activities without pain . LTG Duration 05/17/20 One Impairment Oswestry 19/50 Short Term Goal (STG) pt will imrpove score on oswestry to 13/50 to show improved functional ability. STG Duration 04/16/20 Fdc Goal (LTG) pt will imrpove score on oswestry to 4/50 to show improved functional ability. LTG Duration 05/17/20 Assessment Summary Assessment Pt reported being more comfortable after being set up in car and educated what to look for. Improved abilityt ot sit to stand with facilitiaton & with use of tband for abd during motion. Physical Therapy Plan Frequency and Duration Frequency of Treatment 2x/Week Duration of Treatment 2 months Plan of Care Start Date 03/16/20 Plan of Care End Date 05/17/20 Next Visit Focus/Plan Next Note Type Treatment Note Next Visit Plan review posture & hip hinge, work on wt acceptance into sit to stand, lunges, PNF for ant elevation/post depression, STM as needed
--- NOTE | 2020-04-06 17:58 | PT.OTN ---
Current Diagnoses Low back pain (04/06/20) Abnormal posture (04/06/20) Weakness (04/06/20) Wedge compression fracture of third lumbar vertebra, subsequent encounter for fracture with delayed healing (04/06/20) Wedge compression fracture of fourth lumbar vertebra, subsequent encounter for fracture with delayed healing (04/06/20) Physical Therapy Treatment Note PT-OP-A Visit Information Start: 03/15/20 17:39 Freq: Status: Active Protocol: Document 04/06/20 17:47 [facility] (Rec: 04/06/20 17:58 [facility] [id number]) Out-Patient Physical Therapy Visit Information Visit Information Visit Type Treatment Note Visit Note 01/10 Visit Start Time 16:53 Visit Stop Time 17:36 Total Visit Minutes 41 Visit Number 5 Number of HEAVY LINE TECHNICIAN Visits 0 PT-OP-B Current Condition Start: 03/15/20 17:39 Freq: Status: Active Protocol: Document 03/16/20 13:48 [facility] (Rec: 03/16/20 14:38 [facility] [id number]) Current Condition History of Current Condition Onset Date Oct Current Complaints L SI pain, L elbow History of Current Condition Pt reports she fell when getting out of the shower and turned to get her lotion and it felt like someone turned a light switch off and she fell on R hip onto the tile shower. This was at end of Oct . She finally got a MRI which showed compression fracture of L3. Pt reports biggest problem is bending down. She has about 1/10 pain all the time. Pt reprots sitting and getting up and that is excruiating and has to do maneuvers to get back to standing up again. Pt reports pain in L elbow started againa and feels like this is all connected. Pt reports she has had to compensate quite a bit and R knee is giving her a lot of pain and going to see someone about stem cells. Pt has been doing stretching and using hemp oil on her elbow to help. Pt reports she has to maneuver herself to get socks on and it takes aobut 10 min. Pt is able to walk 3-4 miles/ day. Pt has a EKG in her to check for any abnormalties. Pt reports pain had started to get better until 2 months ago when se pulled a weed out and pain increased significantly Treatment Goals Patient/Caregiver Goals be able to get up/down, be able to bend over, be able to put socks on easily, be able to get up/down for things like feeding dog without pain. Personal Factors Other Personal Factors That May Effect R knee pain, 3 recent cardiac Therapy/Recovery ablations, L SI pain, L3 lumbar compression fracture, L elbow pain, hx TIA, hx L hip replacement; hx of L4-5 disc injury w/pain down left leg in 70s and was put on bed rest for 3 months then had discectomy PT-OP-C Subjective Start: 03/15/20 17:39 Freq: Status: Active Protocol: Document 04/06/20 17:47 [facility] (Rec: 04/06/20 17:58 [facility] [id number]) OP-PT Subjective Patient Comments Patient Comments Pt reports she is so much better. From working on the exercises, her mm are just sore like they haven't worked in a while. She was in the car for a bit today and is a little stiff but not as painful. Patient Reported Progress Improving PT-OP-F Manual Assessment Start: 03/15/20 17:39 Freq: Status: Active Protocol: Document 03/16/20 13:48 [facility] (Rec: 03/16/20 14:38 [facility] [id number]) Manual Assessments Joint Mobility Assessment Joint Mobility Assessment L iliac crest higher, equal greater trochanters PT-OP-G Mobility & Gait Start: 03/15/20 17:39 Freq: Status: Active Protocol: Document 03/16/20 13:48 [facility] (Rec: 03/16/20 14:38 [facility] [id number]) OP Mobility Evaluation Bed Mobility Rolling signficiant ext w/rolling PT-OP-J Posture/Palpation/Skin Start: 03/15/20 17:39 Freq: Status: Active Protocol: Document 03/16/20 13:48 [facility] (Rec: 03/16/20 14:38 [facility] [id number]) Posture Evaluation Judah Postural Classification System Judah Postural Classifications Posterior/Posterior Lumbar Protective Mechanism Left AP 0 Lumbar Protective Mechanism Right AP 0 Lumbar Protective Mechanism Left PA 0 Lumbar Protective Mechanism Right PA 0 Comments Posture Comments sidebent L : R>L IR of femur, pelvis sheared R, fwd rounding of shoulders PT-OP-K Range of Motion Start: 03/15/20 17:39 Freq: Status: Active Protocol: Document 03/16/20 13:48 [facility] (Rec: 03/16/20 14:38 [facility] [id number]) Lumbar Spine Range of Motion Lumbar Spine Active Degrees Flexion 40 Extension 5 Rotation Left 41 Rotation Right 46 Lateral Flexion Left 12 Lateral Flexion Right 5 Comments signifacnt pain coming up out of flex, pain B SB PT-OP-M Strength Start: 03/15/20 17:39 Freq: Status: Active Protocol: Document 03/16/20 13:48 [facility] (Rec: 03/16/20 14:38 [facility] [id number]) Hip Strength Hip Manual Muscle Testing Right Flexion (L2) 4- Good- Extension (S1) 3+ Fair+ Abduction 4 Good External Rotation 4+ Good+ Internal Rotation 4+ Good+ Left Flexion (L2) 4- Good- Extension (S1) 3+ Fair+ Abduction 3+ Fair+ External Rotation 4- Good- Internal Rotation 4 Good Knee Strength Knee Manual Muscle Testing Right Flexion (S2) 5 Normal Extension (L3) 4 Good Left Flexion (S2) 5 Normal Extension (L3) 5 Normal PT-OP-Q Treatments Start: 03/15/20 17:39 Freq: Status: Active Protocol: Document 04/06/20 17:47 [facility] (Rec: 04/06/20 17:58 [facility] [id number]) Therapeutic Exercises Supine Exercises 2 Supine Exercise Name core series:flex, diagonal Side bilateral Reps/Minutes 30 sec ea Standing Exercises 4 Standing Exercise Name hip hinge Side bilateral Reps/Minutes 10 Comments w/yardstick on back Therapeutic Activity Therapeutic Activity 1 Name lifting training w/hip hinge & squat Manual Therapy Treatment Soft Tissue Mobilization 3 Body Location ES lower thoracic to lumbosacral Mobilization Type Rolling Intensity/Depth Moderate Body Position Sitting Comments w/flex 2 Body Location QL L & R Comments s/l and seated Neuro Re-Education Treatment Other Activities PNF Comments rhythmic initiation with ant elevation abdomenal facilitaiton Details cross body facilition through UE w/LE B PT-OP-T Assessment and Plan Start: 03/15/20 17:39 Freq: Status: Active Protocol: Document 04/06/20 17:47 [facility] (Rec: 04/06/20 17:58 [facility] [id number]) Physical Therapy Assessment Goals Four Short Term Goal (STG) Pt will be able to do sit<> stand with no greater than 2/ 10 pain. STG Duration 04/16/20 Usp Goal (LTG) pt willb e able to get up/down from ground to do typical gardening tasks without inc pain. LTG Duration 05/17/20 Three Impairment ROM Short Term Goal (STG) Pt will improve flex ROM by 15 deg to inc ability to bend over. STG Duration 04/16/20 Usp Goal (LTG) Pt will be able to bend over to put on/off shoes/socks and feed dog without inc pain. LTG Duration 05/17/20 Two Impairment strength Short Term Goal (STG) Pt will be indep with HEP STG Duration 04/16/20 Usp Goal (LTG) Pt will have at least 4+/5 LE strength and 3/5 LPM to show improved core stability in order to be able to do typical daily activities without pain . LTG Duration 05/17/20 One Impairment Oswestry 19/50 Short Term Goal (STG) pt will imrpove score on oswestry to 13/50 to show improved functional ability. STG Duration 04/16/20 Silk Brusher Goal (LTG) pt will imrpove score on oswestry to 4/50 to show improved functional ability. LTG Duration 05/17/20 Assessment Summary Assessment Pt had improved core initiation after manual facilitation w/chop pattern. She had a harder time with JESSE with LLE. She improved with hip hinge ability and squat for lifting with cueing. Physical Therapy Plan Frequency and Duration Frequency of Treatment 2x/Week Duration of Treatment 2 months Plan of Care Start Date 03/16/20 Plan of Care End Date 05/17/20 Next Visit Focus/Plan Next Note Type Treatment Note Next Visit Plan cont to work on ability to assume good posture & core stability
--- NOTE | 2020-04-08 18:08 | PT.OTN ---
Current Diagnoses Low back pain (04/08/20) Abnormal posture (04/08/20) Weakness (04/08/20) Wedge compression fracture of third lumbar vertebra, subsequent encounter for fracture with delayed healing (04/08/20) Wedge compression fracture of fourth lumbar vertebra, subsequent encounter for fracture with delayed healing (04/08/20) Physical Therapy Treatment Note PT-OP-A Visit Information Start: 03/15/20 17:39 Freq: Status: Active Protocol: Document 04/08/20 17:56 [facility] (Rec: 04/08/20 18:08 [facility] [id number]) Out-Patient Physical Therapy Visit Information Visit Information Visit Type Treatment Note Visit Note 02/10 Visit Start Time 09:48 Visit Stop Time 10:28 Total Visit Minutes 40 Visit Number 6 Number of BUTTON TUFTING MACHINE OPERATOR Visits 0 PT-OP-B Current Condition Start: 03/15/20 17:39 Freq: Status: Active Protocol: Document 03/16/20 13:48 [facility] (Rec: 03/16/20 14:38 [facility] [id number]) Current Condition History of Current Condition Onset Date Oct Current Complaints L SI pain, L elbow History of Current Condition Pt reports she fell when getting out of the shower and turned to get her lotion and it felt like someone turned a light switch off and she fell on R hip onto the tile shower. This was at end of Oct . She finally got a MRI which showed compression fracture of L3. Pt reports biggest problem is bending down. She has about 1/10 pain all the time. Pt reprots sitting and getting up and that is excruiating and has to do maneuvers to get back to standing up again. Pt reports pain in L elbow started againa and feels like this is all connected. Pt reports she has had to compensate quite a bit and R knee is giving her a lot of pain and going to see someone about stem cells. Pt has been doing stretching and using hemp oil on her elbow to help. Pt reports she has to maneuver herself to get socks on and it takes aobut 10 min. Pt is able to walk 3-4 miles/ day. Pt has a EKG in her to check for any abnormalties. Pt reports pain had started to get better until 2 months ago when [facility] pulled a weed out and pain increased significantly Treatment Goals Patient/Caregiver Goals be able to get up/down, be able to bend over, be able to put socks on easily, be able to get up/down for things like feeding dog without pain. Personal Factors Other Personal Factors That May Effect R knee pain, 3 recent cardiac Therapy/Recovery ablations, L SI pain, L3 lumbar compression fracture, L elbow pain, hx TIA, hx L hip replacement; hx of L4-5 disc injury w/pain down left leg in 70s and was put on bed rest for 3 months then had discectomy PT-OP-C Subjective Start: 03/15/20 17:39 Freq: Status: Active Protocol: Document 04/08/20 17:56 [facility] (Rec: 04/08/20 18:08 [facility] [id number]) OP-PT Subjective Patient Comments Patient Comments Pt reports she only has a dull ache recently. Patient Reported Progress Improving PT-OP-F Manual Assessment Start: 03/15/20 17:39 Freq: Status: Active Protocol: Document 03/16/20 13:48 [facility] (Rec: 03/16/20 14:38 [facility] [id number]) Manual Assessments Joint Mobility Assessment Joint Mobility Assessment L iliac crest higher, equal greater trochanters PT-OP-G Mobility & Gait Start: 03/15/20 17:39 Freq: Status: Active Protocol: Document 03/16/20 13:48 [facility] (Rec: 03/16/20 14:38 [facility] [id number]) OP Mobility Evaluation Bed Mobility Rolling signficiant ext w/rolling PT-OP-J Posture/Palpation/Skin Start: 03/15/20 17:39 Freq: Status: Active Protocol: Document 03/16/20 13:48 [facility] (Rec: 03/16/20 14:38 [facility] [id number]) Posture Evaluation Judah Postural Classification System Judah Postural Classifications Posterior/Posterior Lumbar Protective Mechanism Left AP 0 Lumbar Protective Mechanism Right AP 0 Lumbar Protective Mechanism Left PA 0 Lumbar Protective Mechanism Right PA 0 Comments Posture Comments sidebent L : R>L IR of femur, pelvis sheared R, fwd rounding of shoulders PT-OP-K Range of Motion Start: 03/15/20 17:39 Freq: Status: Active Protocol: Document 03/16/20 13:48 [facility] (Rec: 03/16/20 14:38 [facility] [id number]) Lumbar Spine Range of Motion Lumbar Spine Active Degrees Flexion 40 Extension 5 Rotation Left 41 Rotation Right 46 Lateral Flexion Left 12 Lateral Flexion Right 5 Comments signifacnt pain coming up out of flex, pain B SB PT-OP-M Strength Start: 03/15/20 17:39 Freq: Status: Active Protocol: Document 03/16/20 13:48 [facility] (Rec: 03/16/20 14:38 [facility] [id number]) Hip Strength Hip Manual Muscle Testing Right Flexion (L2) 4- Good- Extension (S1) 3+ Fair+ Abduction 4 Good External Rotation 4+ Good+ Internal Rotation 4+ Good+ Left Flexion (L2) 4- Good- Extension (S1) 3+ Fair+ Abduction 3+ Fair+ External Rotation 4- Good- Internal Rotation 4 Good Knee Strength Knee Manual Muscle Testing Right Flexion (S2) 5 Normal Extension (L3) 4 Good Left Flexion (S2) 5 Normal Extension (L3) 5 Normal PT-OP-Q Treatments Start: 03/15/20 17:39 Freq: Status: Active Protocol: Document 04/08/20 17:56 [facility] (Rec: 04/08/20 18:08 [facility] [id number]) Therapeutic Exercises Supine Exercises hip flex Supine Exercise Name SLR w/core Side bilateral Reps/Minutes 10 2 Supine Exercise Name scissor marching Side bilateral Reps/Minutes 10x2 Comments focus on core 1 Supine Exercise Name LTR Side bilateral Reps/Minutes 10 Comments focus on core Sidelying Exercises 1 Sidelying Exercise Name roll & reach Side left Reps/Minutes stopped after 4 d/t pain in L SI Standing Exercises 6 Standing Exercise Name B ER Side bilateral Equipment Used L1 Reps/Minutes 20 Comments focus on core and posture 5 Standing Exercise Name B ext Side bilateral Equipment Used L1 Reps/Minutes 15 Comments focus on core and posture Manual Therapy Treatment Soft Tissue Mobilization 2 Body Location QL& ES L & R Mobilization Type Rolling Intensity/Depth Moderate Body Position Sidelying Joint Mobilizations 4 Joint L hip Direction inf FM Grade II PT-OP-T Assessment and Plan Start: 03/15/20 17:39 Freq: Status: Active Protocol: Document 04/08/20 17:56 [facility] (Rec: 04/08/20 18:08 [facility] [id number]) Physical Therapy Assessment Goals Four Short Term Goal (STG) Pt will be able to do sit<> stand with no greater than 2/ 10 pain. STG Duration 04/16/20 Detention Goal (LTG) pt willb e able to get up/down from ground to do typical gardening tasks without inc pain. LTG Duration 05/17/20 Three Impairment ROM Short Term Goal (STG) Pt will improve flex ROM by 15 deg to inc ability to bend over. STG Duration 04/16/20 Detention Goal (LTG) Pt will be able to bend over to put on/off shoes/socks and feed dog without inc pain. LTG Duration 05/17/20 Two Impairment strength Short Term Goal (STG) Pt will be indep with HEP STG Duration 04/16/20 Shell Mold Bonding Machine Operator Goal (LTG) Pt will have at least 4+/5 LE strength and 3/5 LPM to show improved core stability in order to be able to do typical daily activities without pain . LTG Duration 05/17/20 One Impairment Oswestry 19/50 Short Term Goal (STG) pt will imrpove score on oswestry to 13/50 to show improved functional ability. STG Duration 04/16/20 Detention Goal (LTG) pt will imrpove score on oswestry to 4/50 to show improved functional ability. LTG Duration 05/17/20 Assessment Summary Assessment Pt is improving in core stability and was able to do more difficult exercises today . lack of ext of thoracic spine likely contributes to poor posture which pt notices when she is not in good posture, she has more pain. Cont to work on postural stability. Physical Therapy Plan Frequency and Duration Frequency of Treatment 2x/Week Duration of Treatment 2 months Plan of Care Start Date 03/16/20 Plan of Care End Date 05/17/20 Next Visit Focus/Plan Next Note Type Treatment Note Next Visit Plan cont to work on ability to assume good posture & core stability & ability to rotate
--- NOTE | 2020-04-13 11:41 | PT.OTN ---
Current Diagnoses Low back pain (04/13/20) Abnormal posture (04/13/20) Weakness (04/13/20) Wedge compression fracture of third lumbar vertebra, subsequent encounter for fracture with delayed healing (04/13/20) Wedge compression fracture of fourth lumbar vertebra, subsequent encounter for fracture with delayed healing (04/13/20) Physical Therapy Treatment Note PT-OP-A Visit Information Start: 03/15/20 17:39 Freq: Status: Active Protocol: Document 04/13/20 11:20 [facility] (Rec: 04/13/20 11:40 [facility] [id number]) Out-Patient Physical Therapy Visit Information Visit Information Visit Type Treatment Note Visit Note 03/12 Visit Start Time 09:02 Visit Stop Time 09:45 Total Visit Minutes 43 Visit Number 7 Number of MATHEMATICS INSTRUCTOR Visits 0 PT-OP-B Current Condition Start: 03/15/20 17:39 Freq: Status: Active Protocol: Document 03/16/20 13:48 [facility] (Rec: 03/16/20 14:38 [facility] [id number]) Current Condition History of Current Condition Onset Date Oct Current Complaints L SI pain, L elbow History of Current Condition Pt reports she fell when getting out of the shower and turned to get her lotion and it felt like someone turned a light switch off and she fell on R hip onto the tile shower. This was at end of Oct . She finally got a MRI which showed compression fracture of L3. Pt reports biggest problem is bending down. She has about 1/10 pain all the time. Pt reprots sitting and getting up and that is excruiating and has to do maneuvers to get back to standing up again. Pt reports pain in L elbow started againa and feels like this is all connected. Pt reports she has had to compensate quite a bit and R knee is giving her a lot of pain and going to see someone about stem cells. Pt has been doing stretching and using hemp oil on her elbow to help. Pt reports she has to maneuver herself to get socks on and it takes aobut 10 min. Pt is able to walk 3-4 miles/ day. Pt has a EKG in her to check for any abnormalties. Pt reports pain had started to get better until 2 months ago when se pulled a weed out and pain increased significantly Treatment Goals Patient/Caregiver Goals be able to get up/down, be able to bend over, be able to put socks on easily, be able to get up/down for things like feeding dog without pain. Personal Factors Other Personal Factors That May Effect R knee pain, 3 recent cardiac Therapy/Recovery ablations, L SI pain, L3 lumbar compression fracture, L elbow pain, hx TIA, hx L hip replacement; hx of L4-5 disc injury w/pain down left leg in 70s and was put on bed rest for 3 months then had discectomy PT-OP-C Subjective Start: 03/15/20 17:39 Freq: Status: Active Protocol: Document 04/13/20 11:20 [facility] (Rec: 04/13/20 11:40 [facility] [id number]) OP-PT Subjective Patient Comments Patient Comments Pt reports some elbow pain w/ shoulder exercises PT-OP-F Manual Assessment Start: 03/15/20 17:39 Freq: Status: Active Protocol: Document 03/16/20 13:48 [facility] (Rec: 03/16/20 14:38 [facility] [id number]) Manual Assessments Joint Mobility Assessment Joint Mobility Assessment L iliac crest higher, equal greater trochanters PT-OP-G Mobility & Gait Start: 03/15/20 17:39 Freq: Status: Active Protocol: Document 03/16/20 13:48 [facility] (Rec: 03/16/20 14:38 [facility] [id number]) OP Mobility Evaluation Bed Mobility Rolling signficiant ext w/rolling PT-OP-J Posture/Palpation/Skin Start: 03/15/20 17:39 Freq: Status: Active Protocol: Document 03/16/20 13:48 [facility] (Rec: 03/16/20 14:38 [facility] [id number]) Posture Evaluation Judah Postural Classification System Judah Postural Classifications Posterior/Posterior Lumbar Protective Mechanism Left AP 0 Lumbar Protective Mechanism Right AP 0 Lumbar Protective Mechanism Left PA 0 Lumbar Protective Mechanism Right PA 0 Comments Posture Comments sidebent L : R>L IR of femur, pelvis sheared R, fwd rounding of shoulders PT-OP-K Range of Motion Start: 03/15/20 17:39 Freq: Status: Active Protocol: Document 03/16/20 13:48 [facility] (Rec: 03/16/20 14:38 [facility] [id number]) Lumbar Spine Range of Motion Lumbar Spine Active Degrees Flexion 40 Extension 5 Rotation Left 41 Rotation Right 46 Lateral Flexion Left 12 Lateral Flexion Right 5 Comments signifacnt pain coming up out of flex, pain B SB PT-OP-M Strength Start: 03/15/20 17:39 Freq: Status: Active Protocol: Document 03/16/20 13:48 [facility] (Rec: 03/16/20 14:38 [facility] [id number]) Hip Strength Hip Manual Muscle Testing Right Flexion (L2) 4- Good- Extension (S1) 3+ Fair+ Abduction 4 Good External Rotation 4+ Good+ Internal Rotation 4+ Good+ Left Flexion (L2) 4- Good- Extension (S1) 3+ Fair+ Abduction 3+ Fair+ External Rotation 4- Good- Internal Rotation 4 Good Knee Strength Knee Manual Muscle Testing Right Flexion (S2) 5 Normal Extension (L3) 4 Good Left Flexion (S2) 5 Normal Extension (L3) 5 Normal PT-OP-Q Treatments Start: 03/15/20 17:39 Freq: Status: Active Protocol: Document 04/13/20 11:20 [facility] (Rec: 04/13/20 11:40 [facility] [id number]) Therapeutic Exercises Supine Exercises 1 Supine Exercise Name LTR Side bilateral Reps/Minutes 10 Comments focus on core Standing Exercises 5 Standing Exercise Name B ext then rows Side bilateral Equipment Used L1 Reps/Minutes 15 ea Comments focus on core and posture Manual Therapy Treatment Soft Tissue Mobilization 2 Body Location illiacus L Mobilization Type Sustained Pressure Intensity/Depth Moderate 1 Body Location rectus abdominus L to R Mobilization Type Sustained Pressure Comments w/LTR PT-OP-T Assessment and Plan Start: 03/15/20 17:39 Freq: Status: Active Protocol: Document 04/13/20 11:20 [facility] (Rec: 04/13/20 11:40 [facility] [id number]) Physical Therapy Assessment Goals Four Short Term Goal (STG) Pt will be able to do sit<> stand with no greater than 2/ 10 pain. STG Duration 04/16/20 Penitentiary Goal (LTG) pt willb e able to get up/down from ground to do typical gardening tasks without inc pain. LTG Duration 05/17/20 Three Impairment ROM Short Term Goal (STG) Pt will improve flex ROM by 15 deg to inc ability to bend over. STG Duration 04/16/20 Slat Basket Top Maker Goal (LTG) Pt will be able to bend over to put on/off shoes/socks and feed dog without inc pain. LTG Duration 05/17/20 Two Impairment strength Short Term Goal (STG) Pt will be indep with HEP STG Duration 04/16/20 Penitentiary Goal (LTG) Pt will have at least 4+/5 LE strength and 3/5 LPM to show improved core stability in order to be able to do typical daily activities without pain . LTG Duration 05/17/20 One Impairment Oswestry 19/50 Short Term Goal (STG) pt will imrpove score on oswestry to 13/50 to show improved functional ability. STG Duration 04/16/20 Penitentiary Goal (LTG) pt will imrpove score on oswestry to 4/50 to show improved functional ability. LTG Duration 05/17/20 Assessment Summary Assessment Pt cont to require cueing for posture with standing exercises and for core stability. She has tightness ant on L which may be pulling to innominate to create LBP. Improved movement with LTR after manual treatment. Physical Therapy Plan Frequency and Duration Frequency of Treatment 2x/Week Duration of Treatment 2 months Plan of Care Start Date 03/16/20 Plan of Care End Date 05/17/20 Next Visit Focus/Plan Next Note Type Treatment Note Next Visit Plan cont to work on ability to assume good posture & core stability & ability to rotate
--- NOTE | 2020-04-15 12:18 | PT.OTN ---
Current Diagnoses Low back pain (04/15/20) Abnormal posture (04/15/20) Weakness (04/15/20) Wedge compression fracture of third lumbar vertebra, subsequent encounter for fracture with delayed healing (04/15/20) Wedge compression fracture of fourth lumbar vertebra, subsequent encounter for fracture with delayed healing (04/15/20) Physical Therapy Treatment Note PT-OP-A Visit Information Start: 03/15/20 17:39 Freq: Status: Active Protocol: Document 04/15/20 10:45 [facility] (Rec: 04/15/20 12:18 [facility] [id number]) Out-Patient Physical Therapy Visit Information Visit Information Visit Type Treatment Note Visit Note 04/12 Visit Start Time 09:50 Visit Stop Time 10:29 Total Visit Minutes 39 Visit Number 8 Number of HOT BOX SPOTTER Visits 0 PT-OP-B Current Condition Start: 03/15/20 17:39 Freq: Status: Active Protocol: Document 03/16/20 13:48 [facility] (Rec: 03/16/20 14:38 [facility] [id number]) Current Condition History of Current Condition Onset Date Oct Current Complaints L SI pain, L elbow History of Current Condition Pt reports she fell when getting out of the shower and turned to get her lotion and it felt like someone turned a light switch off and she fell on R hip onto the tile shower. This was at end of Oct . She finally got a MRI which showed compression fracture of L3. Pt reports biggest problem is bending down. She has about 1/10 pain all the time. Pt reprots sitting and getting up and that is excruiating and has to do maneuvers to get back to standing up again. Pt reports pain in L elbow started againa and feels like this is all connected. Pt reports she has had to compensate quite a bit and R knee is giving her a lot of pain and going to see someone about stem cells. Pt has been doing stretching and using hemp oil on her elbow to help. Pt reports she has to maneuver herself to get socks on and it takes aobut 10 min. Pt is able to walk 3-4 miles/ day. Pt has a EKG in her to check for any abnormalties. Pt reports pain had started to get better until 2 months ago when se pulled a weed out and pain increased significantly Treatment Goals Patient/Caregiver Goals be able to get up/down, be able to bend over, be able to put socks on easily, be able to get up/down for things like feeding dog without pain. Personal Factors Other Personal Factors That May Effect R knee pain, 3 recent cardiac Therapy/Recovery ablations, L SI pain, L3 lumbar compression fracture, L elbow pain, hx TIA, hx L hip replacement; hx of L4-5 disc injury w/pain down left leg in 70s and was put on bed rest for 3 months then had discectomy PT-OP-C Subjective Start: 03/15/20 17:39 Freq: Status: Active Protocol: Document 04/15/20 10:45 [facility] (Rec: 04/15/20 12:18 [facility] [id number]) OP-PT Subjective Patient Comments Patient Comments Pt reports she felt much better in back after last session PT-OP-F Manual Assessment Start: 03/15/20 17:39 Freq: Status: Active Protocol: Document 03/16/20 13:48 [facility] (Rec: 03/16/20 14:38 [facility] [id number]) Manual Assessments Joint Mobility Assessment Joint Mobility Assessment L iliac crest higher, equal greater trochanters PT-OP-G Mobility & Gait Start: 03/15/20 17:39 Freq: Status: Active Protocol: Document 03/16/20 13:48 [facility] (Rec: 03/16/20 14:38 [facility] [id number]) OP Mobility Evaluation Bed Mobility Rolling signficiant ext w/rolling PT-OP-J Posture/Palpation/Skin Start: 03/15/20 17:39 Freq: Status: Active Protocol: Document 03/16/20 13:48 [facility] (Rec: 03/16/20 14:38 [facility] [id number]) Posture Evaluation Judah Postural Classification System Judah Postural Classifications Posterior/Posterior Lumbar Protective Mechanism Left AP 0 Lumbar Protective Mechanism Right AP 0 Lumbar Protective Mechanism Left PA 0 Lumbar Protective Mechanism Right PA 0 Comments Posture Comments sidebent L : R>L IR of femur, pelvis sheared R, fwd rounding of shoulders PT-OP-K Range of Motion Start: 03/15/20 17:39 Freq: Status: Active Protocol: Document 03/16/20 13:48 [facility] (Rec: 03/16/20 14:38 [facility] [id number]) Lumbar Spine Range of Motion Lumbar Spine Active Degrees Flexion 40 Extension 5 Rotation Left 41 Rotation Right 46 Lateral Flexion Left 12 Lateral Flexion Right 5 Comments signifacnt pain coming up out of flex, pain B SB PT-OP-M Strength Start: 03/15/20 17:39 Freq: Status: Active Protocol: Document 03/16/20 13:48 [facility] (Rec: 03/16/20 14:38 [facility] [id number]) Hip Strength Hip Manual Muscle Testing Right Flexion (L2) 4- Good- Extension (S1) 3+ Fair+ Abduction 4 Good External Rotation 4+ Good+ Internal Rotation 4+ Good+ Left Flexion (L2) 4- Good- Extension (S1) 3+ Fair+ Abduction 3+ Fair+ External Rotation 4- Good- Internal Rotation 4 Good Knee Strength Knee Manual Muscle Testing Right Flexion (S2) 5 Normal Extension (L3) 4 Good Left Flexion (S2) 5 Normal Extension (L3) 5 Normal PT-OP-Q Treatments Start: 03/15/20 17:39 Freq: Status: Active Protocol: Document 04/15/20 10:45 [facility] (Rec: 04/15/20 12:18 [facility] [id number]) Gait Training Gait Activity wt shifts Description fwd in mirror focus on wt acceptance B Manual Therapy Treatment Soft Tissue Mobilization 2 Body Location illiacus & inguinal ligament L Mobilization Type Sustained Pressure Intensity/Depth Moderate 1 Body Location rectus abdominus Mobilization Type Sustained Pressure Comments w/LTR PT-OP-T Assessment and Plan Start: 03/15/20 17:39 Freq: Status: Active Protocol: Document 04/15/20 10:45 [facility] (Rec: 04/15/20 12:18 [facility] [id number]) Physical Therapy Assessment Goals Four Short Term Goal (STG) Pt will be able to do sit<> stand with no greater than 2/ 10 pain. STG Duration 04/16/20 Mcfp Goal (LTG) pt willb e able to get up/down from ground to do typical gardening tasks without inc pain. LTG Duration 05/17/20 Three Impairment ROM Short Term Goal (STG) Pt will improve flex ROM by 15 deg to inc ability to bend over. STG Duration 04/16/20 Wholesale Diamond Broker Goal (LTG) Pt will be able to bend over to put on/off shoes/socks and feed dog without inc pain. LTG Duration 05/17/20 Two Impairment strength Short Term Goal (STG) Pt will be indep with HEP STG Duration 04/16/20 Mcfp Goal (LTG) Pt will have at least 4+/5 LE strength and 3/5 LPM to show improved core stability in order to be able to do typical daily activities without pain . LTG Duration 05/17/20 One Impairment Oswestry 19/50 Short Term Goal (STG) pt will imrpove score on oswestry to 13/50 to show improved functional ability. STG Duration 04/16/20 Mcfp Goal (LTG) pt will imrpove score on oswestry to 4/50 to show improved functional ability. LTG Duration 05/17/20 Assessment Summary Assessment Pt had improved L hip mobility after mnaul treatment and reported relief with soft tissue work. Improved wt shift after cueing and use of mirror Physical Therapy Plan Frequency and Duration Frequency of Treatment 2x/Week Duration of Treatment 2 months Plan of Care Start Date 03/16/20 Plan of Care End Date 05/17/20 Next Visit Focus/Plan Next Note Type Treatment Note Next Visit Plan cont to work on ability to assume good posture & core stability & ability to rotate
--- NOTE | 2020-04-20 10:54 | PT.OTN ---
Current Diagnoses Low back pain (04/20/20) Abnormal posture (04/20/20) Weakness (04/20/20) Wedge compression fracture of third lumbar vertebra, subsequent encounter for fracture with delayed healing (04/20/20) Wedge compression fracture of fourth lumbar vertebra, subsequent encounter for fracture with delayed healing (04/20/20) Physical Therapy Treatment Note PT-OP-A Visit Information Start: 03/15/20 17:39 Freq: Status: Active Protocol: Document 04/20/20 10:47 [facility] (Rec: 04/20/20 10:54 [facility] [id number]) Out-Patient Physical Therapy Visit Information Visit Information Visit Type Treatment Note Visit Note 05/13 Visit Start Time 09:50 Visit Stop Time 10:33 Total Visit Minutes 43 Visit Number 9 Number of CONCRETING SUPERVISOR Visits 0 PT-OP-B Current Condition Start: 03/15/20 17:39 Freq: Status: Active Protocol: Document 03/16/20 13:48 [facility] (Rec: 03/16/20 14:38 [facility] [id number]) Current Condition History of Current Condition Onset Date Oct Current Complaints L SI pain, L elbow History of Current Condition Pt reports she fell when getting out of the shower and turned to get her lotion and it felt like someone turned a light switch off and she fell on R hip onto the tile shower. This was at end of Oct . She finally got a MRI which showed compression fracture of L3. Pt reports biggest problem is bending down. She has about 1/10 pain all the time. Pt reprots sitting and getting up and that is excruiating and has to do maneuvers to get back to standing up again. Pt reports pain in L elbow started againa and feels like this is all connected. Pt reports she has had to compensate quite a bit and R knee is giving her a lot of pain and going to see someone about stem cells. Pt has been doing stretching and using hemp oil on her elbow to help. Pt reports she has to maneuver herself to get socks on and it takes aobut 10 min. Pt is able to walk 3-4 miles/ day. Pt has a EKG in her to check for any abnormalties. Pt reports pain had started to get better until 2 months ago when se pulled a weed out and pain increased significantly Treatment Goals Patient/Caregiver Goals be able to get up/down, be able to bend over, be able to put socks on easily, be able to get up/down for things like feeding dog without pain. Personal Factors Other Personal Factors That May Effect R knee pain, 3 recent cardiac Therapy/Recovery ablations, L SI pain, L3 lumbar compression fracture, L elbow pain, hx TIA, hx L hip replacement; hx of L4-5 disc injury w/pain down left leg in 70s and was put on bed rest for 3 months then had discectomy PT-OP-C Subjective Start: 03/15/20 17:39 Freq: Status: Active Protocol: Document 04/20/20 10:47 [facility] (Rec: 04/20/20 10:54 [facility] [id number]) OP-PT Subjective Patient Comments Patient Comments Pt reports her low backw as sore more around TL junction since Fiday. PT-OP-F Manual Assessment Start: 03/15/20 17:39 Freq: Status: Active Protocol: Document 03/16/20 13:48 [facility] (Rec: 03/16/20 14:38 [facility] [id number]) Manual Assessments Joint Mobility Assessment Joint Mobility Assessment L iliac crest higher, equal greater trochanters PT-OP-G Mobility & Gait Start: 03/15/20 17:39 Freq: Status: Active Protocol: Document 03/16/20 13:48 [facility] (Rec: 03/16/20 14:38 [facility] [id number]) OP Mobility Evaluation Bed Mobility Rolling signficiant ext w/rolling PT-OP-J Posture/Palpation/Skin Start: 03/15/20 17:39 Freq: Status: Active Protocol: Document 03/16/20 13:48 [facility] (Rec: 03/16/20 14:38 [facility] [id number]) Posture Evaluation Judah Postural Classification System Judah Postural Classifications Posterior/Posterior Lumbar Protective Mechanism Left AP 0 Lumbar Protective Mechanism Right AP 0 Lumbar Protective Mechanism Left PA 0 Lumbar Protective Mechanism Right PA 0 Comments Posture Comments sidebent L : R>L IR of femur, pelvis sheared R, fwd rounding of shoulders PT-OP-K Range of Motion Start: 03/15/20 17:39 Freq: Status: Active Protocol: Document 03/16/20 13:48 [facility] (Rec: 03/16/20 14:38 [facility] [id number]) Lumbar Spine Range of Motion Lumbar Spine Active Degrees Flexion 40 Extension 5 Rotation Left 41 Rotation Right 46 Lateral Flexion Left 12 Lateral Flexion Right 5 Comments signifacnt pain coming up out of flex, pain B SB PT-OP-M Strength Start: 03/15/20 17:39 Freq: Status: Active Protocol: Document 03/16/20 13:48 [facility] (Rec: 03/16/20 14:38 [facility] [id number]) Hip Strength Hip Manual Muscle Testing Right Flexion (L2) 4- Good- Extension (S1) 3+ Fair+ Abduction 4 Good External Rotation 4+ Good+ Internal Rotation 4+ Good+ Left Flexion (L2) 4- Good- Extension (S1) 3+ Fair+ Abduction 3+ Fair+ External Rotation 4- Good- Internal Rotation 4 Good Knee Strength Knee Manual Muscle Testing Right Flexion (S2) 5 Normal Extension (L3) 4 Good Left Flexion (S2) 5 Normal Extension (L3) 5 Normal PT-OP-Q Treatments Start: 03/15/20 17:39 Freq: Status: Active Protocol: Document 04/20/20 10:47 [facility] (Rec: 04/20/20 10:54 [facility] [id number]) Gym Equipment Sport Cord fwd walk Cord/Resistance green Reps/Duration 10 Comments focus o push off Therapeutic Exercises Sidelying Exercises 1 Sidelying Exercise Name roll and reach Side left Reps/Minutes 10 Gait Training Gait Activity walking Comments 1. in mirror with focus on push off 2. in hallway focus on push off 3. resisted walking with dowel wt shifts Description fwd in mirror focus on wt acceptance B Manual Therapy Treatment Soft Tissue Mobilization 3 Body Location rhomboids L Mobilization Type Rolling,Strumming Joint Mobilizations 4 Joint T5-9 Direction UPA L & PA & trasverse R w/rot Grade II PT-OP-T Assessment and Plan Start: 03/15/20 17:39 Freq: Status: Active Protocol: Document 04/20/20 10:47 [facility] (Rec: 04/20/20 10:54 [facility] [id number]) Physical Therapy Assessment Goals Four Short Term Goal (STG) Pt will be able to do sit<> stand with no greater than 2/ 10 pain. STG Duration 04/16/20 Industrial Machinery Mechanic Goal (LTG) pt willb e able to get up/down from ground to do typical gardening tasks without inc pain. LTG Duration 05/17/20 Three Impairment ROM Short Term Goal (STG) Pt will improve flex ROM by 15 deg to inc ability to bend over. STG Duration 04/16/20 Longterm Goal (LTG) Pt will be able to bend over to put on/off shoes/socks and feed dog without inc pain. LTG Duration 05/17/20 Two Impairment strength Short Term Goal (STG) Pt will be indep with HEP STG Duration 04/16/20 Longterm Goal (LTG) Pt will have at least 4+/5 LE strength and 3/5 LPM to show improved core stability in order to be able to do typical daily activities without pain . LTG Duration 05/17/20 One Impairment Oswestry 19/50 Short Term Goal (STG) pt will imrpove score on oswestry to 13/50 to show improved functional ability. STG Duration 04/16/20 Industrial Machinery Mechanic Goal (LTG) pt will imrpove score on oswestry to 4/50 to show improved functional ability. LTG Duration 05/17/20 Assessment Summary Assessment Pt required cueing to avoid ext at TL junction during gait and when working on posture. She was able to improve glute activiation with gait with cueing and faciliation with resisted walking. She has limited tspine mobility which is likely why she has excessive TL junction ext. After manual treatment to thoracic, pt was able to sit up in better positioning. Physical Therapy Plan Next Visit Focus/Plan Next Note Type Progress Note Next Visit Plan check progress, cont to work on ability to assume good posture & core stability & ability to rotate & work on tspine mobility & gait
--- NOTE | 2020-04-22 12:44 | PT.OTN ---
Current Diagnoses Low back pain (04/22/20) Abnormal posture (04/22/20) Weakness (04/22/20) Wedge compression fracture of third lumbar vertebra, subsequent encounter for fracture with delayed healing (04/22/20) Wedge compression fracture of fourth lumbar vertebra, subsequent encounter for fracture with delayed healing (04/22/20) Physical Therapy Treatment Note PT-OP-A Visit Information Start: 03/15/20 17:39 Freq: Status: Active Protocol: Document 04/22/20 10:38 [facility] (Rec: 04/22/20 12:44 [facility] [id number]) Out-Patient Physical Therapy Visit Information Visit Information Visit Type Treatment Note Visit Note 09/12 Visit Start Time 09:48 Visit Stop Time 10:27 Total Visit Minutes 39 Visit Number 10 Number of LABEL MACHINE OPERATOR Visits 0 PT-OP-B Current Condition Start: 03/15/20 17:39 Freq: Status: Active Protocol: Document 03/16/20 13:48 [facility] (Rec: 03/16/20 14:38 [facility] [id number]) Current Condition History of Current Condition Onset Date Oct Current Complaints L SI pain, L elbow History of Current Condition Pt reports she fell when getting out of the shower and turned to get her lotion and it felt like someone turned a light switch off and she fell on R hip onto the tile shower. This was at end of Oct . She finally got a MRI which showed compression fracture of L3. Pt reports biggest problem is bending down. She has about 1/10 pain all the time. Pt reprots sitting and getting up and that is excruiating and has to do maneuvers to get back to standing up again. Pt reports pain in L elbow started againa and feels like this is all connected. Pt reports she has had to compensate quite a bit and R knee is giving her a lot of pain and going to see someone about stem cells. Pt has been doing stretching and using hemp oil on her elbow to help. Pt reports she has to maneuver herself to get socks on and it takes aobut 10 min. Pt is able to walk 3-4 miles/ day. Pt has a EKG in her to check for any abnormalties. Pt reports pain had started to get better until 2 months ago when se pulled a weed out and pain increased significantly Treatment Goals Patient/Caregiver Goals be able to get up/down, be able to bend over, be able to put socks on easily, be able to get up/down for things like feeding dog without pain. Personal Factors Other Personal Factors That May Effect R knee pain, 3 recent cardiac Therapy/Recovery ablations, L SI pain, L3 lumbar compression fracture, L elbow pain, hx TIA, hx L hip replacement; hx of L4-5 disc injury w/pain down left leg in 70s and was put on bed rest for 3 months then had discectomy PT-OP-C Subjective Start: 03/15/20 17:39 Freq: Status: Active Protocol: Document 04/22/20 10:38 [facility] (Rec: 04/22/20 12:44 [facility] [id number]) OP-PT Subjective Patient Comments Patient Comments Pt reprots she was doing muchb valdo after last session Patient Reported Progress Improving PT-OP-F Manual Assessment Start: 03/15/20 17:39 Freq: Status: Active Protocol: Document 03/16/20 13:48 [facility] (Rec: 03/16/20 14:38 [facility] [id number]) Manual Assessments Joint Mobility Assessment Joint Mobility Assessment L iliac crest higher, equal greater trochanters PT-OP-G Mobility & Gait Start: 03/15/20 17:39 Freq: Status: Active Protocol: Document 03/16/20 13:48 [facility] (Rec: 03/16/20 14:38 [facility] [id number]) OP Mobility Evaluation Bed Mobility Rolling signficiant ext w/rolling PT-OP-J Posture/Palpation/Skin Start: 03/15/20 17:39 Freq: Status: Active Protocol: Document 03/16/20 13:48 [facility] (Rec: 03/16/20 14:38 [facility] [id number]) Posture Evaluation Judah Postural Classification System Judah Postural Classifications Posterior/Posterior Lumbar Protective Mechanism Left AP 0 Lumbar Protective Mechanism Right AP 0 Lumbar Protective Mechanism Left PA 0 Lumbar Protective Mechanism Right PA 0 Comments Posture Comments sidebent L : R>L IR of femur, pelvis sheared R, fwd rounding of shoulders PT-OP-K Range of Motion Start: 03/15/20 17:39 Freq: Status: Active Protocol: Document 03/16/20 13:48 [facility] (Rec: 03/16/20 14:38 [facility] [id number]) Lumbar Spine Range of Motion Lumbar Spine Active Degrees Flexion 40 Extension 5 Rotation Left 41 Rotation Right 46 Lateral Flexion Left 12 Lateral Flexion Right 5 Comments signifacnt pain coming up out of flex, pain B SB PT-OP-M Strength Start: 03/15/20 17:39 Freq: Status: Active Protocol: Document 03/16/20 13:48 [facility] (Rec: 03/16/20 14:38 [facility] [id number]) Hip Strength Hip Manual Muscle Testing Right Flexion (L2) 4- Good- Extension (S1) 3+ Fair+ Abduction 4 Good External Rotation 4+ Good+ Internal Rotation 4+ Good+ Left Flexion (L2) 4- Good- Extension (S1) 3+ Fair+ Abduction 3+ Fair+ External Rotation 4- Good- Internal Rotation 4 Good Knee Strength Knee Manual Muscle Testing Right Flexion (S2) 5 Normal Extension (L3) 4 Good Left Flexion (S2) 5 Normal Extension (L3) 5 Normal PT-OP-Q Treatments Start: 03/15/20 17:39 Freq: Status: Active Protocol: Document 04/22/20 10:38 [facility] (Rec: 04/22/20 12:44 [facility] [id number]) Manual Therapy Treatment Soft Tissue Mobilization 3 Body Location thoracolumbar paraspinals Mobilization Type Rolling,Strumming 2 Body Location illiacus & inguinal ligament L Mobilization Type Sustained Pressure Intensity/Depth Moderate 1 Body Location rectus abdominus Mobilization Type Sustained Pressure Comments w/LTR Joint Mobilizations 4 Joint T5-9 Direction UPA L & PA & trasverse R w/rot Grade II Neuro Re-Education Treatment Other Activities mass flex Details rhythmic initiation, concentrics abdomenal facilitaiton Details cross body facilition through UE w/LE B PT-OP-T Assessment and Plan Start: 03/15/20 17:39 Freq: Status: Active Protocol: Document 04/22/20 10:38 [facility] (Rec: 04/22/20 12:44 [facility] [id number]) Physical Therapy Assessment Goals Four Short Term Goal (STG) Pt will be able to do sit<> stand with no greater than 2/ 10 pain. STG Duration achieved Safety Investigator Goal (LTG) pt willb e able to get up/down from ground to do typical gardening tasks without inc pain. LTG Duration 05/17/20 Three Impairment ROM Short Term Goal (STG) Pt will improve flex ROM by 15 deg to inc ability to bend over. STG Duration achieved able to flex fwd Safety Investigator Goal (LTG) Pt will be able to bend over to put on/off shoes/socks and feed dog without inc pain. LTG Duration 05/17/20 Two Impairment strength Short Term Goal (STG) Pt will be indep with HEP STG Duration achieved Safety Investigator Goal (LTG) Pt will have at least 4+/5 LE strength and 3/5 LPM to show improved core stability in order to be able to do typical daily activities without pain . LTG Duration 05/17/20 One Impairment Oswestry 19/50 Short Term Goal (STG) pt will imrpove score on oswestry to 13/50 to show improved functional ability. STG Duration 04/16/20 Safety Investigator Goal (LTG) pt will imrpove score on oswestry to 4/50 to show improved functional ability. LTG Duration 05/17/20 Assessment Summary Assessment Pt is making excellent progress w/pain and fumctional mobility. She is now less limited by her back pain and is able to achieve more proper posture with less cueing. Physical Therapy Plan Frequency and Duration Frequency of Treatment 2x/Week Duration of Treatment 2 months Plan of Care Start Date 03/16/20 Plan of Care End Date 05/17/20 Next Visit Focus/Plan Next Note Type Treatment Note Next Visit Plan cont to work on ability to assume good posture & core stability & ability to rotate
--- NOTE | 2020-04-27 12:14 | PT.OTN ---
Current Diagnoses Low back pain (04/27/20) Abnormal posture (04/27/20) Weakness (04/27/20) Wedge compression fracture of third lumbar vertebra, subsequent encounter for fracture with delayed healing (04/27/20) Wedge compression fracture of fourth lumbar vertebra, subsequent encounter for fracture with delayed healing (04/27/20) Physical Therapy Treatment Note PT-OP-A Visit Information Start: 03/15/20 17:39 Freq: Status: Active Protocol: Document 04/27/20 09:44 [facility] (Rec: 04/27/20 12:14 [facility] [id number]) Out-Patient Physical Therapy Visit Information Visit Information Visit Type Treatment Note Visit Note 10/13 Visit Start Time 09:47 Visit Stop Time 10:26 Total Visit Minutes 39 Visit Number 11 Number of FLAVOR ROOM WORKER Visits 0 PT-OP-B Current Condition Start: 03/15/20 17:39 Freq: Status: Active Protocol: Document 03/16/20 13:48 [facility] (Rec: 03/16/20 14:38 [facility] [id number]) Current Condition History of Current Condition Onset Date Oct Current Complaints L SI pain, L elbow History of Current Condition Pt reports she fell when getting out of the shower and turned to get her lotion and it felt like someone turned a light switch off and she fell on R hip onto the tile shower. This was at end of Oct . She finally got a MRI which showed compression fracture of L3. Pt reports biggest problem is bending down. She has about 1/10 pain all the time. Pt reprots sitting and getting up and that is excruiating and has to do maneuvers to get back to standing up again. Pt reports pain in L elbow started againa and feels like this is all connected. Pt reports she has had to compensate quite a bit and R knee is giving her a lot of pain and going to see someone about stem cells. Pt has been doing stretching and using hemp oil on her elbow to help. Pt reports she has to maneuver herself to get socks on and it takes aobut 10 min. Pt is able to walk 3-4 miles/ day. Pt has a EKG in her to check for any abnormalties. Pt reports pain had started to get better until 2 months ago when [facility] pulled a weed out and pain increased significantly Treatment Goals Patient/Caregiver Goals be able to get up/down, be able to bend over, be able to put socks on easily, be able to get up/down for things like feeding dog without pain. Personal Factors Other Personal Factors That May Effect R knee pain, 3 recent cardiac Therapy/Recovery ablations, L SI pain, L3 lumbar compression fracture, L elbow pain, hx TIA, hx L hip replacement; hx of L4-5 disc injury w/pain down left leg in 70s and was put on bed rest for 3 months then had discectomy PT-OP-C Subjective Start: 03/15/20 17:39 Freq: Status: Active Protocol: Document 04/27/20 09:44 [facility] (Rec: 04/27/20 12:14 [facility] [id number]) OP-PT Subjective Patient Comments Patient Comments Pt reports having no pain for 3 days. PT-OP-F Manual Assessment Start: 03/15/20 17:39 Freq: Status: Active Protocol: Document 03/16/20 13:48 [facility] (Rec: 03/16/20 14:38 [facility] [id number]) Manual Assessments Joint Mobility Assessment Joint Mobility Assessment L iliac crest higher, equal greater trochanters PT-OP-G Mobility & Gait Start: 03/15/20 17:39 Freq: Status: Active Protocol: Document 03/16/20 13:48 [facility] (Rec: 03/16/20 14:38 [facility] [id number]) OP Mobility Evaluation Bed Mobility Rolling signficiant ext w/rolling PT-OP-J Posture/Palpation/Skin Start: 03/15/20 17:39 Freq: Status: Active Protocol: Document 03/16/20 13:48 [facility] (Rec: 03/16/20 14:38 [facility] [id number]) Posture Evaluation Judah Postural Classification System Judah Postural Classifications Posterior/Posterior Lumbar Protective Mechanism Left AP 0 Lumbar Protective Mechanism Right AP 0 Lumbar Protective Mechanism Left PA 0 Lumbar Protective Mechanism Right PA 0 Comments Posture Comments sidebent L : R>L IR of femur, pelvis sheared R, fwd rounding of shoulders PT-OP-K Range of Motion Start: 03/15/20 17:39 Freq: Status: Active Protocol: Document 03/16/20 13:48 [facility] (Rec: 03/16/20 14:38 [facility] [id number]) Lumbar Spine Range of Motion Lumbar Spine Active Degrees Flexion 40 Extension 5 Rotation Left 41 Rotation Right 46 Lateral Flexion Left 12 Lateral Flexion Right 5 Comments signifacnt pain coming up out of flex, pain B SB PT-OP-M Strength Start: 03/15/20 17:39 Freq: Status: Active Protocol: Document 03/16/20 13:48 [facility] (Rec: 03/16/20 14:38 [facility] [id number]) Hip Strength Hip Manual Muscle Testing Right Flexion (L2) 4- Good- Extension (S1) 3+ Fair+ Abduction 4 Good External Rotation 4+ Good+ Internal Rotation 4+ Good+ Left Flexion (L2) 4- Good- Extension (S1) 3+ Fair+ Abduction 3+ Fair+ External Rotation 4- Good- Internal Rotation 4 Good Knee Strength Knee Manual Muscle Testing Right Flexion (S2) 5 Normal Extension (L3) 4 Good Left Flexion (S2) 5 Normal Extension (L3) 5 Normal PT-OP-Q Treatments Start: 03/15/20 17:39 Freq: Status: Active Protocol: Document 04/27/20 09:44 [facility] (Rec: 04/27/20 12:14 [facility] [id number]) Therapeutic Exercises Supine Exercises 2 Supine Exercise Name 3 in foam roll:roll side/side, flex, Habd, abd Side bilateral Reps/Minutes 15 ea Other Exercises 5 Other Exercise Name thread the needle Side bilateral Reps/Minutes 10 4 Other Exercise Name cat camel & tail wags Reps/Minutes 5 ea b 3 Other Exercise Name jovanna pose fwd & to sides B Reps/Minutes 30 sec ea Manual Therapy Treatment Joint Mobilizations 4 Joint T5-9 Direction UPA L & PA & trasverse R w/rot Grade II PT-OP-T Assessment and Plan Start: 03/15/20 17:39 Freq: Status: Active Protocol: Document 04/27/20 09:44 [facility] (Rec: 04/27/20 12:14 [facility] [id number]) Physical Therapy Assessment Goals Four Short Term Goal (STG) Pt will be able to do sit<> stand with no greater than 2/ 10 pain. STG Duration achieved Sketch Artist Goal (LTG) pt willb e able to get up/down from ground to do typical gardening tasks without inc pain. LTG Duration 05/17/20 Three Impairment ROM Short Term Goal (STG) Pt will improve flex ROM by 15 deg to inc ability to bend over. STG Duration achieved able to flex fwd Intermediate Goal (LTG) Pt will be able to bend over to put on/off shoes/socks and feed dog without inc pain. LTG Duration 05/17/20 Two Impairment strength Short Term Goal (STG) Pt will be indep with HEP STG Duration achieved Sketch Artist Goal (LTG) Pt will have at least 4+/5 LE strength and 3/5 LPM to show improved core stability in order to be able to do typical daily activities without pain . LTG Duration 05/17/20 One Impairment Oswestry 19/50 Short Term Goal (STG) pt will imrpove score on oswestry to 13/50 to show improved functional ability. STG Duration 04/16/20 Intermediate Goal (LTG) pt will imrpove score on oswestry to 4/50 to show improved functional ability. LTG Duration 05/17/20 Assessment Summary Assessment Pt cont to improve with funcitonal ability and posture . She still has some lat shearing of torso and rotation but is imprvoing with overall upright posture. She improves with manual treamtne. WOrked on thoraicc mobility and lumbar stretching exercises today with no inc pain Physical Therapy Plan Next Visit Focus/Plan Next Note Type Treatment Note Next Visit Plan cont to work on thoracic mboility to dec need for TL junction ext for upright positioning, check oswestry
--- NOTE | 2020-05-04 17:55 | PT.OTN ---
Current Diagnoses Low back pain (05/04/20) Abnormal posture (05/04/20) Weakness (05/04/20) Wedge compression fracture of third lumbar vertebra, subsequent encounter for fracture with delayed healing (05/04/20) Wedge compression fracture of fourth lumbar vertebra, subsequent encounter for fracture with delayed healing (05/04/20) Physical Therapy Treatment Note PT-OP-A Visit Information Start: 03/15/20 17:39 Freq: Status: Active Protocol: Document 05/04/20 17:52 [facility] (Rec: 05/04/20 17:55 [facility] [id number]) Out-Patient Physical Therapy Visit Information Visit Information Visit Type Treatment Note Visit Start Time 09:50 Visit Stop Time 10:30 Total Visit Minutes 40 Visit Number 12 Number of SLABBING MACHINE OPERATOR Visits 0 PT-OP-B Current Condition Start: 03/15/20 17:39 Freq: Status: Active Protocol: Document 03/16/20 13:48 [facility] (Rec: 03/16/20 14:38 [facility] [id number]) Current Condition History of Current Condition Onset Date Oct Current Complaints L SI pain, L elbow History of Current Condition Pt reports she fell when getting out of the shower and turned to get her lotion and it felt like someone turned a light switch off and she fell on R hip onto the tile shower. This was at end of Oct . She finally got a MRI which showed compression fracture of L3. Pt reports biggest problem is bending down. She has about 1/10 pain all the time. Pt reprots sitting and getting up and that is excruiating and has to do maneuvers to get back to standing up again. Pt reports pain in L elbow started againa and feels like this is all connected. Pt reports she has had to compensate quite a bit and R knee is giving her a lot of pain and going to see someone about stem cells. Pt has been doing stretching and using hemp oil on her elbow to help. Pt reports she has to maneuver herself to get socks on and it takes aobut 10 min. Pt is able to walk 3-4 miles/ day. Pt has a EKG in her to check for any abnormalties. Pt reports pain had started to get better until 2 months ago when seh pulled a weed out and pain increased significantly Treatment Goals Patient/Caregiver Goals be able to get up/down, be able to bend over, be able to put socks on easily, be able to get up/down for things like feeding dog without pain. Personal Factors Other Personal Factors That May Effect R knee pain, 3 recent cardiac Therapy/Recovery ablations, L SI pain, L3 lumbar compression fracture, L elbow pain, hx TIA, hx L hip replacement; hx of L4-5 disc injury w/pain down left leg in 70s and was put on bed rest for 3 months then had discectomy PT-OP-C Subjective Start: 03/15/20 17:39 Freq: Status: Active Protocol: Document 05/04/20 17:52 [facility] (Rec: 05/04/20 17:55 [facility] [id number]) OP-PT Subjective Patient Comments Patient Comments pt reports main trouble is getting up from car after sitting for drive 30 min. Has trouble initially straightening up PT-OP-F Manual Assessment Start: 03/15/20 17:39 Freq: Status: Active Protocol: Document 03/16/20 13:48 [facility] (Rec: 03/16/20 14:38 [facility] [id number]) Manual Assessments Joint Mobility Assessment Joint Mobility Assessment L iliac crest higher, equal greater trochanters PT-OP-G Mobility & Gait Start: 03/15/20 17:39 Freq: Status: Active Protocol: Document 03/16/20 13:48 [facility] (Rec: 03/16/20 14:38 [facility] [id number]) OP Mobility Evaluation Bed Mobility Rolling signficiant ext w/rolling PT-OP-J Posture/Palpation/Skin Start: 03/15/20 17:39 Freq: Status: Active Protocol: Document 03/16/20 13:48 [facility] (Rec: 03/16/20 14:38 [facility] [id number]) Posture Evaluation Judah Postural Classification System Judah Postural Classifications Posterior/Posterior Lumbar Protective Mechanism Left AP 0 Lumbar Protective Mechanism Right AP 0 Lumbar Protective Mechanism Left PA 0 Lumbar Protective Mechanism Right PA 0 Comments Posture Comments sidebent L : R>L IR of femur, pelvis sheared R, fwd rounding of shoulders PT-OP-K Range of Motion Start: 03/15/20 17:39 Freq: Status: Active Protocol: Document 03/16/20 13:48 [facility] (Rec: 03/16/20 14:38 [facility] [id number]) Lumbar Spine Range of Motion Lumbar Spine Active Degrees Flexion 40 Extension 5 Rotation Left 41 Rotation Right 46 Lateral Flexion Left 12 Lateral Flexion Right 5 Comments signifacnt pain coming up out of flex, pain B SB PT-OP-M Strength Start: 03/15/20 17:39 Freq: Status: Active Protocol: Document 03/16/20 13:48 [facility] (Rec: 03/16/20 14:38 [facility] [id number]) Hip Strength Hip Manual Muscle Testing Right Flexion (L2) 4- Good- Extension (S1) 3+ Fair+ Abduction 4 Good External Rotation 4+ Good+ Internal Rotation 4+ Good+ Left Flexion (L2) 4- Good- Extension (S1) 3+ Fair+ Abduction 3+ Fair+ External Rotation 4- Good- Internal Rotation 4 Good Knee Strength Knee Manual Muscle Testing Right Flexion (S2) 5 Normal Extension (L3) 4 Good Left Flexion (S2) 5 Normal Extension (L3) 5 Normal PT-OP-Q Treatments Start: 03/15/20 17:39 Freq: Status: Active Protocol: Document 05/04/20 17:52 [facility] (Rec: 05/04/20 17:55 [facility] [id number]) Therapeutic Exercises Supine Exercises 2 Supine Exercise Name bridge w/10 sec hold progressed to bridge with march Side bilateral Sitting Exercises 1 Sitting Exercise Name hip hinge w/yard stick Standing Exercises 6 Standing Exercise Name sit to stand with focus on glutes 5 Standing Exercise Name mini squat Comments 1. attempted at counter 20 reps but difficulty w/ form 2. over chair improv 4 Standing Exercise Name hip hinge Side bilateral Reps/Minutes 10 PT-OP-T Assessment and Plan Start: 03/15/20 17:39 Freq: Status: Active Protocol: Document 05/04/20 17:52 [facility] (Rec: 05/04/20 17:55 [facility] [id number]) Physical Therapy Assessment Goals Four Short Term Goal (STG) Pt will be able to do sit<> stand with no greater than 2/ 10 pain. STG Duration achieved Trimming Operator Goal (LTG) pt willb e able to get up/down from ground to do typical gardening tasks without inc pain. LTG Duration 05/17/20 Three Impairment ROM Short Term Goal (STG) Pt will improve flex ROM by 15 deg to inc ability to bend over. STG Duration achieved able to flex fwd Trimming Operator Goal (LTG) Pt will be able to bend over to put on/off shoes/socks and feed dog without inc pain. LTG Duration 05/17/20 Two Impairment strength Short Term Goal (STG) Pt will be indep with HEP STG Duration achieved Trimming Operator Goal (LTG) Pt will have at least 4+/5 LE strength and 3/5 LPM to show improved core stability in order to be able to do typical daily activities without pain . LTG Duration 05/17/20 One Impairment Oswestry 19/50 Short Term Goal (STG) pt will imrpove score on oswestry to 13/50 to show improved functional ability. STG Duration 04/16/20 Intermediate Goal (LTG) pt will imrpove score on oswestry to 4/50 to show improved functional ability. LTG Duration 05/17/20 Assessment Summary Assessment R knee pain liekly contributes to difficulty with standing from car as she often offloads R side to stand creating some lumbar shear and ext. Improved abilityt to mini squat after significant work. Physical Therapy Plan Frequency and Duration Frequency of Treatment 2x/Week Duration of Treatment 2 months Plan of Care Start Date 03/16/20 Plan of Care End Date 05/17/20 Next Visit Focus/Plan Next Note Type Treatment Note Next Visit Plan cont to work on thoracic mboility to dec need for TL junction ext for upright positioning, check oswestry
--- NOTE | 2020-05-11 11:37 | PT.OTN ---
Current Diagnoses Low back pain (05/11/20) Abnormal posture (05/11/20) Weakness (05/11/20) Wedge compression fracture of third lumbar vertebra, subsequent encounter for fracture with delayed healing (05/11/20) Wedge compression fracture of fourth lumbar vertebra, subsequent encounter for fracture with delayed healing (05/11/20) Physical Therapy Treatment Note PT-OP-A Visit Information Start: 03/15/20 17:39 Freq: Status: Active Protocol: Document 05/11/20 09:45 [facility] (Rec: 05/11/20 10:35 [facility] [id number]) Out-Patient Physical Therapy Visit Information Visit Information Visit Type Discharge Summary Visit Start Time 09:45 Visit Stop Time 10:28 Total Visit Minutes 43 Visit Number 13 Number of ELEMENTARY SPANISH TEACHER Visits 0 PT-OP-B Current Condition Start: 03/15/20 17:39 Freq: Status: Active Protocol: Document 03/16/20 13:48 [facility] (Rec: 03/16/20 14:38 [facility] [id number]) Current Condition History of Current Condition Onset Date Oct Current Complaints L SI pain, L elbow History of Current Condition Pt reports she fell when getting out of the shower and turned to get her lotion and it felt like someone turned a light switch off and she fell on R hip onto the tile shower. This was at end of Oct . She finally got a MRI which showed compression fracture of L3. Pt reports biggest problem is bending down. She has about 1/10 pain all the time. Pt reprots sitting and getting up and that is excruiating and has to do maneuvers to get back to standing up again. Pt reports pain in L elbow started againa and feels like this is all connected. Pt reports she has had to compensate quite a bit and R knee is giving her a lot of pain and going to see someone about stem cells. Pt has been doing stretching and using hemp oil on her elbow to help. Pt reports she has to maneuver herself to get socks on and it takes aobut 10 min. Pt is able to walk 3-4 miles/ day. Pt has a EKG in her to check for any abnormalties. Pt reports pain had started to get better until 2 months ago when se pulled a weed out and pain increased significantly Treatment Goals Patient/Caregiver Goals be able to get up/down, be able to bend over, be able to put socks on easily, be able to get up/down for things like feeding dog without pain. Personal Factors Other Personal Factors That May Effect R knee pain, 3 recent cardiac Therapy/Recovery ablations, L SI pain, L3 lumbar compression fracture, L elbow pain, hx TIA, hx L hip replacement; hx of L4-5 disc injury w/pain down left leg in 70s and was put on bed rest for 3 months then had discectomy PT-OP-C Subjective Start: 03/15/20 17:39 Freq: Status: Active Protocol: Document 05/11/20 09:45 [facility] (Rec: 05/11/20 10:35 [facility] [id number]) OP-PT Subjective Patient Comments Patient Comments Pt reports she feels ready for dc. Pt feels like seh can use her stretches to help her pain Patient Reported Progress Improving PT-OP-F Manual Assessment Start: 03/15/20 17:39 Freq: Status: Active Protocol: Document 03/16/20 13:48 [facility] (Rec: 03/16/20 14:38 [facility] [id number]) Manual Assessments Joint Mobility Assessment Joint Mobility Assessment L iliac crest higher, equal greater trochanters PT-OP-G Mobility & Gait Start: 03/15/20 17:39 Freq: Status: Active Protocol: Document 03/16/20 13:48 [facility] (Rec: 03/16/20 14:38 [facility] [id number]) OP Mobility Evaluation Bed Mobility Rolling signficiant ext w/rolling PT-OP-J Posture/Palpation/Skin Start: 03/15/20 17:39 Freq: Status: Active Protocol: Document 05/11/20 09:45 [facility] (Rec: 05/11/20 10:35 [facility] [id number]) Posture Evaluation Judah Postural Classification System Elbow Flexion Test 4 Lumbar Protective Mechanism Left AP 3 Lumbar Protective Mechanism Right AP 4 Lumbar Protective Mechanism Left PA 3 Lumbar Protective Mechanism Right PA 4 PT-OP-K Range of Motion Start: 03/15/20 17:39 Freq: Status: Active Protocol: Document 05/11/20 09:45 [facility] (Rec: 05/11/20 10:35 [facility] [id number]) Lumbar Spine Range of Motion Lumbar Spine Active Degrees Flexion 40 PT-OP-M Strength Start: 07/13/20 17:39 Freq: Status: Active Protocol: Document 05/11/20 09:45 [facility] (Rec: 05/11/20 10:35 [facility] [id number]) Hip Strength Hip Manual Muscle Testing Right Flexion (L2) 4+ Good+ Extension (S1) 5 Normal Abduction 5 Normal External Rotation 5 Normal Left Flexion (L2) 4+ Good+ Extension (S1) 4+ Good+ Abduction 4+ Good+ External Rotation 5 Normal Internal Rotation 5 Normal Knee Strength Knee Manual Muscle Testing Right Flexion (S2) 5 Normal Extension (L3) 5 Normal Left Flexion (S2) 5 Normal Extension (L3) 5 Normal PT-OP-Q Treatments Start: 03/15/20 17:39 Freq: Status: Active Protocol: Document 05/11/20 09:45 [facility] (Rec: 05/11/20 10:35 [facility] [id number]) Therapeutic Activity Therapeutic Activity posture Name standing & sitting in mirror Manual Therapy Treatment Soft Tissue Mobilization 3 Body Location ES Comments seated rolling w/flex Joint Mobilizations 4 Joint T4-10 Direction UPA L & PA Grade II Comments FM seated w/rot PT-OP-T Assessment and Plan Start: 03/15/20 17:39 Freq: Status: Active Protocol: Document 05/11/20 09:45 [facility] (Rec: 05/11/20 10:35 [facility] [id number]) Physical Therapy Assessment Goals Four Short Term Goal (STG) Pt will be able to do sit<> stand with no greater than 2/ 10 pain. STG Duration achieved Boat Garnisher Goal (LTG) pt willb e able to get up/down from ground to do typical gardening tasks without inc pain. LTG Duration achieved for back but knee limits her d/t pain Three Impairment ROM Short Term Goal (STG) Pt will improve flex ROM by 15 deg to inc ability to bend over. STG Duration achieved Boat Garnisher Goal (LTG) Pt will be able to bend over to put on/off shoes/socks and feed dog without inc pain. LTG Duration achieved Two Impairment strength Short Term Goal (STG) Pt will be indep with HEP STG Duration achieved Halfway Goal (LTG) Pt will have at least 4+/5 LE strength and 3/5 LPM to show improved core stability in order to be able to do typical daily activities without pain . LTG Duration achieved One Impairment Oswestry 19/50 Short Term Goal (STG) pt will imrpove score on oswestry to 13/50 to show improved functional ability. STG Duration achieved Halfway Goal (LTG) pt will imrpove score on oswestry to 4/50 to show improved functional ability. LTG Duration pt reprots no issues Assessment Summary Assessment Pt is dc at this time d/t meeting all goals. She is indep with managign pain and tightness with her exercises and her only limitiation is her R Knee. She requierd cueing and reminders for posture but otherwise doingw ell. Physical Therapy Plan Discharge Physical Therapy Discharge Reasons Goals Met
== END 2020-05-12 13:20 ==
LOC: PHYS 09:45
PROVIDERS: PCP Internal Medicine; Referring Provider Internal Medicine; Visit Provider Internal Medicine
DX: S32.030G Wedge compression fracture of third lumbar vertebra, subsequent encounter for fracture with delayed healing (principal); S32.040G Wedge compression fracture of fourth lumbar vertebra, subsequent encounter for fracture with delayed healing; R53.1 Weakness; R29.3 Abnormal posture; M54.5 Low back pain
CPT/HCPCS: 97110; 97112; 97116; 97140; 97162; 97530

== ENCOUNTER 2020-07-18 10:46 | Emergency (ER) | payer MEDICARE, OTHER, SELFPAY ==
[2020-07-18] VITALS (15 sets, daily range): BP systolic 160–212; BP diastolic 73–91; PULSE 69–85; RESP 13–24; TEMP 36.6; O2SAT 87–100; BMI 19.8
--- NOTE | 2020-07-18 10:55 | DI.CT.S_ITS ---
PROCEDURE: CT HEAD/BRAIN WO CON INDICATIONS: difficulty speaking now resolved TECHNIQUE: Noncontrast 4.5 mm thick angled axial sections acquired from the foramen magnum to the vertex, with coronal and sagittal reformats. For radiation dose reduction, the following was used: automated exposure control, adjustment of mA and/or kV according to patient size. COMPARISON: None. FINDINGS: Image quality: Excellent. CSF spaces: Basal cisterns are patent. No extra-axial fluid collections. The ventricles are symmetric in size and shape. Brain: No intracranial bleeds or masses. There is cerebral volume loss for age, with resultant ventricular and sulcal prominence. There are periventricular and deep white matter chronic small vessel ischemic changes. There is intracranial internal carotid artery atherosclerosis. Skull and face: Calvarium and visualized facial bones appear intact, without suspicious lesions. Sinuses: Visualized sinuses and mastoids are clear. IMPRESSION: 1. Volume loss and small vessel ischemic disease. 2. No acute process. Dictated by: Jayro Herrera M.D. on 07/18/2020 at 10:11 Approved by: Jayro Herrera M.D. on 07/18/2020 at 10:12
--- NOTE | 2020-07-18 11:04 | ED_ITS ---
HPI - Neuro Symptoms/Deficit General Chief Complaint: Neuro Symptoms/Deficit Stated Complaint: pre stroke symptoms Time Seen by Provider: 07/18/20 10:55 Source: patient Mode of arrival: Ambulatory Limitations: no limitations History of Present Illness HPI Narrative: Patient is a 80-year-old female who has history of atrial fibrillation on Eliquis previous history migraines and seizures presenting today with difficulty speaking. She says her last known well is roughly 8:00 a.m. she had gotten out of the shower and had flashing lights in her eyes. She said she has previously had that when she had a seizure disorder and is a child and also had ocular migraine. She denies any visual changes. She says in the past she has gotten severe headache after she has had the flashes she feels like she is going to get a headache but does not yet have an. A few minutes after the flashing lights she tried to talk to her was unable to get the words out. She says symptoms lasted for about 45 minutes they have completely resolved now. She denies any other symptoms, including weakness numbness or tingling, or facial droop. She previously had 3 ablation for her atrial fibrillation in [place]. She states she previously had a TIA but she had visual loss at that time. Time: 08:00 Location: speech History of same: No Related Data Home Medications Medication Instructions Recorded Confirmed MULTIVITAMIN (Multivitamin 1 cap PO EVERY DAY #0 04/02/10 06/30/20 -) apixaban [Eliquis] 5 mg Q12H #0 08/08/16 06/30/20 lorazepam [Ativan] 0.25 mg PO PRN PRN #0 08/08/16 06/30/20 cyclobenzaprine 5 mg tablet 5 mg PO PRN #0 03/11/19 06/30/20 flecainide 50 mg tablet 50 mg PO QDAY #0 tab 03/11/19 06/30/20 verapamil 180 mg tablet,extended 120 mg PO #0 tab 03/11/19 06/30/20 release acetaminophen 650 mg 650 mg PO Q12H 06/30/20 06/30/20 tablet,extended release levothyroxine 25 mcg capsule 37.5 mcg PO DAILY cap 06/30/20 06/30/20 polyethylene glycol 3350 17 17 gram PO DAILY 06/30/20 06/30/20 gram/dose oral powder vitamin B complex no.10-FA 400 mcg mcg PO 06/30/20 06/30/20 tablet,extended release Previous Rx's Medication Instructions Recorded estradiol 0.05 mg/24 hr semiweekly 1 patch TOPICAL 2XW #24 patch 10/07/19 transdermal patch Allergies Allergy/AdvReac Type Severity Reaction Status Date / Time cephalexin [CEPHALEXIN] Allergy Intermediate RASH Unverified 06/30/20 13:04 Sulfa (Sulfonamide Allergy Intermediate RASH Unverified 06/30/20 13:04 Antibiotics) [SULFA (SULFONAMIDE ANTIBIOTICS)] margot AdvReac Uncoded 06/30/20 13:04 Review of Systems Review of Systems Narrative: GENERAL: Denies chills, fatigue, malaise, fever, sweats, travel HEENT: Denies sinus pain, ear pain, sore throat, difficulty swallowing, neck pain RESPIRATORY: Denies dyspnea, cough, wheezing, hemoptysis, sputum. CARDIOVASCULAR: Denies chest pain, palpitations, orthopnea, edema GASTROINTESTINAL: Denies nausea, vomiting, abdominal pain, diarrhea, constipation, melena. : Denies dysuria, frequency, incontinence, hematuria, urinary retention, flank pain. MUSCULOSKELETAL: Denies weakness, joint pain, or bony pain SKIN: No rash, no erythema, no pruritus NEUROLOGIC: See HPI PSYCHIATRIC: No concerning psychosocial issues. 12 point review of systems is negative except for those stated above and HPI Patient History Medical History Osteoarthritis of right knee (Chronic) Paroxysmal A-fib (Chronic) Surgical History History of bladder suspension procedure History of breast augmentation History of left hip replacement (Acute) History of third molar tooth extraction History of tonsillectomy S/P total abdominal hysterectomy and bilateral salpingo-oophorectomy Status post appendectomy Status post laminectomy Family History Mother Osteoporosis Sister Osteoporosis Social History Smoking Status: Never smoker Smoking Status: Never smoker Exam Initial Vital Signs Initial Vital Signs: Vital Signs Pulse Rate 83 07/18/20 10:54 Blood Pressure 198/91 H 07/18/20 10:54 Pulse Oximetry 99 07/18/20 10:54 GENERAL: Well-appearing, well-nourished and in no acute distress. HEENT: Head atraumatic,EOMI, pupils reactive, face symmetric, moist mucous membranes CARDIOVASCULAR: Regular rate and rhythm without murmurs, rubs or gallops. RESPIRATORY: Breath sounds equal bilaterally, no wheezes rales or rhonchi. ABDOMEN: Soft, nontender. Normoactive bowel sounds all 4 quadrants. No guarding or rebound. EXTREMITIES: Normal range of motion, no clubbing or edema. Neurovascularly intact NEUROLOGICAL: Alert and oriented x4.Normal gait and speech. Cranial nerves II through XII grossly intact. Good pfgphs-[id number], good yjcz-rz-hzwn, strength equal bilaterally, no dysarthria or aphasia, sensation in tact to soft touch bilaterally, no visual changes, no facial droop SKIN: Warm, dry, no laceration, no petechiae, no rashes or lesions. Scores ABCD2 Age >= 60 years: yes Initial BP. Either SBP >= 140 or DBP >= 90.: yes Clinical features of the TIA: speech disturbance without weakness Duration of symptoms: 10-59 minutes History of diabetes: no ABCD2 Score: 4 NIH Stroke Scale Level of Conciousness: Alert, keenly responsive Ask month/age: Answers both questions correctly. Open/close eyes, close hand: Performs both tasks correctly Best gaze horizontal: Normal Visual newman: No visual loss Facial palsy: Normal symetrical movement Left arm drift: No drift for full 10 sec Right arm drift: No drift for full 10 sec Left leg drift: No drift for full 5 sec Right leg drift: No drift for full 5 sec Limb ataxia: Absent Sensory on face/arms/legs: Normal, no sensory loss Best language: No aphasia, normal Dysarthria: Normal Extinction or inattention: No abnormality Total NIH Stroke scale score: 0 Course Orders Ordered: ED Orders 07/18/20 10:55 CT head/brain wo con Stat 07/18/20 10:58 Complete Blood Count AUTO DIFF Stat Comprehensive Metabolic Panel Stat Partial Thromboplastin Time Stat Prothrombin Time INR Stat Troponin & CK Cardiac Panel Stat 07/18/20 11:04 EKG-12 Lead Stat 07/18/20 12:19 Urinalysis and Microscopic Stat 07/18/20 12:40 COVID19 Routine 07/18/20 13:08 MR stroke Stat Vital Signs Vital signs: Vital Signs - 8 hr 07/18/20 10:54 07/18/20 11:00 07/18/20 11:04 Temperature 97.9 F Pulse Rate 83 80 82 Respiratory Rate 18 Blood Pressure 198/91 H 198/91 H Pulse Oximetry 99 98 100 07/18/20 11:06 07/18/20 11:30 07/18/20 12:00 Temperature Pulse Rate 85 72 74 Respiratory Rate Blood Pressure 181/80 H 160/81 H 183/84 H Pulse Oximetry 99 98 98 07/18/20 12:08 07/18/20 12:30 07/18/20 13:00 Temperature Pulse Rate 80 69 70 Respiratory Rate 13 18 Blood Pressure 212/91 H 168/79 H 169/83 H Pulse Oximetry 99 99 99 07/18/20 13:13 07/18/20 14:18 07/18/20 14:19 Temperature Pulse Rate 74 82 82 Respiratory Rate Blood Pressure 167/73 H Pulse Oximetry 99 96 98 07/18/20 14:30 07/18/20 15:00 07/18/20 15:01 Temperature Pulse Rate 73 84 81 Respiratory Rate 20 24 17 Blood Pressure 175/84 H 172/85 H Pulse Oximetry 98 87 L 99 MDM - Neuro Symptoms/Deficit Lab Data Attestation: I reviewed the patient's lab results. Result diagrams: 07/18/20 10:58 07/18/20 10:58 Labs: Lab Results 07/18/20 07/18/20 07/18/20 Range/Units 10:58 10:58 10:58 WBC 5.4 (4.5-11.0) X10^3/uL RBC 4.31 (4.0-5.2) X10^6/uL Hgb 13.4 (12.0-16.0) g/dL Hct 40.0 (36-46) % MCV 92.8 (80-100) fL MCH 31.1 (26-34) PG MCHC 33.5 (30-36) % RDW 13.3 (11.6-14.8) % Plt Count 233 (150-400) X10^3/uL Neut % (Auto) 56.4 (50-75) % Lymph % (Auto) 30.2 (25-40) % [place] % (Auto) 10.3 (3-14) % Eos % (Auto) 2.4 (2-4) % Baso % (Auto) 0.7 (0-2) % Neut # (Auto) 3000 (5103-8948) /uL Lymph # (Auto) 1600 (6654-2116) /uL [place] # (Auto) 600 (0-900) /uL Eos # (Auto) 100 (0-450) /uL Baso # (Auto) 0 (0-100) /uL PT 13.3 H (10.1-12.7) SECONDS INR 1.2 (0.9-1.3) APTT 33 (26.4-36.2) SECONDS Sodium 138 (137-145) mmol/L Potassium 3.9 (3.4-5.1) mmol/L Chloride 102 (98-107) mmol/L Carbon Dioxide 31 (22-32) mmol/L BUN 21 H (7-17) mg/dL Creatinine 0.75 (0.52-1.04) mg/dL Estimated GFR > 60.0 (>60) mL/min BUN/Creatinine Ratio 28.0 H (6-22) Glucose 105 (80-110) mg/dL Calcium 9.1 (8.4-10.2) mg/dL Total Bilirubin 0.5 (0.2-1.3) mg/dL AST 29 (14-36) IU/L ALT 16 (<35) IU/L Alkaline Phosphatase 68 (38-126) U/L Total Creatine Kinase 66 (30-135) U/L CK-MB (CK-2) TNP CK-MB (CK-2) Rel Index TNP Troponin I < 0.012 (0.01-0.034) ng/mL Total Protein 7.7 (6.3-8.2) g/dL Albumin 4.4 (3.5-5.0) g/dL Globulin 3.3 (1.7-4.1) g/dL Albumin/Globulin Ratio 1.3 (1.0-2.8) COVID-19 PCR (Negative) 07/18/20 Range/Units 12:40 WBC (4.5-11.0) X10^3/uL RBC (4.0-5.2) X10^6/uL Hgb (12.0-16.0) g/dL Hct (36-46) % MCV (80-100) fL MCH (26-34) PG MCHC (30-36) % RDW (11.6-14.8) % Plt Count (150-400) X10^3/uL Neut % (Auto) (50-75) % Lymph % (Auto) (25-40) % [place] % (Auto) (3-14) % Eos % (Auto) (2-4) % Baso % (Auto) (0-2) % Neut # (Auto) (6275-7727) /uL Lymph # (Auto) (2547-4114) /uL [place] # (Auto) (0-900) /uL Eos # (Auto) (0-450) /uL Baso # (Auto) (0-100) /uL PT (10.1-12.7) SECONDS INR (0.9-1.3) APTT (26.4-36.2) SECONDS Sodium (137-145) mmol/L Potassium (3.4-5.1) mmol/L Chloride (98-107) mmol/L Carbon Dioxide (22-32) mmol/L BUN (7-17) mg/dL Creatinine (0.52-1.04) mg/dL Estimated GFR (>60) mL/min BUN/Creatinine Ratio (6-22) Glucose (80-110) mg/dL Calcium (8.4-10.2) mg/dL Total Bilirubin (0.2-1.3) mg/dL AST (14-36) IU/L ALT (<35) IU/L Alkaline Phosphatase (38-126) U/L Total Creatine Kinase (30-135) U/L CK-MB (CK-2) CK-MB (CK-2) Rel Index Troponin I (0.01-0.034) ng/mL Total Protein (6.3-8.2) g/dL Albumin (3.5-5.0) g/dL Globulin (1.7-4.1) g/dL Albumin/Globulin Ratio (1.0-2.8) COVID-19 PCR Negative (Negative) Point of Care Testing Glucose POC 121 Urine Dip Bedside Urine Glucose Negative Bedside Urine Bilirubin - Negative Bedside Urine Ketone - Negative Urine Specific [place] 1.015 Bedside Urine Occult Blood - Negative Bedside Urine pH 6 Bedside Urine Protein - Negative Bedside Urine Urobilinogen - Negative Bedside Urine Leukocytes - Negative Esterase Imaging Data MR stroke: Radiologist's Impression: PROCEDURE: MR STROKE Pre- and post-contrast brain MRI, non-contrast brain MR angiogram, pre- and postcontrast neck MR angiogram INDICATIONS: tia TECHNIQUE: Brain: Noncontrast axial T1 spin echo, axial T2 fast spin echo, sagittal and axial FLAIR, coronal T2 fast spin echo, axial gradient echo, axial diffusion and ADC through the brain. After the administration of contrast, axial 3D VIBE of the cranial vasculature and brain. Brain MRA: Non-contrast 3-D time of flight MR angiogram, with multiple rnztafa-nzbwhvxwa-ywgtrlnfxb (MIP) reformats performed. Neck MRA: Axial and sagittal TruFISP through the neck. Coronal dynamic MR angiogram during administration of contrast in the arterial and venous phases, with 3- dimenstional zzfjtpj-osrzokehz-fkounyuufi (MIP) reformats constructed from subtraction images. COMPARISON: None. FINDINGS: Image quality: Degraded by patient positioning factors. Patient was unable to maintain a stationary position during the examination. BRAIN: CSF spaces: Ventricles are normal in size and shape. Basal cisterns are patent. No extra-axial fluid collections. Brain: No intracranial bleeds or mass effects. Mild diffuse cerebral volume loss. Moderate degree of patchy high FLAIR signal within the periventricular and subcortical white matter. Alva-white matter interface is normal. Diffusion weighted images show no acute ischemic insults. Brainstem appears normal. Normal intravascular flow voids are present. No abnormal intracranial enhancement. Skull and face: Calvarial marrow signal is normal. Orbits appear normal. Sinuses: Sinuses and mastoids are clear. BRAIN MR ANGIOGRAM: Anterior circulation: Intracranial internal carotid arteries are normal in size and enhancement. The flow within the paired anterior cerebral arteries is normal and symmetric. The flow within the middle cerebral arteries is normal and symmetric. The anterior communicating artery is seen. No stenoses, occlusions, or aneurysms. Posterior circulation: The visualized portions of the vertebral arteries demonstrate normal caliber, and join to form a normal appearing basilar artery. The flow within the posterior cerebral arteries is normal and symmetric. No stenoses, occlusions, or aneurysms. NECK MR ANGIOGRAM: System Technologist T2 images of the neck are grossly unremarkable. Thoracic aortic arch is widely patent. There is a common origin of the innominate and left common carotid arteries which is patent. Innominate artery is patent. Right subclavian artery is patent. Right vertebral artery is not well seen within its mid portion secondary to venous overlap, but is otherwise patent. Right common carotid artery is patent as visualized. Right internal carotid artery is not included in the scan plane. Left common carotid artery is patent proximally, but is not well seen within its mid and distal aspects. Left internal carotid artery is not included. Left subclavian artery is patent. Left vertebral artery is not well seen secondary to venous overlap. IMPRESSION: BRAIN MRI: 1. No acute process. No recent infarct. 2. Volume loss and small vessel ischemic disease. BRAIN MR ANGIOGRAM: Negative cerebral MR angiography. NECK MR ANGIOGRAM: 1. Limited examination secondary to patient positioning factors. 2. Nonvisualization of the internal carotid arteries. 3. Limited evaluation of the vertebral arteries. 4. Patent great vessels. Dictated by: Jayro Herrera M.D. on 07/18/2020 at 13:26 Approved by: Jayro Herrera M.D. on 07/18/2020 at 13:33 ECG Data Attestation: I personally reviewed and interpreted this ECG as follows: Prior ECG tracings: available for review Interpretation: Interval 192 QRS [address] changes or T-wave inversions previous EKG shows atrial flutter MDM Narrative Medical decision making narrative: 1245- Dr. Hector request talking to neuro if complicated migraine versus TIA 1305- Dr. Pinto, neurology at [facility] has been updated on patient's symptoms test results agrees it sounds like complicated migraine but still needs a stroke workup such as MRI and CTA Patient got MRI which did show small vessel did he has but no acute infarct. She had what sounds like an aura of flashing lights similar to her previous migraine. She now says that she has a slight headache. Symptoms seem to be more like complicated migraine rather than TIA. She is noted to be quite hypertensive at times which fluctuates in the ED. 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 She also says that she occasionally has chest pain with exertion. Troponin EKG are overall reassuring today Discharge Plan Departure Patient Disposition: Home Clinical Impression: Complicated migraine Discharge Date/Time: 07/18/20 15:23 Instructions: DI for Migraine Activity Restrictions/Additional Instructions: *You have been diagnosed with complicated migraine *What to do: At this time her blood pressure is quite variable. 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 *Continue to take medications as directed *Follow up with your primary care provider in 2-3 days *Return to ER if you should have difficulty speaking, facial droop, weakness, numbness, tingling or any new, worsening or concerning symptoms Prescriptions: No Action MULTIVITAMIN (Multivitamin -) 1 cap PO EVERY DAY Qty: 0 RF: 0 lorazepam [Ativan] 0.5 MG tablet 0.25 mg PO PRN PRNQty: 0 RF: 0 apixaban [Eliquis] 5 MG tablet 5 mg Q12H Qty: 0 RF: 0 cyclobenzaprine 5 mg tablet 5 mg PO PRNQty: 0 RF: 0 flecainide 50 mg tablet 50 mg PO QDAY Qty: 0 RF: 0 verapamil 180 mg tablet extended release 120 mg PO Qty: 0 RF: 0 estradiol 0.05 mg/24 hr patch semiweekly 1 patch topical 2XW Qty: 24 RF: 3 levothyroxine 25 mcg capsule 37.5 mcg PO DAILY RF: 0 vitamin B complex no.10-FA 400 mcg tablet extended release PO RF: 0 polyethylene glycol 3350 [Miralax] 17 gram/dose powder 17 gram PO DAILY RF: 0 acetaminophen [Tylenol Arthritis Pain] 650 mg tablet extended release 650 mg PO Q12H RF: 0 Referrals: Joel Laguna MD [Primary Care Provider] -
[2020-07-18 11:11] LABS: Add Manual Diff / Slide Review NO; Basophils Absolute Auto 0 /uL (0-100); Basophils Percent Auto 0.7 % (0-2); Eosinophils Absolute Auto 100 /uL (0-450); Eosinophils Percent Auto 2.4 % (2-4); Hemoglobin 13.4 g/dL (12.0-16.0); Lymphocytes Absolute Auto 1600 /uL (1100-4500); Lymphocytes Percent Auto 30.2 % (25-40); Mean Corpuscular HGB Conc 33.5 % (30-36); Mean Corpuscular Hemoglobin 31.1 PG (26-34); Mean Corpuscular Volume 92.8 fL (80-100); Monocytes Absolute Auto 600 /uL (0-900); Monocytes Percent Auto 10.3 % (3-14); Neutrophils Absolute Auto 3000 /uL (1500-7000); Neutrophils Percent Auto 56.4 % (50-75); Platelet Count 233 X10^3/uL (150-400); Red Blood Cell Count 4.31 X10^6/uL (4.0-5.2); Red Cell Distribution Width 13.3 % (11.6-14.8); White Blood Cell Count 5.4 X10^3/uL (4.5-11.0)
[2020-07-18 11:19] LABS: INR 1.2 (0.9-1.3); Prothrombin Time 13.3 SECONDS (10.1-12.7)
[2020-07-18 11:21] LABS: PTT Partial Thromboplastin Tim 33 SECONDS (26.4-36.2)
[2020-07-18 11:24] LABS: Alanine Aminotransferase 16 IU/L (<35); Albumin 4.4 g/dL (3.5-5.0); Albumin Globulin Ratio 1.3 (1.0-2.8); Alkaline Phosphatase 68 U/L (38-126); Aspartate Aminotransferase 29 IU/L (14-36); Bilirubin Total 0.5 mg/dL (0.2-1.3); Blood Urea Nitrogen 21 mg/dL (7-17); Calcium 9.1 mg/dL (8.4-10.2); Carbon Dioxide 31 mmol/L (22-32); Chloride 102 mmol/L (98-107); Creatine Kinase 66 U/L (30-135); Estimated Glomerular Filt Rate > 60.0 mL/min (>60); Globulin 3.3 g/dL (1.7-4.1); Glucose 105 mg/dL (80-110); HEMOLYSIS 27 (0-50); Potassium 3.9 mmol/L (3.4-5.1); Sodium 138 mmol/L (137-145); Total Protein 7.7 g/dL (6.3-8.2)
[2020-07-18 11:35] LABS: Troponin I < 0.012 ng/mL (0.01-0.034)
[2020-07-18 13:03] LABS: COVID19 -Nasal RAPID Negative (Negative)
--- NOTE | 2020-07-18 13:08 | DI.MRI.S_ITS ---
PROCEDURE: MR STROKE Pre- and post-contrast brain MRI, non-contrast brain MR angiogram, pre- and postcontrast neck MR angiogram INDICATIONS: tia TECHNIQUE: Brain: Noncontrast axial T1 spin echo, axial T2 fast spin echo, sagittal and axial FLAIR, coronal T2 fast spin echo, axial gradient echo, axial diffusion and ADC through the brain. After the administration of contrast, axial 3D VIBE of the cranial vasculature and brain. Brain MRA: Non-contrast 3-D time of flight MR angiogram, with multiple bwwtgvy-dpueeqzhv-glbikuyhtf (MIP) reformats performed. Neck MRA: Axial and sagittal TruFISP through the neck. Coronal dynamic MR angiogram during administration of contrast in the arterial and venous phases, with 3-dimenstional joeihxn-bzobvqkqf-uqpkglqggr (MIP) reformats constructed from subtraction images. COMPARISON: None. FINDINGS: Image quality: Degraded by patient positioning factors. Patient was unable to maintain a stationary position during the examination. BRAIN: CSF spaces: Ventricles are normal in size and shape. Basal cisterns are patent. No extra-axial fluid collections. Brain: No intracranial bleeds or mass effects. Mild diffuse cerebral volume loss. Moderate degree of patchy high FLAIR signal within the periventricular and subcortical white matter. Alva-white matter interface is normal. Diffusion weighted images show no acute ischemic insults. Brainstem appears normal. Normal intravascular flow voids are present. No abnormal intracranial enhancement. Skull and face: Calvarial marrow signal is normal. Orbits appear normal. Sinuses: Sinuses and mastoids are clear. BRAIN MR ANGIOGRAM: Anterior circulation: Intracranial internal carotid arteries are normal in size and enhancement. The flow within the paired anterior cerebral arteries is normal and symmetric. The flow within the middle cerebral arteries is normal and symmetric. The anterior communicating artery is seen. No stenoses, occlusions, or aneurysms. Posterior circulation: The visualized portions of the vertebral arteries demonstrate normal caliber, and join to form a normal appearing basilar artery. The flow within the posterior cerebral arteries is normal and symmetric. No stenoses, occlusions, or aneurysms. NECK MR ANGIOGRAM: Coke Drawer Hand T2 images of the neck are grossly unremarkable. Thoracic aortic arch is widely patent. There is a common origin of the innominate and left common carotid arteries which is patent. Innominate artery is patent. Right subclavian artery is patent. Right vertebral artery is not well seen within its mid portion secondary to venous overlap, but is otherwise patent. Right common carotid artery is patent as visualized. Right internal carotid artery is not included in the scan plane. Left common carotid artery is patent proximally, but is not well seen within its mid and distal aspects. Left internal carotid artery is not included. Left subclavian artery is patent. Left vertebral artery is not well seen secondary to venous overlap. IMPRESSION: BRAIN MRI: 1. No acute process. No recent infarct. 2. Volume loss and small vessel ischemic disease. BRAIN MR ANGIOGRAM: Negative cerebral MR angiography. NECK MR ANGIOGRAM: 1. Limited examination secondary to patient positioning factors. 2. Nonvisualization of the internal carotid arteries. 3. Limited evaluation of the vertebral arteries. 4. Patent great vessels. Dictated by: Jayro Herrera M.D. on 07/18/2020 at 13:26 Approved by: Jayro Herrera M.D. on 07/18/2020 at 13:33
== END 2020-07-18 15:23 | disposition home or self-care (01) ==
PROVIDERS: Emergency Provider Emergency Medicine; PCP Internal Medicine
DX: G43.109 Migraine with aura, not intractable, without status migrainosus (principal); R47.81 Slurred speech; I48.91 Unspecified atrial fibrillation; Z79.01 Long term (current) use of anticoagulants
CPT/HCPCS: 36415; 70450; 70548; 70553; 80053; 81003; 82550; 82962; 84484; 85025; 85610; 85730; 87635; 93005; 99284; A9579

== ENCOUNTER → 2020-07-21 14:00 | Outpatient (CLI) | payer MEDICARE, OTHER, SELFPAY ==
[2020-07-21 15:51] LABS: TSH w/ Reflex to FT4 0.25 uIU/mL (0.47-4.68)
== END ==
PROVIDERS: PCP Internal Medicine; Referring Provider Internal Medicine; Visit Provider Internal Medicine
DX: I48.91 Unspecified atrial fibrillation (principal); E78.2 Mixed hyperlipidemia; E03.9 Hypothyroidism, unspecified
CPT/HCPCS: 36415; 84439; 84443

== ENCOUNTER → 2020-09-09 08:19 | Outpatient (CLI) | payer MEDICARE, OTHER, SELFPAY ==
[2020-09-09 09:37] LABS: Alanine Aminotransferase 18 IU/L (<35); Albumin 4.4 g/dL (3.5-5.0); Albumin Globulin Ratio 1.6 (1.0-2.8); Alkaline Phosphatase 71 U/L (38-126); Aspartate Aminotransferase 30 IU/L (14-36); BUN Creatinine Ratio 23.7 (6-22); Bilirubin Total 0.3 mg/dL (0.2-1.3); Blood Urea Nitrogen 22 mg/dL (7-17); Calcium 9.5 mg/dL (8.4-10.2); Carbon Dioxide 34 mmol/L (22-32); Chloride 99 mmol/L (98-107); Estimated Glomerular Filt Rate 58.2 mL/min (>60); Globulin 2.8 g/dL (1.7-4.1); Glucose 84 mg/dL (80-110); HEMOLYSIS < 15 (0-50); Potassium 4.2 mmol/L (3.4-5.1); Sodium 137 mmol/L (137-145); Total Protein 7.2 g/dL (6.3-8.2)
== END ==
PROVIDERS: PCP Internal Medicine; Referring Provider Nurse Practitioner Acute Care; Visit Provider Nurse Practitioner Acute Care
DX: Z51.81 Encounter for therapeutic drug level monitoring (principal); Z79.899 Other long term (current) drug therapy; Z79.01 Long term (current) use of anticoagulants
CPT/HCPCS: 36415; 80053

== ENCOUNTER → 2020-09-24 08:01 | Outpatient (CLI) | payer MEDICARE, OTHER, SELFPAY ==
[2020-09-24] MEDS: COVID-19 VACC #1, MRNA(MOD) 100 MCG/0.5 ML VIAL IM (08:06)
== END ==
PROVIDERS: PCP Internal Medicine; Visit Provider Internal Medicine
DX: Z23 Encounter for immunization (principal)
CPT/HCPCS: 0011A; 91301

== ENCOUNTER → 2020-10-22 07:43 | Outpatient (CLI) | payer MEDICARE, OTHER, SELFPAY ==
[2020-10-22] MEDS: COVID-19 VACC #2, MRNA(MOD) 100 MCG/0.5 ML VIAL IM (07:46)
== END ==
PROVIDERS: PCP Internal Medicine; Visit Provider Internal Medicine
DX: Z23 Encounter for immunization (principal)
CPT/HCPCS: 0012A; 91301

== ENCOUNTER → 2020-11-04 11:53 | Outpatient (CLI) | payer MEDICARE, OTHER, SELFPAY ==
[2020-11-04 13:52] LABS: TSH w/ Reflex to FT4 2.35 uIU/mL (0.47-4.68)
== END ==
PROVIDERS: PCP Internal Medicine; Referring Provider Internal Medicine; Visit Provider Internal Medicine
DX: E03.9 Hypothyroidism, unspecified (principal)
CPT/HCPCS: 84443

== ENCOUNTER → 2020-12-13 15:24 | Outpatient (CLI) | payer MEDICARE, OTHER, SELFPAY ==
--- NOTE | 2020-12-13 | DI.MG.S_ITS ---
BILATERAL DIGITAL SCREENING MAMMOGRAM 3D/2D WITH CAD WITH AUGMENTATION: 12/13/2020 CLINICAL: Routine screening. Comparison is made to exams dated: 10/09/2019 mammogram - [facility], 09/30/2018 mammogram, and 09/06/2017 mammogram - [facility]. There are scattered fibroglandular elements in both breasts. Current study was also evaluated with a Computer Aided Detection (CAD) system. Bilateral breast implants are stable. No significant masses, calcifications, or other findings are seen in either breast. There has been no significant interval change. IMPRESSION: NEGATIVE There is no mammographic evidence of malignancy. A 1 year screening mammogram is recommended. This exam was interpreted at Station ID: [id number]. NOTE: For mammograms, a report in lay terms will be sent to the patient. Approximately 15% of breast malignancies will not be visualized mammographically. In the management of a palpable breast mass, a negative mammogram must not discourage biopsy of a clinically suspicious lesion. Electronically Signed By: Silvia thakkar/sal:12/13/2020 16:12:28 copy to: Marlena Layne letter sent: Normal Exam ACR BI-RADS Category 1: Negative 3341F
== END ==
PROVIDERS: PCP Internal Medicine; Referring Provider Internal Medicine; Visit Provider Internal Medicine
DX: Z12.31 Encounter for screening mammogram for malignant neoplasm of breast (principal); Z78.0 Asymptomatic menopausal state; E07.9 Disorder of thyroid, unspecified; K92.9 Disease of digestive system, unspecified; Z90.722 Acquired absence of ovaries, bilateral; Z82.62 Family history of osteoporosis
CPT/HCPCS: 77063; 77067; 77080

== ENCOUNTER → 2021-10-26 10:11 | Outpatient (CLI) | payer MEDICARE, OTHER, SELFPAY ==
[2021-10-26 14:31] LABS: Appearance Urine UA CLOUDY; Bilirubin Urine UA NEGATIVE (NEGATIVE); Color Urine UA ORANGE; Glucose Urine UA TRACE g/dL (Negative); Ketones Urine UA NEGATIVE (NEGATIVE); Leukocyte Esterase Urine UA 3+ (NEGATIVE); Nitrite Urine UA POSITIVE (Negative); Occult Blood Urine UA 2+ (Negative); Protein Urine UA 2+ (Negative); Specific Gravity Urine UA 1.015 (1.000-1.035)
[2021-10-26 14:32] LABS: pH Urine UA 6.5 (4.5-8.0)
[2021-10-26 14:40] LABS: Amorphous Sediment Urine 2+; Bacteria Urine Moderate (10-30); RBC Urine 0-1/HPF (0-5/HPF); WBC Urine 10-30/HPF (0-5/HPF)
== END ==
PROVIDERS: PCP Family Medicine; Referring Provider Family Medicine; Visit Provider Family Medicine
DX: R30.0 Dysuria (principal); R35.0 Frequency of micturition
CPT/HCPCS: 81001; 87086

== ENCOUNTER → 2021-12-28 15:27 | Outpatient (CLI) | payer MEDICARE, OTHER, SELFPAY ==
[2021-12-28 18:53] LABS: Free T4, Direct Thyroxine 1.47 ng/dL (0.78-2.19)
[2021-12-28 19:07] LABS: Thyroid Stimulating Hormone 3.68 uIU/mL (0.47-4.68)
[2021-12-29 07:45] LABS: Triiodothyronine T3 Total 94 ng/dL (71-180)
== END ==
PROVIDERS: PCP Family Medicine; Referring Provider Nurse Practitioner; Visit Provider Nurse Practitioner
DX: I48.0 Paroxysmal atrial fibrillation (principal); I20.9 Angina pectoris, unspecified; E03.8 Other specified hypothyroidism
CPT/HCPCS: 36415; 84439; 84443; 84480

== ENCOUNTER → 2022-01-02 10:45 | Outpatient (CLI) | payer MEDICARE, OTHER, SELFPAY ==
--- NOTE | 2022-01-02 | DI.MG.S_ITS ---
BILATERAL DIGITAL SCREENING MAMMOGRAM 3D/2D WITH CAD WITH AUGMENTATION: 01/02/2022 CLINICAL: Patient presents for routine screening. S/P bilateral augmentation. Comparison is made to exams dated: 12/13/2020 mammogram, 10/09/2019 mammogram - [facility], and 09/30/2018 mammogram - [facility]. There are scattered fibroglandular elements in both breasts. Current study was also evaluated with a Computer Aided Detection (CAD) system. Bilateral breast implants are stable. No significant masses, calcifications, or other findings are seen in either breast. There has been no significant interval change. IMPRESSION: NEGATIVE There is no mammographic evidence of malignancy. A 1 year screening mammogram is recommended. This exam was interpreted at Station ID: [id number]. NOTE: For mammograms, a report in lay terms will be sent to the patient. Approximately 15% of breast malignancies will not be visualized mammographically. In the management of a palpable breast mass, a negative mammogram must not discourage biopsy of a clinically suspicious lesion. Electronically Signed By: Armand reveles/sal:01/02/2022 12:49:10 copy to: Marlena Layne letter sent: Normal Exam ACR BI-RADS Category 1: Negative [id number]
== END ==
PROVIDERS: PCP Family Medicine; Referring Provider Family Medicine; Visit Provider Family Medicine
DX: Z12.31 Encounter for screening mammogram for malignant neoplasm of breast (principal); Z98.82 Breast implant status
CPT/HCPCS: 77063; 77067

== ENCOUNTER → 2022-01-23 07:28 | Outpatient (CLI) | payer MEDICARE, OTHER, SELFPAY ==
[2022-01-23 08:29] LABS: BUN Creatinine Ratio 25.3 (6-22); Blood Urea Nitrogen 23 mg/dL (7-17); Estimated Glomerular Filt Rate > 60 mL/min (>60)
== END ==
PROVIDERS: PCP Family Medicine; Referring Provider Family Medicine; Visit Provider Family Medicine
DX: Z79.899 Other long term (current) drug therapy (principal)
CPT/HCPCS: 36415; 82565; 84520

== ENCOUNTER → 2022-02-09 16:31 | Outpatient (CLI) | payer MEDICARE, OTHER, SELFPAY ==
--- NOTE | 2022-02-09 | DI.MRI.S_ITS ---
PROCEDURE: MR LUMBAR SPINE WO/W CON INDICATIONS: Lumbago with sciatica, left side TECHNIQUE: Noncontrast sagittal T1 spin echo and T2 fast echo, sagittal STIR, and T2 fast spin echo through the lumbar spine. In cases with scoliosis, additional coronal T2 fast spin echo may be performed. COMPARISON: MR, MR LUMBAR SPINE WO CON, 11/10/2019, 8:30. CR, XR LUMBAR SPINE 2-3V, 11/06/2019, 14:13. FINDINGS: Image quality: Excellent. Alignment and Curvature: There is trace, approximately 5 millimeters of L1-L2 and 2 millimeters of L2-L3 retrolisthesis. There is trace, approximately 3 millimeters of L3-L4 anterolisthesis. Convex right lumbar spine scoliosis. Bone Marrow: Modic type 2 reactive endplate changes noted adjacent to the L5-S1 disc. No acute vertebral body compression fractures. Spinal Cord: Conus medullaris terminates at the L1-2 disc level. Visualized cord demonstrates normal signal and size. Paraspinous Soft Tissues: No paravertebral masses. T12-L1: Loss of disc signal. Minimal, diffuse disc bulge. No central stenosis. No neural foraminal narrowing. No neural compression. L1-L2: Loss of disc signal and height. Moderate, diffuse disc bulge. Mild bilateral facet hypertrophy. Mild narrowing of the central canal. Mild to moderate bilateral neural foraminal narrowing. No neural compression. L2-L3: Loss of disc signal and slight loss of disc height. Moderate, diffuse disc bulge. Mild bilateral facet hypertrophy. Mild narrowing of the central canal. Mild right and moderate left neural foraminal narrowing. No neural compression. L3-L4: Loss of disc signal. Mild to moderate diffuse disc bulge. Moderate bilateral facet hypertrophy. Mild to moderate narrowing of the central canal. Mild right and [id number] left neural foraminal narrowing. No neural compression. L4-L5: Loss of disc signal and height. Mild, diffuse disc bulge. Severe bilateral facet hypertrophy. Moderate ligamentum flavum hypertrophy. Moderate to severe narrowing of the central canal. Moderate right and mild left neural foraminal narrowing. No neural compression. L5-S1: Loss of disc signal. Mild, diffuse disc bulge. Mild bilateral facet hypertrophy. No central stenosis. Moderate to severe right and mild left neural foraminal narrowing with slight compression of the exiting right L5 nerve root. S2-S3 Tarlov cysts incidentally noted. IMPRESSION: 1. Multilevel degenerative disc disease. 2. Multilevel facet arthropathy. 3. Moderate to severe L4-L5 central canal narrowing. 4. Moderate to severe right L5-S1 neural foraminal narrowing with slight compression of the exiting right L5 nerve root. 5. Convex right scoliosis. 6. No suspicious postcontrast enhancement. Dictated by: Audrey Rinaldi MD, PhD on 02/10/2022 at 7:54 Approved by: Audrey Rinaldi MD, PhD on 02/10/2022 at 9:28
== END ==
PROVIDERS: Family Provider Family Medicine; PCP Family Medicine; Referring Provider Family Medicine; Visit Provider Family Medicine
DX: M51.16 Intervertebral disc disorders with radiculopathy, lumbar region (principal); M48.061 Spinal stenosis, lumbar region without neurogenic claudication; M51.17 Intervertebral disc disorders with radiculopathy, lumbosacral region; M48.07 Spinal stenosis, lumbosacral region; M47.26 Other spondylosis with radiculopathy, lumbar region; M47.27 Other spondylosis with radiculopathy, lumbosacral region; M41.9 Scoliosis, unspecified; Z98.890 Other specified postprocedural states
CPT/HCPCS: 72158; A9579

== ENCOUNTER 2022-02-14 03:11 | Emergency (ER) | payer MEDICARE, OTHER, SELFPAY ==
--- NOTE | 2022-02-14 03:21 | DI.CT.S_ITS ---
PROCEDURE: CT KIDNEY URETER BLADDER (KUB) INDICATIONS: flank pain eval for stone TECHNIQUE: Axial sections were acquired from the lung bases to the pubic symphysis. Coronal and sagittal reformats were performed. For radiation dose reduction, the following was used: automated exposure control, adjustment of mA and/or kV according to patient size. COMPARISON: None. FINDINGS: Image quality: Excellent. Lung bases: Unremarkable. Bilateral mammoplasties. Heart: No significant findings. URINARY: Right Kidney: No stones or hydronephrosis. Right Ureter: No hydroureter. Left Kidney: No stones or hydronephrosis. Left Ureter: No hydroureter. Bladder: Normal wall thickness. No stones. Pelvic floor relaxation with cystocele. ABDOMEN: Liver: Unremarkable. Gallbladder: Unremarkable. Biliary ducts: Unremarkable. Pancreas: Unremarkable. Spleen: Unremarkable. Adrenal Glands: Unremarkable. Stomach and Bowel: Stomach, small bowel loops, and colon are unremarkable. Moderately large fecal load. Peritoneum: No abnormal intraperitoneal fluid. No free air. Ventral Wall: No hernia. Abdominal Nodes: No enlarged retroperitoneal or mesenteric lymph nodes. Vessels: Aorta and inferior vena cava are normal in size. PELVIS: Pelvic Organs: Remote hysterectomy. Pelvic floor relaxation with cystocele. Pelvic Nodes: Unremarkable. Miscellaneous: No inguinal hernias are seen. Bones: S shaped scoliotic curvature, lumbar degenerative change. Old L3 compression. Total left hip prosthesis. IMPRESSION: 1. No renal stone, ureteral stone, or hydronephrosis. 2. Pelvic floor relaxation with cystocele. 3. Moderately large fecal load. Comment: Final report is concordant with preliminary interpretation provided by [facility]. Dictated by: Marlon Alexander M.D. on 02/14/2022 at 7:52 Approved by: Marlon Alexander M.D. on 02/14/2022 at 7:55
--- NOTE | 2022-02-14 03:24 | ED.GENADULT ---
HPI - General Adult General Chief complaint: Urogenital-Female Stated complaint: LEFT FLANK PAIN Time Seen by Provider: 02/14/22 03:20 Source: patient Mode of arrival: Ambulatory Limitations: no limitations History of Present Illness HPI narrative: Patient is a 81-year-old female who is here for evaluation of left-sided flank pain. Her symptoms have been going on for the past couple days. She does have a lidocaine patch over the area but this has not helped any of her symptoms. Not worse with palpation. She describes it as deep down inside. No rashes. Not worse with movement. No urinary symptoms. She did take MiraLax yesterday and had a small bowel movement afterwards. She states that since she had COVID at the beginning of the year she has had prolonged GI issues. Related Data Home Medications Medication Instructions Recorded Confirmed MULTIVITAMIN (Multivitamin 1 cap PO EVERY DAY ##0 04/02/10 11/30/21 -) apixaban 5 mg tablet (Eliquis) 5 mg Q12H ##0 08/08/16 11/30/21 lorazepam 0.5 mg tablet (Ativan) 0.25 mg PO PRN PRN ##0 08/08/16 11/30/21 cyclobenzaprine 5 mg tablet 5 mg PO PRN ##0 03/11/19 11/30/21 verapamil 180 mg tablet,extended 120 mg PO #0 tabs 03/11/19 11/30/21 release acetaminophen 650 mg 650 mg PO Q12H 06/30/20 11/30/21 tablet,extended release (Tylenol Arthritis Pain) levothyroxine 25 mcg capsule 37.5 mcg PO DAILY 06/30/20 11/30/21 polyethylene glycol 3350 17 17 gram PO DAILY 06/30/20 11/30/21 gram/dose oral powder (Miralax) vitamin Bcomplex no.10-folic acid mcg PO 06/30/20 11/30/21 ER 400 mcg tablet,extended release Previous Rx's Medication Instructions Recorded estradiol 0.05 mg/24 hr semiweekly See Rx Instructions .Route 11/30/21 transdermal patch (Tasia) .COMPLEX #24 patches Allergies Allergy/AdvReac Type Severity Reaction Status Date / Time Sulfa (Sulfonamide Allergy Intermediate RASH Verified 02/14/22 03:39 Antibiotics) [SULFA (SULFONAMIDE ANTIBIOTICS)] margot AdvReac Uncoded 11/30/21 10:17 Review of Systems Constitutional Constitutional: Denies fever(s) Cardiovascular Cardiovascular: Reports system reviewed and no additional complaints, except as documented Respiratory Respiratory: Reports system reviewed and no additional complaints, except as documented Gastrointestinal Gastrointestinal: Reports system reviewed and no additional complaints, except as documented Genitourinary Genitourinary: Reports system reviewed and no additional complaints, except as documented Musculoskeletal Musculoskeletal: Reports system reviewed and no additional complaints, except as documented Integumentary/Breasts Skin/Breast: Reports system reviewed and no additional complaints, except as documented Hematologic/Lymphatic On Anticoagulants: Yes Patient History Medical History Osteoarthritis of right knee Paroxysmal A-fib Surgical History History of bladder suspension procedure History of breast augmentation History of left hip replacement History of third molar tooth extraction History of tonsillectomy S/P total abdominal hysterectomy and bilateral salpingo-oophorectomy Status post appendectomy Status post laminectomy Family History Mother Osteoporosis Sister Osteoporosis Social History Smoking Status: Never smoker Smoking Status: Never smoker Substance Use Type: does not use Exam Initial Vital Signs Initial Vital Signs: Vital Signs Pulse Rate 90 02/14/22 03:31 Respiratory Rate 16 02/14/22 03:31 Blood Pressure 149/87 H 02/14/22 03:31 Pulse Oximetry 99 02/14/22 03:31 Oxygen Delivery Method 02/14/22 03:31 Const General: cooperative and well developed HENDE Head: normal to inspection Resp Effort & Inspection: normal respiratory effort Cardio Rate: regular rate GI Inspection: normal to inspection Palpation: soft and No tender Back/Spine/Pelvis Back: No CVA tenderness Skin General: no rashes or lesions noted Neuro General: patient alert, patient awake and moves all extremities Extrem General: normal to inspection Psych Appearance: grossly normal and well kempt Course Orders Ordered: ED Orders 02/14/22 03:21 CT kidney ureter bladder (KUB) Stat 02/14/22 03:24 Complete Blood Count AUTO DIFF Stat Comprehensive Metabolic Panel Stat Lipase Stat Discontinued Medications Hydromorphone HCl (Hydromorphone 0.5 Mg Inj) 0.5 mg IV NOW ONE Stop: 02/14/22 03:21 Last Admin: 02/14/22 03:27 Dose: 0.5 mg Documented By: THOMAS Ketorolac Tromethamine (Ketorolac 30 Mg/Ml Vial) 30 mg IV NOW ONE Stop: 02/14/22 04:32 Last Admin: 02/14/22 04:40 Dose: 30 mg Documented By: THOMAS Vital Signs Vital signs: Vital Signs - 8 hr 02/14/22 03:31 Pulse Rate 90 Respiratory Rate 16 Blood Pressure 149/87 H Pulse Oximetry 99 Oxygen Delivery Method Room Air Medical Decision Making Lab Data Lab results reviewed: Yes I reviewed the patient's lab results. Result diagrams: 02/14/22 03:24 02/14/22 03:24 Labs: Lab Results 02/14/22 02/14/22 Range/Units 03:24 03:24 WBC 4.3 L (4.5-11.0) X10^3/uL RBC 4.43 (4.0-5.2) X10^6/uL Hgb 13.4 (12.0-16.0) g/dL Hct 39.4 (36-46) % MCV 88.9 (80-100) fL MCH 30.3 (26-34) PG MCHC 34.0 (30-36) % RDW 14.7 (11.6-14.8) % Plt Count 197 (150-400) X10^3/uL Neut % (Auto) 51.2 (50-75) % Lymph % (Auto) 34.9 (25-40) % [place] % (Auto) 10.3 (3-14) % Eos % (Auto) 2.8 (2-4) % Baso % (Auto) 0.8 (0-2) % Neut # (Auto) 2200 (8007-7649) /uL Lymph # (Auto) 1500 (9213-6098) /uL [place] # (Auto) 400 (0-900) /uL Eos # (Auto) 100 (0-450) /uL Baso # (Auto) 0 (0-100) /uL Sodium 138 (137-145) mmol/L Potassium 3.8 (3.4-5.1) mmol/L Chloride 101 (98-107) mmol/L Carbon Dioxide 30 (22-32) mmol/L BUN 19 H (7-17) mg/dL Creatinine 0.84 (0.52-1.04) mg/dL Estimated GFR > 60 (>60) mL/min BUN/Creatinine Ratio 22.6 H (6-22) Glucose 107 (80-110) mg/dL Calcium 9.3 (8.4-10.2) mg/dL Total Bilirubin 0.5 (0.2-1.3) mg/dL AST 30 (14-36) IU/L ALT 16 (<35) IU/L Alkaline Phosphatase 74 (38-126) U/L Total Protein 8.1 (6.3-8.2) g/dL Albumin 4.8 (3.5-5.0) g/dL Globulin 3.3 (1.7-4.1) g/dL Albumin/Globulin Ratio 1.5 (1.0-2.8) Lipase 83 (23-300) U/L Urine Dip Bedside Urine Glucose Negative Bedside Urine Bilirubin - Negative Bedside Urine Ketone - Negative Urine Specific [place] 1.010 Bedside Urine Occult Blood - Negative Bedside Urine pH 7.0 Bedside Urine Protein - Negative Bedside Urine Urobilinogen - Negative Bedside Urine Nitrite - Negative Bedside Urine Leukocytes - Negative Esterase Point of care testing: Urine Dip Bedside Urine Glucose Negative Bedside Urine Bilirubin - Negative Bedside Urine Ketone - Negative Urine Specific [place] 1.010 Bedside Urine Occult Blood - Negative Bedside Urine pH 7.0 Bedside Urine Protein - Negative Bedside Urine Urobilinogen - Negative Bedside Urine Nitrite - Negative Bedside Urine Leukocytes - Negative Esterase Imaging Data CT scan - abdomen/pelvis: Radiologist's Impression: Small urinary bladder cystocele. No hydronephrosis nor nephrolithiasis Colonic diverticulosis. And no findings to suggest diverticulitis Large amount of air and stool throughout the entire colon can present clinically as constipation MDM Narrative Medical decision making narrative: Patient feels better after her treatments provided here in the ER. The CT scan shows no acute findings except for a large stool burden which certainly could be causing her presenting symptoms today. She states that prior to the beginning of the year she was on MiraLax on a daily basis. She stop this earlier this year and seemed to be doing okay although she states that yesterday she did take MiraLax and had a small hard bowel movement. Had a discussion with her regarding the symptoms. Advise that she should start back on the laxatives to see if this helps her symptoms. There is no skin rash over the area that would be concerning for zoster. No indication for antibiotics. No indication for surgical consultation. I feel that we can hold on any further workup for now given the findings up to this point. She was given return precautions. She expressed understanding and agreement. Discharge Plan Departure Patient Disposition: Home Clinical Impression: Acute left flank pain, Constipation Instructions: DI for Constipation Activity Restrictions/Additional Instructions: I do recommend that you increase your fluid intake and also start back on the MiraLax like we discussed. Contact your primary doctor for a follow-up. Return to the emergency department for any new or worsening symptoms. Prescriptions: No Action MULTIVITAMIN (Multivitamin -) 1 cap PO EVERY DAY Qty: 0 lorazepam [Ativan] 0.5 MG tablet 0.25 mg PO PRN PRNQty: 0 apixaban [Eliquis] 5 MG tablet 5 mg Q12H Qty: 0 cyclobenzaprine 5 mg tablet 5 mg PO PRNQty: 0 verapamil 180 mg tablet extended release 120 mg PO Qty: 0 estradiol [Tasia] 0.05 mg/24 hr patch semiweekly See Rx Instructions .ROUTE .COMPLEX Qty: 24 3RF Dose Instruction: APPLY 1 PATCH TOPICALLY TO SKIN TWICE WEEKLY . PLEASE SCHEDULE APPOINTMENT FOR ADDITIONAL REFILLS Rx Instructions: APPLY 1 PATCH TOPICALLY TO SKIN TWICE WEEKLY . PLEASE SCHEDULE APPOINTMENT FOR ADDITIONAL REFILLS levothyroxine 25 mcg capsule 37.5 mcg PO DAILY vitamin B complex no.10-FA 400 mcg tablet extended release PO polyethylene glycol 3350 [Miralax] 17 gram/dose powder 17 gram PO DAILY acetaminophen [Tylenol Arthritis Pain] 650 mg tablet extended release 650 mg PO Q12H Referrals: Benito Morel MD [Primary Care Provider] - Visit Report Forms: Patient Portal/API
[2022-02-14] MEDS: HYDROMORPHONE 0.5 MG INJ IV (03:27)
[2022-02-14 03:31] VITALS: BP 149/87; PULSE 90; RESP 16; O2SAT 99
[2022-02-14 03:31] LABS: Add Manual Diff / Slide Review NO; Basophils Absolute Auto 0 /uL (0-100); Basophils Percent Auto 0.8 % (0-2); Eosinophils Absolute Auto 100 /uL (0-450); Eosinophils Percent Auto 2.8 % (2-4); Hematocrit 39.4 % (36-46); Hemoglobin 13.4 g/dL (12.0-16.0); Lymphocytes Absolute Auto 1500 /uL (1100-4500); Lymphocytes Percent Auto 34.9 % (25-40); Mean Corpuscular Hemoglobin 30.3 PG (26-34); Mean Corpuscular Volume 88.9 fL (80-100); Monocytes Absolute Auto 400 /uL (0-900); Monocytes Percent Auto 10.3 % (3-14); Neutrophils Absolute Auto 2200 /uL (1500-7000); Neutrophils Percent Auto 51.2 % (50-75); Platelet Count 197 X10^3/uL (150-400); Red Blood Cell Count 4.43 X10^6/uL (4.0-5.2); Red Cell Distribution Width 14.7 % (11.6-14.8); White Blood Cell Count 4.3 X10^3/uL (4.5-11.0)
--- NOTE | 2022-02-14 03:40 | PC.NURSE ---
see triage note
[2022-02-14 03:44] LABS: Alanine Aminotransferase 16 IU/L (<35); Albumin 4.8 g/dL (3.5-5.0); Albumin Globulin Ratio 1.5 (1.0-2.8); Alkaline Phosphatase 74 U/L (38-126); Aspartate Aminotransferase 30 IU/L (14-36); BUN Creatinine Ratio 22.6 (6-22); Bilirubin Total 0.5 mg/dL (0.2-1.3); Blood Urea Nitrogen 19 mg/dL (7-17); Calcium 9.3 mg/dL (8.4-10.2); Carbon Dioxide 30 mmol/L (22-32); Chloride 101 mmol/L (98-107); Estimated Glomerular Filt Rate > 60 mL/min (>60); Globulin 3.3 g/dL (1.7-4.1); Glucose 107 mg/dL (80-110); HEMOLYSIS < 15 (0-50); Lipase 83 U/L (23-300); Potassium 3.8 mmol/L (3.4-5.1); Sodium 138 mmol/L (137-145); Total Protein 8.1 g/dL (6.3-8.2)
[2022-02-14] MEDS: KETOROLAC 30 MG/ML VIAL IV (04:40)
== END 2022-02-14 05:37 | disposition home or self-care (01) ==
PROVIDERS: Emergency Provider Emergency Medicine; Family Provider Family Medicine; PCP Family Medicine
DX: R10.9 Unspecified abdominal pain (principal); K59.00 Constipation, unspecified
CPT/HCPCS: 36415; 74176; 80053; 81003; 83690; 85025; 96374; 96375; 99284; J1170; J1885

== ENCOUNTER 2022-08-03 16:57 | Emergency (ER) | payer MEDICARE, OTHER, SELFPAY ==
[2022-08-03 17:00] VITALS: BP 183/99; PULSE 89; RESP 14; TEMP 36.4; O2SAT 98; BMI 19.4
--- NOTE | 2022-08-03 17:04 | DI.CT.S_ITS ---
PROCEDURE: CT CERVICAL SPINE WO CON INDICATIONS: fall face first on cement,on eliquis TECHNIQUE: Noncontrast 3 mm thick sections acquired from the skull base to the T4 level. Sagittal and coronal reformats were then constructed. For radiation dose reduction, the following was used: automated exposure control, adjustment of mA and/or kV according to patient size. COMPARISON: [facility], CERVICAL SPINE 2 OR 3 VIEWS, 09/30/2012, 7:11. FINDINGS: Image quality: Excellent. Bones: No fractures or dislocations. Visualized superior ribs are intact. Similar degenerative changes. Soft tissues: Prevertebral soft tissues are normal in thickness. No paravertebral hematomas. No apical pneumothoraces. IMPRESSION: No acute finding. Dictated by: Damaso Linn M.D. on 08/03/2022 at 17:43 Approved by: Damaso Linn M.D. on 08/03/2022 at 17:44
--- NOTE | 2022-08-03 17:04 | DI.CT.S_ITS ---
PROCEDURE: CT HEAD/BRAIN WO CON INDICATIONS: fall face first on cement, on Eliquis TECHNIQUE: Noncontrast 4.5 mm thick angled axial sections acquired from the foramen magnum to the vertex, with coronal and sagittal reformats. For radiation dose reduction, the following was used: automated exposure control, adjustment of mA and/or kV according to patient size. COMPARISON: [facility], CT, CT HEAD/BRAIN WO CON, 07/18/2020, 10:56. FINDINGS: Image quality: Excellent. CSF spaces: Basal cisterns are patent. No extra-axial fluid collections. The ventricles are symmetric in size and shape. Brain: No intracranial bleeds or masses. There is cerebral volume loss for age, with resultant ventricular and sulcal prominence. There are periventricular and deep white matter chronic small vessel ischemic changes. There is intracranial internal carotid artery atherosclerosis. Skull and face: Calvarium and visualized facial bones appear intact, without suspicious lesions. Sinuses: Visualized sinuses and mastoids are clear. IMPRESSION: No acute intracranial abnormality. Dictated by: Damaso Linn M.D. on 08/03/2022 at 17:40 Approved by: Damaso Linn M.D. on 08/03/2022 at 17:42
--- NOTE | 2022-08-03 17:20 | DI.RAD.S_ITS ---
PROCEDURE: XR SHOULDER RT MIN 2V INDICATIONS: PAIN AFTER FALL TECHNIQUE: 3 views of the shoulder were acquired. COMPARISON: None. FINDINGS: Bones: Moderate acromioclavicular degenerative change. No fractures or dislocations. No suspicious bony lesions. Visualized ribs appear intact. Soft tissues: No suspicious soft tissue calcifications. IMPRESSION: Moderate acromioclavicular degenerative changes. No acute finding. Dictated by: Damaso Linn M.D. on 08/03/2022 at 17:39 Approved by: Damaso Linn M.D. on 08/03/2022 at 17:40
[2022-08-03 18:13] VITALS: BP 197/94; PULSE 75; RESP 16; O2SAT 97
[2022-08-03] MEDS: ONDANSETRON 4 MG ODT SL (18:51)
[2022-08-03] MEDS: TET,DIPH,PERTUSS(ACELL),VAC/PF 0.5 ML SYRINGE IM (18:52)
[2022-08-03] MEDS: ACETAMINOPHEN 325 MG TABLET 975 MG PO (18:52)
[2022-08-03] MEDS: BACITRACIN OINT 0.9 GM PCKT 1 APPLIC TOP (18:52)
--- NOTE | 2022-08-03 19:17 | ED.FALL ---
HPI - Fall <Annabel Renteria [facility] - Last Filed: 08/03/22 19:45> General Chief Complaint: Fall Stated Complaint: Fell, Hit head, On thinners Time Seen by Provider: 08/03/22 18:19 Source: patient Mode of arrival: Ambulatory History of Present Illness HPI Narrative: This is a 82-year-old female presents to the emergency department after she states she tripped on a concrete step outside and fell forward striking her forehead and her nose on concrete. She denies LOC, states she remembers the whole thing, complains of a mild headache afterwards and mild nausea but denies vomiting, neck pain, loss of consciousness, weakness, neck pain, sensation changes, vision changes, or altered mental status. Patient has a history of atrial fibrillation and is anticoagulated on Eliquis, does not remember when her last tetanus vaccination was, she unfortunately lost her on hospice 2 days ago. She denies any illness symptoms prior to her tripping and hitting her head. She is alert and oriented, came in by ambulance, has her family here at her bedside offering support. She moves all extremities, denies any numbness or tingling, has a contusion to the middle of her forehead with a small laceration versus puncture wound or abrasion to the bridge of her nose cause by her glasses she was wearing when she fell. Related Data Home Medications Medication Instructions Recorded Confirmed MULTIVITAMIN (Multivitamin 1 cap PO EVERY DAY ##0 04/02/10 11/30/21 -) apixaban 5 mg tablet (Eliquis) 5 mg Q12H ##0 08/08/16 11/30/21 lorazepam 0.5 mg tablet (Ativan) 0.25 mg PO PRN PRN ##0 08/08/16 11/30/21 cyclobenzaprine 5 mg tablet 5 mg PO PRN ##0 03/11/19 11/30/21 verapamil 180 mg tablet,extended 120 mg PO #0 tabs 03/11/19 11/30/21 release acetaminophen 650 mg 650 mg PO Q12H 06/30/20 11/30/21 tablet,extended release (Tylenol Arthritis Pain) levothyroxine 25 mcg capsule 37.5 mcg PO DAILY 06/30/20 11/30/21 polyethylene glycol 3350 17 17 gram PO DAILY 06/30/20 11/30/21 gram/dose oral powder (Miralax) vitamin Bcomplex no.10-folic acid mcg PO 06/30/20 11/30/21 ER 400 mcg tablet,extended release Previous Rx's Medication Instructions Recorded estradiol 0.05 mg/24 hr semiweekly See Rx Instructions .Route 11/30/21 transdermal patch (Tasia) .COMPLEX #24 patches chlorthalidone 25 mg tablet 25 mg PO DAILY #90 tabs 06/22/22 bacitracin 500 unit/gram topical 1 applic topical BID #28 grams 08/03/22 ointment diclofenac sodium 1 % topical gel 2 g topical QID #100 grams 08/03/22 hydrocodone 5 mg-acetaminophen 325 1 tab PO BID PRN pain #14 tabs 08/03/22 mg tablet lidocaine 5 % topical patch 1 patch topical DAILY #30 ea 08/03/22 lorazepam 0.5 mg tablet 0.25 - 0.5 mg PO BID PRN anxiety 08/03/22 #14 tabs magnesium oxide 420 mg tablet 420 mg PO BEDTIME #30 tabs 08/03/22 ondansetron 4 mg disintegrating 4 mg PO Q8H PRN nausea and 08/03/22 tablet vomiting #14 tabs Allergies Allergy/AdvReac Type Severity Reaction Status Date / Time Sulfa (Sulfonamide Allergy Intermediate RASH Verified 08/03/22 17:05 Antibiotics) [SULFA (SULFONAMIDE ANTIBIOTICS)] margot AdvReac Uncoded 11/30/21 10:17 Review of Systems <TIM Almeida - Last Filed: 08/03/22 19:45> Review of Systems Narrative: Review of systems is negative for acute abnormalities unless otherwise noted in HPI Patient History <TIM Almeida - Last Filed: 08/03/22 19:45> Medical History (Updated 08/03/22 @ 19:37 by TIM Almeida) Osteoarthritis of right knee Paroxysmal A-fib Surgical History History of bladder suspension procedure History of breast augmentation History of left hip replacement History of third molar tooth extraction History of tonsillectomy S/P total abdominal hysterectomy and bilateral salpingo-oophorectomy Status post appendectomy Status post laminectomy Family History Mother Osteoporosis Sister Osteoporosis Social History Smoking Status: Never smoker Smoking Status: Never smoker alcohol intake frequency: holidays/special occasions only Substance Use Type: does not use Exam <TIM Almeida - Last Filed: 08/03/22 19:45> Narrative Exam Narrative: Reviewed vitals signs and nursing notes. General: cooperative, comfortable, in no acute distress, well groomed, interactive, speech is clear, pleasant HEENT: symmetrical facial expressions, moist mucous membranes, hematoma and abrasion to her central forehead, no palpable skull depression, no tenderness over her orbital rim bilaterally, over her nasal bones or facial bones, no tenderness over TMJ, patient is able to open and close her mandible without pain, no intraoral injury, speech is clear, no tenderness to C-spine with palpation, EOMI, PERRLA bilaterally, small puncture wound versus abrasion across the bridge of her nose, nares are patent bilaterally Cardiovascular: Irregular rate and irregular rhythm, no peripheral edema, warm extremities Respiratory: normal effort, able to speak in complete sentences, without wheezing, stridor, or abnormal breath sounds. No retractions or tachypnea. GI: abdomen soft, nontender to palpation, nondistended, without masses, rebound tenderness or exquisite tenderness with exam. MSK: moves all extremities, neurovascularly intact, no weakness, normal tone, tenderness to the posterior right shoulder, pain is exacerbated with abduction, flexion,, range of motion is intact without deficit, radial pulses 2+, without elbow pain or wrist pain, tenderness to palpation near her scapula, no tenderness over the acromioclavicular joint or anterior shoulder Skin: brisk capillary refill, without pallor, injuries to face as described above without other extremity injury Neuro: normal speech and cognition, A&O x3, ambulatory, clear speech Psych: mental status is grossly normal, congruent mood, normal affect, pleasant and cooperative Initial Vital Signs Initial Vital Signs: Vital Signs Temperature 97.5 F L 08/03/22 17:00 Pulse Rate 89 08/03/22 17:00 Respiratory Rate 14 08/03/22 17:00 Blood Pressure 183/99 H 08/03/22 17:00 Pulse Oximetry 98 08/03/22 17:00 Oxygen Delivery Method 08/03/22 17:00 <Consuelo Maria MD - Last Filed: 08/04/22 03:35> Initial Vital Signs Initial Vital Signs: Vital Signs Temperature 97.5 F L 08/03/22 17:00 Pulse Rate 89 08/03/22 17:00 Respiratory Rate 14 08/03/22 17:00 Blood Pressure 183/99 H 08/03/22 17:00 Pulse Oximetry 98 08/03/22 17:00 Oxygen Delivery Method 08/03/22 17:00 Scores <TIM Almeida - Last Filed: 08/03/22 19:45> Delta CT Head Rule Age <16 years old: No Patient on blood thinners: Yes Seizure after injury: No Exclusion: Patient meets exclusion criteria GCS < 15 at 2 hr post trauma: No Suspected open or depressed skull fracture: No Any sign of basilar skull fracture (hemotympanum, raccoon eyes, Brown's sign, CSF twan-/rhinorrhea): No Two or more episodes of vomiting: No Age greater or equal to 65 years: Yes Retrograde amnesia to the event greater or equal to 30 min: No Dangerous Mechanism (pedestrian vs. mv, occupant ejected from mv, fall from >3 ft or > 5 stairs): No Recommendation: Consider CT. The Delta Head CT Rule cannot rule out need for Imaging. Nexus Score for C-Spine Focal Neurologic deficit present: No Midline spinal tenderness present: No Altered level of conciousness present: No Intoxication present: No Distracting Injury Present: No Nexus Criteria for C-spine: 0 <Consuelo Maria MD - Last Filed: 08/04/22 03:35> Delta CT Head Rule Exclusion: Patient meets exclusion criteria Recommendation: Consider CT. The Delta Head CT Rule cannot rule out need for Imaging. Nexus Score for C-Spine Nexus Criteria for C-spine: 0 Course <TIM Almeida - Last Filed: 08/03/22 19:45> Orders Ordered: Discontinued Medications Acetaminophen (Acetaminophen 325 Mg Tablet) 975 mg PO NOW ONE Stop: 08/03/22 18:40 Last Admin: 08/03/22 18:52 Dose: 975 mg Documented By: BT Hydrocodone Bitart/Acetaminophen (Hydrocodone/Acet 5/325 Prepack) 1 bottle MISC SEEINSTR ONE Stop: 08/03/22 18:40 Last Admin: 08/03/22 19:36 Dose: Not Given Documented By: LUIS MANUEL Bacitracin (Bacitracin Oint 0.9 Gm Pckt) 1 applic TOP NOW ONE Stop: 08/03/22 18:42 Last Admin: 08/03/22 18:52 Dose: 1 applic Documented By: CHAD Diphtheria/Tetanus/Acell Pertussis (Tet,Diph,Pertuss(Acell),Vac/Pf 0.5 Ml Syringe) 0.5 ml IM .ONCE ONE Stop: 08/03/22 18:40 Last Admin: 08/03/22 18:52 Dose: 0.5 ml Documented By: CHAD Lorazepam (Lorazepam 0.5 Mg Tablet) 0.5 mg PO NOW ONE Stop: 08/03/22 19:37 Last Admin: 08/03/22 19:49 Dose: 0.5 mg Documented By: LUIS MANUEL Ondansetron HCl (Ondansetron 4 Mg Odt) 4 mg SL NOW ONE Stop: 08/03/22 18:40 Last Admin: 08/03/22 18:51 Dose: 4 mg Documented By: CHAD Vital Signs Vital signs: Vital Signs - 8 hr 08/03/22 20:02 Pulse Rate 82 Respiratory Rate 18 Blood Pressure 185/86 H Pulse Oximetry 99 Oxygen Delivery Method Room Air <Consuelo Maria MD - Last Filed: 08/04/22 03:35> Orders Ordered: Discontinued Medications Acetaminophen (Acetaminophen 325 Mg Tablet) 975 mg PO NOW ONE Stop: 08/03/22 18:40 Last Admin: 08/03/22 18:52 Dose: 975 mg Documented By: CHAD Hydrocodone Bitart/Acetaminophen (Hydrocodone/Acet 5/325 Prepack) 1 bottle MISC SEEINSTR ONE Stop: 08/03/22 18:40 Last Admin: 08/03/22 19:36 Dose: Not Given Documented By: LUIS MANUEL Bacitracin (Bacitracin Oint 0.9 Gm Pckt) 1 applic TOP NOW ONE Stop: 08/03/22 18:42 Last Admin: 08/03/22 18:52 Dose: 1 applic Documented By: CHAD Diphtheria/Tetanus/Acell Pertussis (Tet,Diph,Pertuss(Acell),Vac/Pf 0.5 Ml Syringe) 0.5 ml IM .ONCE ONE Stop: 08/03/22 18:40 Last Admin: 08/03/22 18:52 Dose: 0.5 ml Documented By: BT Lorazepam (Lorazepam 0.5 Mg Tablet) 0.5 mg PO NOW ONE Stop: 08/03/22 19:37 Last Admin: 08/03/22 19:49 Dose: 0.5 mg Documented By: LUIS MANUEL Ondansetron HCl (Ondansetron 4 Mg Odt) 4 mg SL NOW ONE Stop: 08/03/22 18:40 Last Admin: 08/03/22 18:51 Dose: 4 mg Documented By: BT Vital Signs Vital signs: Vital Signs - 8 hr 08/03/22 20:02 Pulse Rate 82 Respiratory Rate 18 Blood Pressure 185/86 H Pulse Oximetry 99 Oxygen Delivery Method Room Air MDM - Fall <Annabel Renteria [facility] - Last Filed: 08/03/22 19:45> Imaging Data CT scan - head: Radiologist's Impression: PROCEDURE:? CT HEAD/BRAIN WO CON ? INDICATIONS:? fall face first on cement, on Eliquis ? TECHNIQUE:? Noncontrast 4.5 mm thick angled axial sections acquired from the foramen magnum to the vertex, with coronal and sagittal reformats.? For radiation dose reduction, the following was used:? automated exposure control, adjustment of mA and/or kV according to patient size.? ? COMPARISON:? [facility], CT, CT HEAD/BRAIN WO CON, 07/18/2020, 10:56. ? FINDINGS:? Image quality:? Excellent.? ? CSF spaces:? Basal cisterns are patent.? No extra-axial fluid collections.? The ventricles are symmetric in size and shape.? ? Brain:? No intracranial bleeds or masses.? There is cerebral volume loss for age, with resultant ventricular and sulcal prominence.? There are periventricular and deep white matter chronic small vessel ischemic changes.? There is intracranial internal carotid artery atherosclerosis.? ? Skull and face:? Calvarium and visualized facial bones appear intact, without suspicious lesions.? ? Sinuses:? Visualized sinuses and mastoids are clear.? ? IMPRESSION:? No acute intracranial abnormality. ? ? Dictated by: Damaso Linn M.D. on 08/03/2022 at 17:40 ? ? Approved by: Damaso Linn M.D. on 08/03/2022 at 17:42 ? Extremity x-ray #2: Radiologist's Impression: PROCEDURE:? XR SHOULDER RT MIN 2V ? INDICATIONS:? PAIN AFTER FALL ? TECHNIQUE:? 3 views of the shoulder were acquired.? ? COMPARISON:? None. ? FINDINGS:? ? Bones:? Moderate acromioclavicular degenerative change.? No fractures or dislocations.? No suspicious bony lesions.? Visualized ribs appear intact.? ? Soft tissues:? No suspicious soft tissue calcifications.? ? IMPRESSION:? ? Moderate acromioclavicular degenerative changes.? No acute finding. ? ? Dictated by: Damaso Linn M.D. on 08/03/2022 at 17:39 ? ? Approved by: Damaso Linn M.D. on 08/03/2022 at 17:40 ? CT - cervical spine: Radiologist's Impression: PROCEDURE:? CT CERVICAL SPINE WO CON ? INDICATIONS:? fall face first on cement,on eliquis ? TECHNIQUE:? Noncontrast 3 mm thick sections acquired from the skull base to the T4 level.? Sagittal and coronal reformats were then constructed.? For radiation dose reduction, the following was used:? automated exposure control, adjustment of mA and/or kV according to patient size.? ? COMPARISON:? [facility], , CERVICAL SPINE 2 OR 3 VIEWS, 09/30/2012, 7:11. ? FINDINGS:? Image quality:? Excellent.? ? Bones:? No fractures or dislocations.? Visualized superior ribs are intact.? Similar degenerative changes. ? Soft tissues:? Prevertebral soft tissues are normal in thickness.? No paravertebral hematomas.? No apical pneumothoraces.? ? ? IMPRESSION:? No acute finding. ? Dictated by: Damaso Linn M.D. on 08/03/2022 at 17:43 ? ? Approved by: Damaso Linn M.D. on 08/03/2022 at 17:44 ? MDM Narrative Medical decision making narrative: This is a pleasant 82-year-old female with history of atrial fibrillation is anticoagulated Eliqu who presents to emergency department after a mechanical fall after tripping on a step and falling forward striking her forehead on concrete. She did not have a loss of consciousness, vomiting, denies neck pain, and denies worsening headache or vision changes. CT of her cervical spine and head without contrast does not show any acute findings, hemorrhage, her right shoulder is tender over the posterior rotator cuff and is exacerbated with abduction and flexion. She has normal range of motion without deficit and movement is limited only due to pain. Shoulder x-ray of the right shoulder shows moderate acromioclavicular degenerative changes without acute finding. She was fitted in a sling, given Tylenol, and hydrocodone as needed for her pain. Patient's blood pressure was elevated throughout her visit in the emergency department, she takes verapamil but this is concerning for uncontrolled hypertension. 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 She had a PCP appointment with Dr. Maldonado scheduled for the day that he and she had to cancel this. Patient has abrasions to her face without a laceration requiring repair, slough tissue was debrided, wound was cleaned with normal saline, patient tolerated well and bacitracin with Band-Aid was applied. Her lab work overall is unremarkable, she is without anemia, leukocytosis, electrolyte abnormalities or other remarkable finding. Patient has positive support with her today, she is without mental status changes, weakness, sensation changes, palpitations or other. I think that it is likely she has a concussion, I encouraged her to schedule follow-up with Dr. Maldonado, use Tylenol as needed for aches and pains, gave her a prescription of topical diclofenac gel and lorazepam as she states she is used this in the past to help her sleep. Encourage patient to follow-up with Joel for a referral to physical therapy for her right shoulder pain, she may need an evaluation for Orthopedics for posterior rotator cuff. #415 - Emergency Medicine: Utilization of CT for Minor Blunt Head Trauma (Adult) [] Patient is 18 or older, presenting with minor blunt head trauma. Head CT (including cosigned orders) was ordered by an emergency care assistant for trauma because (select one or more): [SATISFIES MIPS PERFORMANCE] Reasons: [x] Patient is 65 or older [x] Patient GCS < 15 [] Patient has focal neurologic deficit [] Patient has severe headache [] Patient is vomiting [] Severe/dangerous mechanism of injury was identified (select one or more): []MVA with: patient ejection, of another passenger, rollover, speed > 40mph, airbag deployment, bus driver supervisor or passenger on ATV or motorcycle [] pedestrian or bicyclist without helmet: struck my motorized vehicle, in bicycle crash [] fall > 3 feet or 5 stairs [] head struck by high-impact object (hammer, baseball, baseball bat, heavy object such as falling brick) [] Other: [] (ie. assault description) [] Patient has physical signs of basilar skull fracture present (including hemotympanum, ?raccoon? eyes, CSF leakage from ear or nose, Brown?s sign) [] Patient suspected of taking anticoagulant medication [] Patient has thrombocytopenia [] Patient has coagulopathy [] Patient has loss of consciousness and (must select one of the following): []Headache []Short term memory deficit []Alcohol/drug intoxication []Evidence of trauma above the clavicles []Age 60 or older [] Post-traumatic seizure [] Patient has post-traumatic amnesia and (must select one of the following): []Headache []Short term memory deficit []Alcohol/drug intoxication []Evidence of trauma above the clavicles Page 3 of 3 2020 Performance Year Rev. 2.2.21 Version 3 [x]Age 60 or older [] Post-traumatic seizure [] Patient conditions that are excluded (select all that apply): [] Patient has ventricular shunt [] Patient has brain tumor [] Patient is [] Patient has multi-system trauma [x] Patient taking an antiplatelet medication (excluding aspirin) [] Head CT not ordered by emergency care assistant [] Head CT ordered for reasons other than trauma [] Patient is 18 or older, presenting with minor blunt head trauma. Head CT (including cosigned orders) was ordered by an emergency care assistant for trauma, no indication specified. [DOES NOT SATISFY MIPS PERFORMANCE] Discharge Plan Departure Patient Disposition: Home Clinical Impression: Fall (on) (from) other stairs and steps, initial encounter, Hypertension, uncontrolled Closed head injury Qualifiers: Encounter type: initial encounter Qualified Code(s): S09.90XA - Unspecified injury of head, initial encounter Traumatic hematoma of forehead Qualifiers: Encounter type: initial encounter Qualified Code(s): S00.83XA - Contusion of other part of head, initial encounter Injury of shoulder, right Qualifiers: Encounter type: initial encounter Qualified Code(s): S49.91XA - Unspecified injury of right shoulder and upper arm, initial encounter Concussion Qualifiers: Encounter type: initial encounter Loss of consciousness presence/duration: without LOC Qualified Code(s): S06.0X0A - Concussion without loss of consciousness, initial encounter Laceration of nose Qualifiers: Encounter type: initial encounter Qualified Code(s): S01.21XA - Laceration without foreign body of nose, initial encounter Instructions: Concussion, Closed Head Injury, Rotator Cuff Injury, Post-Traumatic Headache Activity Restrictions/Additional Instructions: Tripping on a step which caused a fall with a close head injury. I think it is very likely you have a concussion,, please rest frequently for the next few days and any time you have symptoms of concussion including difficulty concentrating, brain fog, headache, mild nausea, fatigue, sensitivity to sound and light. Please apply bacitracin or another antibiotic ointment to on your face as needed. [facility], please have your prescriptions picked up for you so you can go home and rest. Please focus on hydration, use ice packs for your right shoulder and for your forehead frequently over the next few days. It is okay to take Tylenol 650 mg every 6-8 hours as needed, and hydrocodone in addition to the as needed. I hope that you start feeling better soon, my sincere condolences about your , I wish you pleasant memories and am glad that you have a supportive and loving family. Please let people wait on you instead of you taking care of everyone else during this time. You have worsening headache, vision changes, or started vomiting, please call an ambulance and come back to the emergency department. If you develop altered mental status, difficulty walking or behaving abnormally, please also come back to the emergency department. Injuries from whiplash tend to get worse over the next 2 days, you might find increased shoulder pain, trapezius pain, or neck pain. Please use heat as needed, Tylenol and topical agents like lidocaine patches or diclofenac gel. See if this can be helpful for aches and pains. Please follow-up with Dr. Maldonado, ask him for a referral to physical therapy and schedule an appointment at [facility] for follow-up for your right shoulder in 1 week or more, especially if it is worsening. It is okay to call Dr. Medina for an appointment since you have history with him, but I want to rule out rotator cuff etiology 1st and make sure that it heals nice. *What to do: *Please continue to take your regular medications as directed. [x ] New medication prescriptions sent to your pharmacy: [[facility]] [ ] New medication written as a paper prescription [ ] No new medications given *Please follow up with your primary care provider in 2-3 days, call for an appointment. Let them know you were seen in the Emergency Department and that we asked that you be seen for follow-up. We will electronically transmit a record of today's note if your PCP is in our system *If you do not have a primary care provider please contact [phone] to establish care with one of the [facility] primary care providers. *Return to Emergency Department if you should have any new, worsening, or concerning symptoms, such as [fever greater than 101F, chills, worsening pain, persistent vomiting or other bothersome symptoms]. Prescriptions: New ondansetron 4 mg tablet,disintegrating 4 mg PO Q8H PRN (Reason: nausea and vomiting) Qty: 14 0RF hydrocodone-acetaminophen 5-325 mg tablet 1 tab PO BID PRN (Reason: pain) Qty: 14 0RF magnesium oxide 420 mg tablet 420 mg PO BEDTIME Qty: 30 0RF diclofenac sodium 1 % gel 2 g topical QID Qty: 100 0RF Rx Instructions: apply to single area of pain up to 4 times daily lidocaine 5 % adhesive patch,medicated 1 patch topical DAILY Qty: 30 0RF Rx Instructions: leave on most painful area for up to 12 hrs lorazepam 0.5 mg tablet 0.25 - 0.5 mg PO BID PRN (Reason: anxiety) Qty: 14 0RF bacitracin 500 unit/gram ointment 1 applic topical BID Qty: 28 0RF No Action MULTIVITAMIN (Multivitamin -) 1 cap PO EVERY DAY Qty: 0 lorazepam [Ativan] 0.5 MG tablet 0.25 mg PO PRN PRNQty: 0 apixaban [Eliquis] 5 MG tablet 5 mg Q12H Qty: 0 cyclobenzaprine 5 mg tablet 5 mg PO PRNQty: 0 verapamil 180 mg tablet extended release 120 mg PO Qty: 0 chlorthalidone 25 mg tablet 25 mg PO DAILY Qty: 90 3RF estradiol [Tasia] 0.05 mg/24 hr patch semiweekly See Rx Instructions .ROUTE .COMPLEX Qty: 24 3RF Dose Instruction: APPLY 1 PATCH TOPICALLY TO SKIN TWICE WEEKLY . PLEASE SCHEDULE APPOINTMENT FOR ADDITIONAL REFILLS Rx Instructions: APPLY 1 PATCH TOPICALLY TO SKIN TWICE WEEKLY . PLEASE SCHEDULE APPOINTMENT FOR ADDITIONAL REFILLS levothyroxine 25 mcg capsule 37.5 mcg PO DAILY vitamin B complex no.10-FA 400 mcg tablet extended release PO polyethylene glycol 3350 [Miralax] 17 gram/dose powder 17 gram PO DAILY acetaminophen [Tylenol Arthritis Pain] 650 mg tablet extended release 650 mg PO Q12H Referrals: [facility] [Provider Group] Everton Medina DO [Physician] - Benito Morel MD [Primary Care Provider] - Everton Maldonado MD [Physician] - Visit Report Forms: Patient Portal/API <Consuelo Maria MD - Last Filed: 08/04/22 03:35> Cosign ED Attending Cosignature Attestation: I was immediately available in the department for consultation throughout this patient's visit. I agree with documentation as above. Consuelo Maria MD
[2022-08-03] MEDS: LORazepam 0.5 MG TABLET PO (19:49)
--- NOTE | 2022-08-03 20:01 | PC.NURSE ---
wound cleansed, bandage with bacitracin
[2022-08-03 20:02] VITALS: BP 185/86; PULSE 82; RESP 18; O2SAT 99
== END 2022-08-03 20:02 | disposition home or self-care (01) ==
PROVIDERS: Emergency Provider Nurse Practitioner Critical Care Medicine; Family Provider Family Medicine; PCP Family Medicine
DX: S06.0X0A Concussion without loss of consciousness, initial encounter (principal); S49.91XA Unspecified injury of right shoulder and upper arm, initial encounter; S00.83XA Contusion of other part of head, initial encounter; I10 Essential (primary) hypertension; W10.9XXA Fall (on) (from) unspecified stairs and steps, initial encounter; I48.20 Chronic atrial fibrillation, unspecified; Z79.01 Long term (current) use of anticoagulants; Z23 Encounter for immunization
CPT/HCPCS: 70450; 72125; 73030; 90471; 99285; 90715

== ENCOUNTER → 2022-08-22 15:20 | Outpatient (CLI) | payer MEDICARE, OTHER, SELFPAY ==
--- NOTE | 2022-08-22 15:34 | DI.RAD.S_ITS ---
PROCEDURE: XR KNEE RT 3V INDICATIONS: RT. KNEE PAIN TECHNIQUE: 3 views of the knee were acquired. COMPARISON: [facility], CR, XR KNEE 4+ VIEWS RIGHT, 06/28/2021, 13:30. [facility], CR, KNEE 3V RIGHT, 12/22/2009, 13:02. [facility], CR, KNEE 3V LEFT, 12/22/2009, 13:01. FINDINGS: Bones: Right knee total arthroplasty is stable in appearance. No periprosthetic lucency to suggest loosening or infection. No fractures or dislocations. No suspicious bony lesions. Soft tissues: No joint effusion. No suspicious soft tissue calcifications. IMPRESSION: Stable appearance of the right knee arthroplasty. Dictated by: Michele Singh M.D. on 08/22/2022 at 16:00 Approved by: Michele Singh M.D. on 08/22/2022 at 16:01
== END ==
PROVIDERS: Family Provider Family Medicine; PCP Family Medicine; Referring Provider Family Medicine; Visit Provider Family Medicine
DX: M25.561 Pain in right knee (principal); Z96.651 Presence of right artificial knee joint
CPT/HCPCS: 73562

== ENCOUNTER → 2023-01-03 10:37 | Outpatient (CLI) | payer MEDICARE, OTHER, SELFPAY ==
--- NOTE | 2023-01-03 | DI.MG.S_ITS ---
BILATERAL DIGITAL SCREENING MAMMOGRAM 3D/2D WITH CAD WITH AUGMENTATION: 01/03/2023 CLINICAL: Routine screening. Comparison is made to exams dated: 01/02/2022 mammogram, 12/13/2020 mammogram, and 10/09/2019 mammogram - [facility]. There are scattered areas of fibroglandular density in both breasts (category b / 25%-50% glandular tissue). Current study was also evaluated with a Computer Aided Detection (CAD) system. Bilateral breast implants are stable. No significant masses, calcifications, or other findings are seen in either breast. There has been no significant interval change. IMPRESSION: NEGATIVE There is no mammographic evidence of malignancy. A 1 year screening mammogram is recommended. Based on the Tyrer Cuzick model (a risk assessment model) the patient's lifetime risk is 0.7% and her 10 year risk is 0.0%. According to the ACR, ACS, and NCCN guidelines, an annual breast MRI exam along with mammogram is recommended if the patient's lifetime risk is 20% or greater. This exam was interpreted at Station ID: [id number]. NOTE: For mammograms, a report in lay terms will be sent to the patient. Approximately 15% of breast malignancies will not be visualized mammographically. In the management of a palpable breast mass, a negative mammogram must not discourage biopsy of a clinically suspicious lesion. Electronically Signed By: Beka rasmussen/sal:01/03/2023 17:14:28 copy to: Marlena Layne letter sent: Normal Exam ACR BI-RADS Category 1: Negative [id number]
--- NOTE | 2023-01-03 10:51 | DI.DEXA.S_ITS ---
Bone Density Report Name: LUAN ROUSE Age: 82 Sex: Female Ethnicity: White Date of : 1940 Indication: postmenopausal; screening for osteoporosis; Referring Provider: THOMAS MOFFETT Study: Bone densitometry was performed. Exam Date: January 03, 2023 Accession number: [id number] Bone Density: Region BMD T-score Z-score Classification AP Spine(L1-L4) 1.262 2.0 4.7 Normal Femoral Neck (Right) 0.821 -0.2 2.1 Normal Total Hip (Right) 0.927 -0.1 2.0 Normal Total Forearm (Left) 0.491 -1.6 1.6 Osteopenia 1/3 Forearm (Left) 0.690 -0.1 3.2 Normal UD Forearm (Left) 0.336 -1.8 0.5 Osteopenia World Health Organization criteria for BMD impression classify patients as: Normal (T-score at or above -1.0), Osteopenia (T-score between -1.0 and -2.5), or Osteoporosis (T-score at or below -2.5). 10-year Fracture Risk: FRAX not reported because: All T-scores for Spine Total, Hip Total, Femoral Neck at or above -1.0 Previous Exams: -- Region Exam Age BMD T-score BMD Change BMD Change Date g/cm2 vs Baseline vs Previous -- AP Spine (L1-L4) 01/03/2023 82 1.262 2.0 -0.001 (-0.1%)# -0.001 (-0.1%)# 12/13/2020 80 1.263 2.0 Total Hip(Right) 01/03/2023 82 0.927 -0.1 0.049 (5.5%)# 0.049 (5.5%)# 12/13/2020 80 0.878 -0.5 -- *Denotes significance at 95% confidence level, LSC for AP Spine = 0.022 g/cm2, LSC for Total Hip = 0.027 g/cm2 # Denotes dissimilar scan types or analysis methods Impression: The patient has normal bone mass. No significant bone loss was observed. Discussion: LOW RISK OF FRACTURE; BONE DENSITY IS WELL ABOVE THE MINIMUM DESIRABLE LEVEL AND ABOVE AVERAGE FOR AGE AND SEX AT ALL SKELETAL SITES TESTED. This person's bone density is above expected limits for age and sex. This is rarely clinically significant, but should be pursued if there are significant musculoskeletal complaints. The patient should follow a healthful lifestyle (good nutrition with adequate calcium and vitamin D, and appropriate weight-bearing exercise). Follow-Up: Consider repeating this study in 5 years or sooner if there is some new clinical indication. Reported by: ABEBE PEREZ MD on 01/03/2023 11:06:00 AM.
== END ==
PROVIDERS: Family Provider Family Medicine; PCP Family Medicine; Referring Provider Family Medicine; Visit Provider Family Medicine
DX: Z12.31 Encounter for screening mammogram for malignant neoplasm of breast (principal); Z78.0 Asymptomatic menopausal state; Z13.820 Encounter for screening for osteoporosis; Z92.23 Personal history of estrogen therapy
CPT/HCPCS: 77063; 77067; 77080

== ENCOUNTER → 2023-01-10 11:55 | Outpatient (CLI) | payer MEDICARE, OTHER, SELFPAY ==
--- NOTE | 2023-01-10 | DI.RAD.S_ITS ---
PROCEDURE: XR CERVICAL SPINE 2V OR 3V INDICATIONS: Cervicalgia TECHNIQUE: 3 view(s) of the cervical spine were acquired. COMPARISON: None. FINDINGS: Bones: No fractures or dislocations to the T1 level. Multilevel disc space narrowing and endplate osteophyte formation, as well as facet hypertrophy. The lateral masses of C1 appear intact on the odontoid view. No suspicious bony lesions. Soft tissues: No prevertebral soft tissue swelling. IMPRESSION: Multilevel degenerative disc and facet disease. No acute fracture. No osseous lesion. If symptoms and/or clinical suspicion for pathology persist, further assessment with repeat, or advanced imaging (e.g., CT, MRI, or bone scan) may be helpful for further assessment. Dictated by: Jayro Herrera M.D. on 01/10/2023 at 14:15 Transcribed by: ANAHI on 01/10/2023 at 14:16 Approved by: Jayro Herrera M.D. on 01/10/2023 at 16:22
== END ==
PROVIDERS: Family Provider Family Medicine; PCP Family Medicine; Referring Provider Family Medicine; Visit Provider Family Medicine
DX: M47.892 Other spondylosis, cervical region (principal); M50.30 Other cervical disc degeneration, unspecified cervical region
CPT/HCPCS: 72040

== ENCOUNTER 2023-04-11 10:23 | Emergency (ER) | payer MEDICARE, OTHER, SELFPAY ==
[2023-04-11] VITALS (8 sets, daily range): BP systolic 187–209; BP diastolic 84–95; PULSE 72–89; RESP 15; TEMP 36.7; O2SAT 92–100; BMI 19.4
--- NOTE | 2023-04-11 10:40 | DI.CT.S_ITS ---
PROCEDURE: CT HEAD/BRAIN WO CON INDICATIONS: fall on eliquis TECHNIQUE: Noncontrast 4.5 mm thick angled axial sections acquired from the foramen magnum to the vertex, with coronal and sagittal reformats. For radiation dose reduction, the following was used: automated exposure control, adjustment of mA and/or kV according to patient size. COMPARISON: [facility], CT, CT HEAD/BRAIN WO CON, 08/03/2022, 17:10. FINDINGS: Image quality: Excellent. CSF spaces: Basal cisterns are patent. No extra-axial fluid collections. The ventricles are symmetric in size and shape. Brain: No intracranial bleeds or masses. There is cerebral volume loss for age, with resultant ventricular and sulcal prominence. There are moderate periventricular and deep white matter chronic small vessel ischemic changes. There is intracranial internal carotid artery atherosclerosis. Skull and face: Calvarium and visualized facial bones appear intact, without suspicious lesions. Sinuses: Visualized sinuses and mastoids are clear. IMPRESSION: 1. No acute intracranial process. 2. Age-related volume loss and moderate small vessel ischemic change, within normal limits for patient age. Dictated by: Marlon Alexander M.D. on 04/11/2023 at 11:35 Approved by: Marlon Alexander M.D. on 04/11/2023 at 11:39
--- NOTE | 2023-04-11 10:40 | DI.CT.S_ITS ---
PROCEDURE: CT LUMBAR SPINE WO CON INDICATIONS: fall on eliquis TECHNIQUE: Noncontrast 3 mm thick sections acquired from the T12 level to the sacrum. Sagittal and coronal reformats were constructed. For radiation dose reduction, the following was used: automated exposure control. COMPARISON: None. FINDINGS: Image quality: Excellent. Bones: Convex right thoracolumbar scoliosis without vertebral anomaly. L3 anterior wedge-shaped compression fracture with less than 10 percent height loss and no retropulsed fracture fragment. No suspicious lytic or blastic bony lesions. No pars defects. T12-L1: Disc space narrowing present. No central or foraminal stenosis L1-L2: Disc space narrowing with disc bulge and vacuum disc phenomena. Mild central stenosis. Moderate left and no right foraminal stenosis L2-L3: Disc space narrowing and circumferential disc bulge results in mild central stenosis. Hypertrophic facet joints contribute to moderate left and no right foraminal stenosis. L3-L4: Disc space narrowing with circumferential disc bulge and hypertrophic facet joints combined result in mild to moderate central stenosis. No right and moderate left foraminal stenosis. L4-L5: Disc space narrowing and circumferential disc bulge with hypertrophic facet joints and ligamentum flavum laxity combined result in moderate central stenosis. Severe right and moderate left foraminal stenosis L5-S1: Disc space narrowing and circumferential disc bulge with hypertrophic facet joints results in mild central stenosis. Moderate bilateral foraminal stenosis Soft tissues: No retroperitoneal masses or hematomas. Visualized aorta is normal in caliber. IMPRESSION: Multilevel degenerative disc disease and arthropathy results in varying degrees of central and foraminal stenosis including moderate central stenosis L4-5. Degenerative thoracolumbar dextroscoliosis Approved by: Jerrod Nicole M.D. on 04/11/2023 at 10:41
--- NOTE | 2023-04-11 10:40 | DI.CT.S_ITS ---
PROCEDURE: CT CERVICAL SPINE WO CON INDICATIONS: fall on eliquis TECHNIQUE: Noncontrast 3 mm thick sections acquired from the skull base to the T4 level. Sagittal and coronal reformats were then constructed. For radiation dose reduction, the following was used: automated exposure control, adjustment of mA and/or kV according to patient size. COMPARISON: [facility], CT, CT CERVICAL SPINE WO CON, 08/03/2022, 17:10. FINDINGS: Image quality: Excellent. Bones: No fractures or dislocations. Visualized superior ribs are intact. Severe cervical spondylosis with prominent multilevel facet arthropathy. There is chronic disc space loss and uncovertebral joint hypertrophy at C6-C7 with bilateral bony foraminal narrowing. There is also bilateral bony foraminal narrowing on the left at C3-C4 and C4-C5 and C5-C6.. Soft tissues: Prevertebral soft tissues are normal in thickness. No paravertebral hematomas. No apical pneumothoraces. IMPRESSION: 1. No acute cervical fracture or dislocation. 2. Severe cervical spondylosis. Dictated by: Marlon Alexander M.D. on 04/11/2023 at 11:39 Approved by: Marlon Alexander M.D. on 04/11/2023 at 11:42
[2023-04-11 11:51] LABS: Appearance Urine UA CLEAR; Bilirubin Urine UA NEGATIVE (NEGATIVE); Color Urine UA YELLOW; Glucose Urine UA NEGATIVE (Negative); Ketones Urine UA NEGATIVE (NEGATIVE); Leukocyte Esterase Urine UA TRACE (NEGATIVE); Nitrite Urine UA NEGATIVE (Negative); Occult Blood Urine UA NEGATIVE (Negative); Protein Urine UA NEGATIVE (Negative); Urobilinogen Urine UA 0.2 E.U./dL (0.2)
[2023-04-11 11:55] LABS: Bacteria Urine Many (>30); Culture Indicated Urine Specimen Cultured; RBC Urine None Seen (0-5/HPF); Squamous Epithelial Cell Urine 0-1 /HPF (0-5/HPF); WBC Urine 1-5/HPF (0-5/HPF)
--- NOTE | 2023-04-11 13:27 | DI.MRI.S_ITS ---
PROCEDURE: MR HEAD/BRAIN WO CON INDICATIONS: Ataxia TECHNIQUE: Non-contrast axial T1 spin echo, axial T2 fast spin echo, sagittal and axial FLAIR, coronal T2 fast spin echo, axial gradient echo, axial diffusion and ADC through the brain. COMPARISON: [facility], CR, XR DEXA AXIAL SKELETON, 01/03/2023, 10:[address] [facility], MR, MR STROKE, 07/18/2020, 13:26. [facility], CT, CT HEAD/BRAIN WO CON, 04/11/2023, 11:16. FINDINGS: Image quality: This examination is limited by involuntary motion artifact. CSF spaces: Ventricles appear symmetric in size and shape. Basal cisterns are patent. No extra-axial fluid collections. Brain: No intracranial mass effects. Hemosiderin deposition can be seen within the region of the medial portion of the left lateral ventricle, as on series 11, image 11. There is cerebral volume loss for age. There are periventricular and deep white matter chronic small vessel ischemic changes. Brainstem appears normal. Diffusion-weighted images show no acute ischemic insults. No chronic ischemic insults. Normal intravascular flow voids are present. Skull and face: Calvarial bone marrow is normal in signal. Orbits are normal. Sinuses: Sinuses and mastoids are clear. IMPRESSION: No findings of acute or subacute infarction can be seen. Hemosiderin deposition can be seen along the medial aspect of the left lateral ventricle. This is new compared to 2019. No similar finding can be seen on the head CT performed earlier in the earlier in the day. Dictated by: Dragan Shaffer M.D. on 04/11/2023 at 13:40 Approved by: Dragan Shaffer M.D. on 04/11/2023 at 13:48
[2023-04-11 13:51] LABS: Add Manual Diff / Slide Review NO; Basophils Absolute Auto 100 /uL (0-100); Basophils Percent Auto 1.7 % (0-2); Eosinophils Absolute Auto 100 /uL (0-450); Eosinophils Percent Auto 1.9 % (2-4); Hematocrit 36.1 % (36-46); Hemoglobin 12.4 g/dL (12.0-16.0); Lymphocytes Absolute Auto 1400 /uL (1100-4500); Mean Corpuscular HGB Conc 34.3 % (30-36); Mean Corpuscular Hemoglobin 30.8 PG (26-34); Mean Corpuscular Volume 89.8 fL (80-100); Monocytes Absolute Auto 600 /uL (0-900); Monocytes Percent Auto 10.7 % (3-14); Neutrophils Absolute Auto 3200 /uL (1500-7000); Neutrophils Percent Auto 59.7 % (50-75); Platelet Count 249 X10^3/uL (150-400); Red Blood Cell Count 4.02 X10^6/uL (4.0-5.2); Red Cell Distribution Width 14.2 % (11.6-14.8); White Blood Cell Count 5.4 X10^3/uL (4.5-11.0)
[2023-04-11 14:01] LABS: Alanine Aminotransferase 19 IU/L (<35); Albumin 4.5 g/dL (3.5-5.0); Albumin Globulin Ratio 1.3 (1.0-2.8); Alkaline Phosphatase 81 U/L (38-126); Aspartate Aminotransferase 29 IU/L (14-36); BUN Creatinine Ratio 19.7 (6-22); Bilirubin Total 0.5 mg/dL (0.2-1.3); Blood Urea Nitrogen 13 mg/dL (7-17); Calcium 9.1 mg/dL (8.4-10.2); Carbon Dioxide 29 mmol/L (22-32); Chloride 98 mmol/L (98-107); Creatine Kinase 143 U/L (30-135); Estimated Glomerular Filt Rate > 60 mL/min (>60); Globulin 3.4 g/dL (1.7-4.1); Glucose 80 mg/dL (80-110); HEMOLYSIS < 15 (0-50); Potassium 3.6 mmol/L (3.4-5.1); Sodium 134 mmol/L (137-145); Total Protein 7.9 g/dL (6.3-8.2)
[2023-04-11 14:13] LABS: Troponin I < 0.012 ng/mL (0.01-0.034)
--- NOTE | 2023-04-11 14:13 | ED_ITS ---
HPI - Fall General Chief Complaint: Fall Stated Complaint: fall, head injury, per pt is on blood thinners Time Seen by Provider: 04/11/23 12:43 Source: patient Mode of arrival: Ambulatory History of Present Illness HPI Narrative: Patient here with daughter. Has different complaints. Patient complains of right sided back pain that radiates down to her foot. Worse with sitting. Improves with walking. No known injury. Patient states this started about 2 weeks ago. Patient has history of degenerative disc disease. History diskecto my in the late 1970s. Has had off and on back pain since then. Has had sciatica on the left and right side. Patient saw her primary care last and was given a Toradol shot and prescription for gabapentin. She took gabapentin Sunday, it did not seem to help a lot. It did make her feel woozy and hard to focus and concentrate. She stopped taking this medication because Sunday night she got up to go the bathroom and felt off balance and fell backwards. She hit her head against the wall. No loss of consciousness. She is on Eliquis for atrial fibrillation. Patient has stopped taking gabapentin since the fall. She states that today during physical therapy for arm she is been feeling very foggy with her thoughts. No slurred speech facial droop. Fast exam is negative Related Data Home Medications Medication Instructions Recorded Confirmed MULTIVITAMIN (Multivitamin 1 cap PO EVERY DAY ##0 04/02/10 11/30/21 -) apixaban 5 mg tablet (Eliquis) 5 mg Q12H ##0 08/08/16 11/30/21 lorazepam 0.5 mg tablet (Ativan) 0.25 mg PO PRN PRN ##0 08/08/16 11/30/21 cyclobenzaprine 5 mg tablet 5 mg PO PRN ##0 03/11/19 11/30/21 verapamil 180 mg tablet,extended 120 mg PO #0 tabs 03/11/19 11/30/21 release acetaminophen 650 mg 650 mg PO Q12H 06/30/20 11/30/21 tablet,extended release (Tylenol Arthritis Pain) levothyroxine 25 mcg capsule 37.5 mcg PO DAILY 06/30/20 11/30/21 polyethylene glycol 3350 17 17 gram PO DAILY 06/30/20 11/30/21 gram/dose oral powder (Miralax) vitamin Bcomplex no.10-folic acid mcg PO 06/30/20 11/30/21 ER 400 mcg tablet,extended release Previous Rx's Medication Instructions Recorded chlorthalidone 25 mg tablet 25 mg PO DAILY #90 tabs 06/22/22 bacitracin 500 unit/gram topical 1 applic topical BID #28 grams 08/03/22 ointment diclofenac sodium 1 % topical gel 2 g topical QID #100 grams 08/03/22 hydrocodone 5 mg-acetaminophen 325 1 tab PO BID PRN pain #14 tabs 08/03/22 mg tablet lidocaine 5 % topical patch 1 patch topical DAILY #30 ea 08/03/22 lorazepam 0.5 mg tablet 0.25 - 0.5 mg PO BID PRN anxiety 08/03/22 #14 tabs magnesium oxide 420 mg tablet 420 mg PO BEDTIME #30 tabs 08/03/22 ondansetron 4 mg disintegrating 4 mg PO Q8H PRN nausea and 08/03/22 tablet vomiting #14 tabs estradiol 0.05 mg/24 hr semiweekly See Rx Instructions .Route 01/15/23 transdermal patch (Tasia) .COMPLEX #24 patches cephalexin 500 mg capsule 500 mg PO BID #6 caps 04/11/23 Allergies Allergy/AdvReac Type Severity Reaction Status Date / Time Sulfa (Sulfonamide Allergy Intermediate RASH Verified 04/11/23 10:28 Antibiotics) [SULFA (SULFONAMIDE ANTIBIOTICS)] margot AdvReac Uncoded 11/30/21 10:17 Review of Systems Review of Systems Narrative: GENERAL: negative chills, fatigue, malaise, fever, sweats. HEENT: negative sinus pain, ear pain, sore throat RESPIRATORY: negative dyspnea, cough CARDIOVASCULAR: negative chest pain, palpitations GASTROINTESTINAL: negative nausea, vomiting, abdominal pain : negative dysuria, frequency, hematuria MUSCULOSKELETAL: Positive back/muscle or bony pain SKIN: negative rash, skin lesions NEUROLOGIC: negative weakness, numbness, positive altered mental status/confusion, negative slurred speech negative facial droop ROS Unobtainable: All systems reviewed & are unremarkable except as noted in HPI and below Patient History Medical History (Updated 04/26/23 @ 00:00 by ) Osteoarthritis of right knee Paroxysmal A-fib Surgical History History of bladder suspension procedure History of breast augmentation History of left hip replacement History of third molar tooth extraction History of tonsillectomy S/P total abdominal hysterectomy and bilateral salpingo-oophorectomy Status post appendectomy Status post laminectomy Family History Mother Osteoporosis Sister Osteoporosis Social History Smoking Status: Never smoker Smoking Status: Never smoker alcohol intake frequency: holidays/special occasions only Substance Use Type: does not use Exam Narrative Exam Narrative: GENERAL: in no distress, not toxic not dyspneic HEAD: Normocephalic. Atraumatic. Nontender scalp and skull and occiput. No edema EYES: Pupils equal round ENT: Mucous membranes moist. NECK: Trachea midline. No midline tenderness or step-off of the cervicothoracic or lumbar spine CARDIOVASCULAR: Regular rate and rhythm RESPIRATORY: Clear to auscultation. Breath sounds equal bilaterally. No wheezes, rales, or rhonchi. GASTROINTESTINAL: Abdomen soft, non-tender EXTREMITIES: No gross deformities. BACK: No flank tenderness. There is reproducible right supragluteal tenderness. Mild pain with right straight leg raise. Strong bilateral hip and knee flexion and extension as well as as the ankle. NEURO: AOx4. Fast exam is negative. Clear speech no facial droop light touch intact bilateral face hands and legs. Strong equal [employer]. Slow steady gait but antalgic due to right side lower back pain, no foot drop. SKIN: Warm and dry PSYCH: Not anxious, is cooperative Initial Vital Signs Initial Vital Signs: Vital Signs Temperature 98.1 F 04/11/23 10:28 Pulse Rate 79 04/11/23 10:28 Respiratory Rate 15 04/11/23 10:28 Blood Pressure 187/84 H 04/11/23 10:28 Pulse Oximetry 99 04/11/23 10:28 Oxygen Delivery Method Room Air 04/11/23 10:28 Course Orders Ordered: Discontinued Medications Cephalexin HCl (Cephalexin 250 Mg Capsule) 500 mg PO NOW ONE Stop: 04/11/23 15:59 Last Admin: 04/11/23 16:07 Dose: 500 mg Documented By: SANCHEZ Sodium Chloride (Normal Saline 0.9%) 500 mls @ 1,000 mls/hr IV BOLUS ONE Stop: 04/11/23 13:56 Last Infusion: 04/11/23 15:13 Dose: 0 mls/hr Documented By: LUIS MANUEL Admin: 04/11/23 14:15 Dose: 1,000 mls/hr Documented By: LUIS MANUEL Losartan Potassium (Losartan 25 Mg Tablet) 25 mg PO NOW ONE Stop: 04/11/23 15:27 Last Admin: 04/11/23 15:31 Dose: 25 mg Documented By: LUIS MANUEL Vital Signs Vital signs: Vital Signs - 8 hr 04/11/23 10:28 04/11/23 14:46 04/11/23 14:46 Temperature 98.1 F Pulse Rate 79 72 Respiratory Rate 15 Blood Pressure 187/84 H 192/91 H Pulse Oximetry 99 100 Oxygen Delivery Method Room Air 04/11/23 15:00 04/11/23 15:10 04/11/23 15:10 Temperature Pulse Rate 73 73 Respiratory Rate Blood Pressure 209/95 H Pulse Oximetry 100 99 Oxygen Delivery Method 04/11/23 15:31 04/11/23 15:33 04/11/23 15:34 Temperature Pulse Rate 89 72 Respiratory Rate Blood Pressure 209/95 H Pulse Oximetry 92 99 Oxygen Delivery Method 04/11/23 15:34 04/11/23 15:45 04/11/23 15:45 Temperature Pulse Rate 75 Respiratory Rate Blood Pressure 193/86 H 194/91 H Pulse Oximetry 98 Oxygen Delivery Method MDM - Fall Lab Data 04/11/23 13:41 04/11/23 13:41 Labs: Lab Results 04/11/23 04/11/23 04/11/23 Range/Units 11:30 13:41 13:41 WBC 5.4 (4.5-11.0) X10^3/uL RBC 4.02 (4.0-5.2) X10^6/uL Hgb 12.4 (12.0-16.0) g/dL Hct 36.1 (36-46) % MCV 89.8 (80-100) fL MCH 30.8 (26-34) PG MCHC 34.3 (30-36) % RDW 14.2 (11.6-14.8) % Plt Count 249 (150-400) X10^3/uL Neut % (Auto) 59.7 (50-75) % Lymph % (Auto) 26.0 (25-40) % [place] % (Auto) 10.7 (3-14) % Eos % (Auto) 1.9 L (2-4) % Baso % (Auto) 1.7 (0-2) % Neut # (Auto) 3200 (1207-0311) /uL Lymph # (Auto) 1400 (2191-5158) /uL [place] # (Auto) 600 (0-900) /uL Eos # (Auto) 100 (0-450) /uL Baso # (Auto) 100 (0-100) /uL Sodium 134 L (137-145) mmol/L Potassium 3.6 (3.4-5.1) mmol/L Chloride 98 (98-107) mmol/L Carbon Dioxide 29 (22-32) mmol/L BUN 13 (7-17) mg/dL Creatinine 0.66 (0.52-1.04) mg/dL Estimated GFR > 60 (>60) mL/min BUN/Creatinine Ratio 19.7 (6-22) Glucose 80 (80-110) mg/dL Calcium 9.1 (8.4-10.2) mg/dL Total Bilirubin 0.5 (0.2-1.3) mg/dL AST 29 (14-36) IU/L ALT 19 (<35) IU/L Alkaline Phosphatase 81 (38-126) U/L Total Creatine Kinase 143 H (30-135) U/L Troponin I < 0.012 (0.01-0.034) ng/mL Total Protein 7.9 (6.3-8.2) g/dL Albumin 4.5 (3.5-5.0) g/dL Globulin 3.4 (1.7-4.1) g/dL Albumin/Globulin Ratio 1.3 (1.0-2.8) Urine Color Yellow Urine Appearance Clear Urine pH 7.0 (4.5-8.0) Ur Specific [place] 1.010 (1.000-1.035) Urine Protein Negative (Negative) Urine Glucose (UA) Negative (Negative) g/dL Urine Ketones Negative (NEGATIVE) Urine Occult Blood Negative (Negative) Urine Nitrate Negative (Negative) Urine Bilirubin Negative (NEGATIVE) Urine Urobilinogen 0.2 (0.2) E.U./dL Ur Leukocyte Esterase Trace H (NEGATIVE) Urine RBC None seen (0-5/HPF) Urine WBC 1-5/hpf (0-5/HPF) Ur Squamous Epith Cells 0-1 /hpf (0-5/HPF) Urine Bacteria Many (>30) H (None) Ur Culture Indicated? Specimen cultured Urine Dip Bedside Urine Glucose Negative Bedside Urine Bilirubin - Negative Bedside Urine Ketone - Negative Urine Specific [place] 1.010 Bedside Urine Occult Blood - Negative Bedside Urine pH 6.5 Bedside Urine Protein - Negative Bedside Urine Urobilinogen - Negative Bedside Urine Nitrite - Negative Bedside Urine Leukocytes +/- [address] lumbar spine: Radiologist's Impression: [address] [address] [address] Scan Report Signed Patient: Merari Bah MR#: [id number] : 1940 Acct:[id number] Age/Sex: 82 / F Date of Service: 04/11/23 Loc: ED Accession Number: [id number] ?? Procedure: CT lumbar spine wo con Ordering Provider: Renato Fraire MD PROCEDURE:? CT LUMBAR SPINE WO CON ? INDICATIONS:? fall on eliquis ? TECHNIQUE:? Noncontrast 3 mm thick sections acquired from the T12 level to the sacrum.? Sagittal and coronal reformats were constructed.? For radiation dose reduction, the following was used:? automated exposure control.? ? COMPARISON:? None. ? FINDINGS:? Image quality:? Excellent.? ? Bones:? Convex right thoracolumbar scoliosis without vertebral anomaly.? L3 anterior wedge-shaped compression fracture with less than 10 percent height loss and no retropulsed fracture fragment.? No suspicious lytic or blastic bony lesions.? No pars defects.? ? T12-L1:? Disc space narrowing present.? No central or foraminal stenosis ? L1-L2:? Disc space narrowing with disc bulge and vacuum disc phenomena.? Mild central stenosis.? Moderate left and no right foraminal stenosis ? L2-L3:? Disc space narrowing and circumferential disc bulge results in mild central stenosis.? Hypertrophic facet joints contribute to moderate left and no right foraminal stenosis. ? L3-L4:? Disc space narrowing with circumferential disc bulge and hypertrophic facet joints combined result in mild to moderate central stenosis.? No right and moderate left foraminal stenosis. ? L4-L5:? Disc space narrowing and circumferential disc bulge with hypertrophic facet joints and ligamentum flavum laxity combined result in moderate central stenosis.? Severe right and moderate left foraminal stenosis ? L5-S1:? Disc space narrowing and circumferential disc bulge with hypertrophic facet joints results in mild central stenosis.? Moderate bilateral foraminal stenosis ? Soft tissues:? No retroperitoneal masses or hematomas.? Visualized aorta is normal in caliber.? ? ? IMPRESSION:? ? Multilevel degenerative disc disease and arthropathy results in varying degrees of central and foraminal stenosis including moderate central stenosis L4-5.? ? Degenerative thoracolumbar dextroscoliosis ? ? ? Approved by: Jerrod Nicole M.D. on 04/11/2023 at 10:41? CT scan - head: Radiologist's Impression: [address] [address] [address] Scan Report Signed Patient: Merari Bah MR#: [id number] : 1940 Acct:[id number] Age/Sex: 82 / F Date of Service: 04/11/23 Loc: ED Accession Number: [id number] ?? Procedure: CT head/brain wo con Ordering Provider: Renato Fraire MD PROCEDURE:? CT HEAD/BRAIN WO CON ? INDICATIONS:? fall on eliquis ? TECHNIQUE:? Noncontrast 4.5 mm thick angled axial sections acquired from the foramen magnum to the vertex, with coronal and sagittal reformats.? For radiation dose reduction, the following was used:? automated exposure control, adjustment of mA and/or kV according to patient size.? ? COMPARISON:? [facility], CT, CT HEAD/BRAIN WO CON, 08/03/2022, 17:10. ? FINDINGS:? Image quality:? Excellent.? ? CSF spaces:? Basal cisterns are patent.? No extra-axial fluid collections.? The ventricles are symmetric in size and shape.? ? Brain:? No intracranial bleeds or masses.? There is cerebral volume loss for age, with resultant ventricular and sulcal prominence.? There are moderate periventricular and deep white matter chronic small vessel ischemic changes.? There is intracranial internal carotid artery atherosclerosis.? ? Skull and face:? Calvarium and visualized facial bones appear intact, without suspicious lesions.? ? Sinuses:? Visualized sinuses and mastoids are clear.? ? IMPRESSION:? ? 1. No acute intracranial process. ? 2. Age-related volume loss and moderate small vessel ischemic change, within normal limits for patient age.? ? ? Dictated by: Marlon Alexander M.D. on 04/11/2023 at 11:35 ? ? Approved by: Marlon Alexander M.D. on 04/11/2023 at 11:39 ? CT - cervical spine: Radiologist's Impression: [address] [address] [address] Scan Report Signed Patient: Merari Bah MR#: [id number] : 1940 Acct:[id number] Age/Sex: 82 / F Date of Service: 04/11/23 Loc: ED Accession Number: [id number] ?? Procedure: CT cervical spine wo con Ordering Provider: Renato Fraire MD PROCEDURE:? CT CERVICAL SPINE WO CON ? INDICATIONS:? fall on eliquis ? TECHNIQUE:? Noncontrast 3 mm thick sections acquired from the skull base to the T4 level.? Sagittal and coronal reformats were then constructed.? For radiation dose reduction, the following was used:? automated exposure control, adjustment of mA and/or kV according to patient size.? ? COMPARISON:? [facility], CT, CT CERVICAL SPINE WO CON, 08/03/2022, 17:10. ? FINDINGS:? Image quality:? Excellent.? ? Bones:? No fractures or dislocations.? Visualized superior ribs are intact.? Severe cervical spondylosis with prominent multilevel facet arthropathy.? There is chronic disc space loss and uncovertebral joint hypertrophy at C6-C7 with bilateral bony foraminal narrowing.? There is also bilateral bony foraminal narrowing on the left at C3- C4 and C4-C5 and C5-C6.. ? Soft tissues:? Prevertebral soft tissues are normal in thickness.? No paravertebral hematomas.? No apical pneumothoraces.? ? ? IMPRESSION:? ? 1. No acute cervical fracture or dislocation. ? 2. Severe cervical spondylosis. ? Dictated by: Marlon Alexander M.D. on 04/11/2023 at 11:39 ? ? Approved by: Marlon Alexander M.D. on 04/11/2023 at 11:42 ? MRI brain: Radiologist's Impression: [address] [address] Magnetic Resonance Report Signed Patient: Merari Bah MR#: [id number] : 1940 Acct:[id number] Age/Sex: 82 / F Date of Service: 04/11/23 Loc: ED Accession Number: [id number] ?? Procedure: MR head/brain wo con Ordering Provider: Renato Fraire MD PROCEDURE:? MR HEAD/BRAIN WO CON ? INDICATIONS:? Ataxia ? TECHNIQUE:? Non-contrast axial T1 spin echo, axial T2 fast spin echo, sagittal and axial FLAIR, coronal T2 fast spin echo, axial gradient echo, axial diffusion and ADC through the brain.? ? COMPARISON:? [facility], CR, XR DEXA AXIAL SKELETON, 01/03/2023, 10:[address].? [facility], MR, MR STROKE, 07/18/2020, 13:26.? [facility], CT, CT HEAD/BRAIN WO CON, 04/11/2023, 11:16. ? FINDINGS:? Image quality:? This examination is limited by involuntary motion artifact.? ? CSF spaces:? Ventricles appear symmetric in size and shape.? Basal cisterns are patent.? No extra-axial fluid collections.? ? Brain:? No intracranial mass effects.? Hemosiderin deposition can be seen within the region of the medial portion of the left lateral ventricle, as on series 11, im age 12.? There is cerebral volume loss for age.? There are periventricular and deep white matter chronic small vessel ischemic changes.? Brainstem appears normal.? Diffusion- weighted images show no acute ischemic insults.? No chronic ischemic insults.? Normal intravascular flow voids are present.? ? Skull and face:? Calvarial bone marrow is normal in signal.? Orbits are normal.? ? Sinuses:? Sinuses and mastoids are clear.? ? ? IMPRESSION:? No findings of acute or subacute infarction can be seen. ? Hemosiderin deposition can be seen along the medial aspect of the left lateral ventricle. ?This is new compared to 2019. No similar finding can be seen on the head CT performed earlier in the earlier in the day.? ? ? Dictated by: Dragan Shaffer M.D. on 04/11/2023 at 13:40 ? ? Approved by: Dragan Shaffer M.D. on 04/11/2023 at 13:48 ? [facility] Narrative Medical decision making narrative: Patient here with daughter. Has different complaints. Patient complains of right sided back pain that radiates down to her foot. Worse with sitting. Improves with walking. No known injury. Patient states this started about 2 weeks ago. Patient has history of degenerative disc disease. History diskectomy in the late 1970s. Has had off and on back pain since then. Has had sciatica on the left and right side. Patient saw her primary care last and was given a Toradol shot and prescription for gabapentin. She took gabapentin Sunday, it did not seem to help a lot. It did make her feel woozy and hard to focus and concentrate. She stopped taking this medication because Sunday night she got up to go the bathroom and felt off balance and fell backwards. She hit her head against the wall. No loss of consciousness. She is on Eliquis for atrial fibrillation. Patient has stopped taking gabapentin since the fall. She states that today during physical therapy for arm she is been feeling very foggy with her thoughts. No slurred speech facial droop. Fast exam is negative After history and exam CBC CMP troponin EKG CT head CT cervical spine CT lumbar spine MRI brain urinalysis normal saline [facility] CC: Confusion/back pain Complicating co-morbidities: Chronic back pain/AFib/Eliquis Data collected from: Patient and daughter Medical records reviewed: No recent visit here for this complaint Differential considered: Includes but not limited to sciatica SI joint dysfunction lumbar radiculopathy degenerative disc disease, UTI, dehydration, TIA/stroke Exam documented above, pertinent findings include: Reproducible right lower back supragluteal tenderness, fast exam is negative Lab Test results independently reviewed as above. Pertinent findings: WBC 5.4 hemoglobin 12.4 hematocrit 36.1 sodium 134 potassium 3.6 GFR greater than 60 troponin less than 0.012 urinalysis trace leukocyte esterase many bacteria Independently reviewed EKG sinus rhythm rate [address] elevation or depression Imaging studies independently reviewed: CT head CT cervical spine CT lumbar spine no acute finding, there is chronic findings and lumbar spine degenerative disc disease MRI no acute finding Consultations: None indicated Treatments: Normal saline, cephalexin Re-evaluations: 3:59 p.m.. Reviewed results with patient and daughter. She is feeling much better after IV fluids. At this time likely combination gabapentin head injury likely slightly dehydrated as well as UTI, these for combinations likely contributing to patient's feeling slightly ?foggy ?and not herself. They do agree with antibiotics and keeping hydrated and follow up with primary care this week. Return precautions reviewed with him. They desire discharge home. They will follow up with primary care for MRI of the lumbar spine and for physical therapy. Discussion: Appropriate for discharge home. Exam and laboratory studies and imaging otherwise reassuring. Likely combination of head injury, gabapentin reaction, UTI, dehydration, contributed to patient's symptoms of feeling off balance and lack of concentration. Return precautions reviewed with patient and daughter. They desire discharge home. Patient feels much better after IV fluids as well. Up and using her walker without difficulty. Diagnosis: Acute UTI closed head injury medication reaction scalp contusion Discharge Plan Departure Patient Disposition: Home Clinical Impression: Contusion of scalp, Acute UTI, Medication reaction Instructions: DI for Urinary Tract Infection (UTI), DI for Closed Head Injury Activity Restrictions/Additional Instructions: Please see your family doctor this week for re-evaluation. Likely your symptoms have been in combination of a new medication gabapentin, please discontinue that, in addition with the head injury and possible urinary tract infection have caused these changes. Keep well hydrated. Continue antibiotic prescription Keflex/cephalexin tomorrow. It has been sent to your pharmacy to [facility]. Return if worse if any questions or concerns. Head injury instructions have been provided to you as well. It is possible you may have had a concussion from your head injury without loss consciousness. Return if worse if any questions or concerns Prescriptions: New cephalexin 500 mg capsule 500 mg PO BID Qty: 6 0RF No Action MULTIVITAMIN (Multivitamin -) 1 cap PO EVERY DAY Qty: 0 lorazepam [Ativan] 0.5 MG tablet 0.25 mg PO PRN PRNQty: 0 apixaban [Eliquis] 5 MG tablet 5 mg Q12H Qty: 0 cyclobenzaprine 5 mg tablet 5 mg PO PRNQty: 0 verapamil 180 mg tablet extended release 120 mg PO Qty: 0 chlorthalidone 25 mg tablet 25 mg PO DAILY Qty: 90 3RF estradiol [Tasia] 0.05 mg/24 hr patch semiweekly See Rx Instructions .ROUTE .COMPLEX Qty: 24 3RF Dose Instruction: APPLY 1 PATCH TOPICALLY TO SKIN TWICE WEEKLY Rx Instructions: APPLY 1 PATCH TOPICALLY TO SKIN TWICE WEEKLY levothyroxine 25 mcg capsule 37.5 mcg PO DAILY vitamin B complex no.10-FA 400 mcg tablet extended release PO polyethylene glycol 3350 [Miralax] 17 gram/dose powder 17 gram PO DAILY acetaminophen [Tylenol Arthritis Pain] 650 mg tablet extended release 650 mg PO Q12H ondansetron 4 mg tablet,disintegrating 4 mg PO Q8H PRN (Reason: nausea and vomiting) Qty: 14 0RF hydrocodone-acetaminophen 5-325 mg tablet 1 tab PO BID PRN (Reason: pain) Qty: 14 0RF magnesium oxide 420 mg tablet 420 mg PO BEDTIME Qty: 30 0RF diclofenac sodium 1 % gel 2 g topical QID Qty: 100 0RF Rx Instructions: apply to single area of pain up to 4 times daily lidocaine 5 % adhesive patch,medicated 1 patch topical DAILY Qty: 30 0RF Rx Instructions: leave on most painful area for up to 12 hrs lorazepam 0.5 mg tablet 0.25 - 0.5 mg PO BID PRN (Reason: anxiety) Qty: 14 0RF bacitracin 500 unit/gram ointment 1 applic topical BID Qty: 28 0RF Referrals: Everton Maldonado MD [Primary Care Provider] - Stand Alone Forms: Patient Portal/API
[2023-04-11] MEDS: SODIUM CHLORIDE 0.9% 500 ML 1000 ML IV (14:15)
[2023-04-11] MEDS: LOSARTAN 25 MG TABLET PO (15:31)
[2023-04-11] MEDS: cephALEXin 250 MG CAPSULE 500 MG PO (16:07)
== END 2023-04-11 16:17 | disposition home or self-care (01) ==
PROVIDERS: Emergency Provider Emergency Medicine; Family Provider Family Medicine; PCP Family Medicine
DX: S00.03XA Contusion of scalp, initial encounter (principal); M54.9 Dorsalgia, unspecified; N39.0 Urinary tract infection, site not specified; M54.50 Low back pain, unspecified; T50.905A Adverse effect of unspecified drugs, medicaments and biological substances, initial encounter; W18.30XA Fall on same level, unspecified, initial encounter; Z79.01 Long term (current) use of anticoagulants; R03.0 Elevated blood-pressure reading, without diagnosis of hypertension
CPT/HCPCS: 36415; 70450; 70551; 72125; 72131; 80053; 81001; 81003; 82550; 84484; 85025; 87086; 93005; 93010; 96360; 99284; 99285

== ENCOUNTER 2024-02-11 07:57 | Emergency (ER) | payer MEDICARE, OTHER, SELFPAY ==
[2024-02-11] VITALS (8 sets, daily range): BP systolic 131–161; BP diastolic 80–93; PULSE 75–122; RESP 12–20; TEMP 36.7; O2SAT 95–100; BMI 18.8
--- NOTE | 2024-02-11 08:09 | DI.RAD.S_ITS ---
PROCEDURE: XR CHEST 1V INDICATIONS: syncope TECHNIQUE: One view of the chest was acquired. COMPARISON: None. FINDINGS: Surgical changes and devices: Percutaneous aortic valve, lead less pacer. Lungs and pleura: Lungs are clear. No pleural effusions or pneumothorax. Mediastinum: Mediastinal contours appear normal. Heart size is normal. Bones and chest wall: No suspicious bony lesions. Overlying soft tissues appear unremarkable. IMPRESSION: No evidence acute pulmonary process. Dictated by: Marlon Alexander M.D. on 02/11/2024 at 8:46 Approved by: Marlon Alexander M.D. on 02/11/2024 at 8:48
--- NOTE | 2024-02-11 08:10 | ED_ITS ---
HPI - Syncope General Chief Complaint: Syncope Stated Complaint: syncopy episodes Time Seen by Provider: 02/11/24 07:58 Source: patient, EMS, RN notes reviewed and old records reviewed Mode of arrival: EMS Limitations: no limitations History of Present Illness HPI narrative: 83-year-old female history of atrial fibrillation, ablation x3 with TAVR on January 05 on Eliquis, hypothyroidism, hypertension who presents with complaint of 2 falls versus syncope. Patient states she woke up at about 430 this morning went to the bathroom. Got up about 1/2 hour later felt very lightheaded woke up on the floor. She was able to get back up and then with the another hour or 2 had another syncopal episode where she felt very lightheaded preceding. She is unsure if she hit her head she denies a headache. She is some mild neck pain but notes she is some chronic neck issues. She denies any chest pain or shortness of breath. She does not feel lightheaded if she is lying flat but feels like if she sat up she would feel lightheaded. Patient states no fevers, no cold cough or congestion. No denies any nausea or vomiting. Denies any recent diarrhea or constipation. States she is stooling regularly. Denies any black or bloody stools. She denies any urinary symptoms, no dysuria, urgency or frequency. She denies any swelling of extremities. She states that her losartan was decreased in the last month. No other new medication changes. She notes that she had a TAVR on January 05 and is in cardiac rehab. Prior surgeries include ablation x3, TAVR, bladder prolapse surgery and hysterectomy. She has a reported allergy to sulfa. No tobacco, alcohol or recreational drugs. Dr. Maldonado is her primary care physician. Per EMS patient had a systolic pressure of 70 with her family, she would pressures in the 120-130 range for EMS. Related Data Home Medications Medication Instructions Recorded Confirmed MULTIVITAMIN (Multivitamin 1 cap PO EVERY DAY ##0 04/02/10 05/22/23 -) apixaban 5 mg tablet (Eliquis) 5 mg Q12H ##0 08/08/16 05/22/23 lorazepam 0.5 mg tablet (Ativan) 0.25 mg PO PRN PRN ##0 08/08/16 05/22/23 cyclobenzaprine 5 mg tablet 5 mg PO PRN ##0 03/11/19 05/22/23 verapamil 180 mg tablet,extended 120 mg PO #0 tabs 03/11/19 05/22/23 release acetaminophen 650 mg 650 mg PO Q12H 06/30/20 05/22/23 tablet,extended release (Tylenol Arthritis Pain) levothyroxine 25 mcg capsule 37.5 mcg PO DAILY 06/30/20 05/22/23 polyethylene glycol 3350 17 17 gram PO DAILY 06/30/20 05/22/23 gram/dose oral powder (Miralax) vitamin Bcomplex no.10-folic acid mcg PO 06/30/20 05/22/23 ER 400 mcg tablet,extended release Previous Rx's Medication Instructions Recorded chlorthalidone 25 mg tablet 25 mg PO DAILY #90 tabs 06/22/22 bacitracin 500 unit/gram topical 1 applic topical BID #28 grams 08/03/22 ointment diclofenac sodium 1 % topical gel 2 g topical QID #100 grams 08/03/22 hydrocodone 5 mg-acetaminophen 325 1 tab PO BID PRN pain #14 tabs 08/03/22 mg tablet lidocaine 5 % topical patch 1 patch topical DAILY #30 ea 08/03/22 lorazepam 0.5 mg tablet 0.25 - 0.5 mg (0.5 - 1 x 0.5 mg) 08/03/22 PO BID PRN anxiety #14 tabs magnesium oxide 420 mg tablet 420 mg PO BEDTIME #30 tabs 08/03/22 ondansetron 4 mg disintegrating 4 mg PO Q8H PRN nausea and 08/03/22 tablet vomiting #14 tabs cephalexin 500 mg capsule 500 mg PO BID #6 caps 04/11/23 estradiol 0.05 mg/24 hr semiweekly 1 patch topical 2XW #24 patches 11/19/23 transdermal patch (Tasia) Allergies Allergy/AdvReac Type Severity Reaction Status Date / Time Sulfa (Sulfonamide Allergy Intermediate RASH Verified 02/11/24 08:23 Antibiotics) [SULFA (SULFONAMIDE ANTIBIOTICS)] margot AdvReac Uncoded 05/22/23 10:54 Review of Systems Review of Systems ROS Unobtainable: All systems reviewed & are unremarkable except as noted in HPI and below Patient History Medical History (Updated 02/11/24 @ 13:03 by Alesia Bustillos DO) Osteoarthritis of right knee Paroxysmal A-fib Surgical History History of left hip replacement History of bladder suspension procedure History of third molar tooth extraction Status post laminectomy Status post appendectomy History of tonsillectomy History of breast augmentation S/P total abdominal hysterectomy and bilateral salpingo-oophorectomy Family History Mother Osteoporosis Sister Osteoporosis Social History Smoking Status: Never smoker Smoking Status: Never smoker alcohol intake frequency: holidays/special occasions only Substance Use Type: does not use Exam Narrative Exam Narrative: GEN: Thin, well appearing female, alert and oriented x 3, patient appears to be in mild distress. HEENT: Atraumatic, pupils are equal round reactive to light, extraocular movements are intact, nares are clear, there is no conjunctival pallor. HEART: Regular rate and rhythm without murmur, clicks, rubs. Pulses are equal in upper and lower extremities LUNGS:Lungs clear to auscultation, no wheezes, rales, crackles, chest moves symmetrically ABD:bowel sounds normal, soft, non-tender, no guarding, rebound, rigidity, no masses noted, no hepatosplenomegaly :No CVA tenderness MSCL: Non-tender, no muscle atrophy, muscles strength 5/5 upper and lower extremities, full range of motion. NEURO:CN 2-12 intact, sensation normal Initial Vital Signs Initial Vital Signs: Vital Signs Temperature 98.1 F 02/11/24 08:09 Pulse Rate 75 02/11/24 08:09 Respiratory Rate 16 02/11/24 08:09 Blood Pressure 161/84 H 02/11/24 08:09 Pulse Oximetry 95 02/11/24 08:09 Oxygen Delivery Method Room Air 02/11/24 08:09 Course Orders Ordered: Discontinued Medications Sodium Chloride (Normal Saline 0.9%) 1,000 mls @ 1,000 mls/hr IV BOLUS ONE Stop: 02/11/24 09:08 Last Infusion: 02/11/24 09:07 Dose: Infused Documented By: Admin: 02/11/24 08:17 Dose: 1,000 mls/hr Documented By: Vital Signs Vital signs: Vital Signs - 8 hr 02/11/24 08:09 02/11/24 09:39 02/11/24 10:00 Temperature 98.1 F Pulse Rate 75 83 Respiratory Rate 16 16 Blood Pressure 161/84 H 153/80 H 131/93 H Pulse Oximetry 95 100 Oxygen Delivery Method Room Air Room Air 02/11/24 10:18 02/11/24 10:30 02/11/24 10:49 Temperature Pulse Rate 90 108 H 102 H Respiratory Rate 20 16 Blood Pressure 131/93 H Pulse Oximetry 98 99 99 Oxygen Delivery Method Room Air Room Air 02/11/24 11:00 02/11/24 13:05 Temperature Pulse Rate 120 H 122 H Respiratory Rate 12 16 Blood Pressure 139/92 H Pulse Oximetry 100 99 Oxygen Delivery Method Room Air MDM - Syncope Lab Data 02/11/24 08:15 02/11/24 08:15 Labs: Lab Results 02/11/24 Range/Units 08:15 WBC 5.8 (4.5-11.0) X10^3/uL RBC 4.20 (4.0-5.2) X10^6/uL Hgb 12.7 (12.0-16.0) g/dL Hct 38.3 (36-46) % MCV 91.3 (80-100) fL MCH 30.2 (26-34) PG MCHC 33.1 (30-36) % RDW 14.8 (11.6-14.8) % Plt Count 180 (150-400) X10^3/uL Neut % (Auto) 74.0 (50-75) % Lymph % (Auto) 16.0 L (25-40) % [place] % (Auto) 7.2 (3-14) % Eos % (Auto) 1.4 L (2-4) % Baso % (Auto) 1.4 (0-2) % Neut # (Auto) 4300 (4730-4162) /uL Lymph # (Auto) 900 L (2435-4296) /uL [place] # (Auto) 400 (0-900) /uL Eos # (Auto) 100 (0-450) /uL Baso # (Auto) 100 (0-100) /uL PT 13.7 H (9.4-12.5) SECONDS INR 1.2 (0.9-1.3) APTT 36 (25.1-36.5) SECONDS D-Dimer 884 H (<500) ng/ml Sodium 135 L (137-145) mmol/L Potassium 4.0 (3.4-5.1) mmol/L Chloride 103 (98-107) mmol/L Carbon Dioxide 27 (22-32) mmol/L BUN 30 H (7-17) mg/dL Creatinine 0.90 (0.52-1.04) mg/dL Estimated GFR > 60 (>60) mL/min BUN/Creatinine Ratio 33.3 H (6-22) Glucose 118 H (80-110) mg/dL Calcium 9.0 (8.4-10.2) mg/dL Total Bilirubin 0.6 (0.2-1.3) mg/dL AST 29 (14-36) IU/L ALT 18 (<35) IU/L Alkaline Phosphatase 83 (38-126) U/L Total Creatine Kinase 194 H (30-135) U/L Troponin I < 0.012 (0.01-0.034) ng/mL NT-Pro-B Natriuret Pep 852 H (<450) pg/mL Total Protein 7.6 (6.3-8.2) g/dL Albumin 4.5 (3.5-5.0) g/dL Globulin 3.1 (1.7-4.1) g/dL Albumin/Globulin Ratio 1.5 (1.0-2.8) Lipase 106 (23-300) U/L Point of Care Testing Glucose POC 106 Urine Dip Bedside Urine Glucose Negative Bedside Urine Bilirubin - Negative Bedside Urine Ketone - Negative Urine Specific [place] 1.010 Bedside Urine Occult Blood - Negative Bedside Urine pH 7.5 Bedside Urine Protein - Negative Bedside Urine Urobilinogen - Negative Bedside Urine Nitrite - Negative Bedside Urine Leukocytes - Negative Esterase ECG Data Attestation: I personally reviewed and interpreted this ECG as follows: Prior ECG tracings: available for review Interpretation: AFib, rate of 74 QRS of 92 QTC 415. Nonspecific change. Patient has prior from 04/11/2023 which shows sinus rhythm with a first-degree AV block. MDM Narrative Medical decision making narrative: 83-year-old female with likely 2 syncopal episodes morning, patient reportedly was hypotensive for family but not for EMS. She appears to be in AFib but rate controlled Labs white count of 5.8 hemoglobin 12.7 platelets of 180, D-dimer is 884, age adjusted cut off his 820 so it is positive. CT angio was obtained to evaluate for blood clot and/or pericardial effusion as patient is less than 2 weeks out from a TAVR. INR is 1.2 PTT is 36. Sodium is 135 potassium is 4 chloride 103 CO2 is 27 with a BUN of 30 creatinine 0.9 glucose of 118 LFTs are negative, troponins less than 0.012 with a BNP of 852. Total CK is 194. Imaging CTA shows no pulmonary embolus, no acute pulmonary process. No pericardial effusion. Head CT shows acute age related volume loss moderate small-vessel ischemic changes no acute intracranial change. No acute cervical fracture or dislocation, diffuse cervical spondylitic change. No acute pulmonary process. Patient does appear to be in atrial fibrillation, rate controlled. Spoke with her cardiology team. Dr. Brasher in [place]. She recommends interrogating or loop recorder although it is very the end of its battery life so may not work. We were able to do so, patient was found to be in AFib on the 04 11 and intermittently. She was reported to have an 8 second pause at 8:25 a.m. this morning on interrogation of her device. Patient was here in the department without symptoms when this occurred she was asymptomatic throughout. Patient was on telemetry and was not captured on our telemetry. Spoke with Dr. Brasher again she felt that this was likely more related to her battery life and not a true pause if we are not captured on our telemetry. Patient did not have any episodes of VFib or V-tach. Patient is felt appropriate for discharge home. She has an appointment on Sunday with Cardiology. They are also going to send her monitor for home. Discussed return precautions. Discharge Plan Departure Patient Disposition: Home Clinical Impression: Paroxysmal A-fib Instructions: DI for Syncope in Adults (Fainting) Activity Restrictions/Additional Instructions: Follow up with your cardiology team. Your loop recorder show that you has been and out of AFib over the past 3 days. You have been in and out of atrial fibrillation here in the department. There was concern about an 2nd pause on your interrogation but you are in our department and we did not capture a pause on our telemetry. I did talk with your cardiology team, they are planning to send a monitor to you to wear at home. Continue your home medications as prescribed. Please return for recurrent episodes of syncope or lightheadedness, if you are feeling any worse, new chest pain, shortness of breath, persistent palpitations or elevated heart rate, new swelling of your extremities or other new or concerning changes. Prescriptions: No Action MULTIVITAMIN (Multivitamin -) 1 cap PO EVERY DAY Qty: 0 lorazepam [Ativan] 0.5 MG tablet 0.25 mg PO PRN PRNQty: 0 apixaban [Eliquis] 5 MG tablet 5 mg Q12H Qty: 0 cyclobenzaprine 5 mg tablet 5 mg PO PRNQty: 0 verapamil 180 mg tablet extended release 120 mg PO Qty: 0 chlorthalidone 25 mg tablet 25 mg PO DAILY Qty: 90 3RF estradiol [Tasia] 0.05 mg/24 hr patch semiweekly 1 patch topical 2XW Qty: 24 3RF levothyroxine 25 mcg capsule 37.5 mcg PO DAILY vitamin B complex no.10-FA 400 mcg tablet extended release PO polyethylene glycol 3350 [Miralax] 17 gram/dose powder 17 gram PO DAILY acetaminophen [Tylenol Arthritis Pain] 650 mg tablet extended release 650 mg PO Q12H cephalexin 500 mg capsule 500 mg PO BID Qty: 6 0RF ondansetron 4 mg tablet,disintegrating 4 mg PO Q8H PRN (Reason: nausea and vomiting) Qty: 14 0RF hydrocodone-acetaminophen 5-325 mg tablet 1 tab PO BID PRN (Reason: pain) Qty: 14 0RF magnesium oxide 420 mg tablet 420 mg PO BEDTIME Qty: 30 0RF diclofenac sodium 1 % gel 2 g topical QID Qty: 100 0RF Rx Instructions: apply to single area of pain up to 4 times daily lidocaine 5 % adhesive patch,medicated 1 patch topical DAILY Qty: 30 0RF Rx Instructions: leave on most painful area for up to 12 hrs lorazepam 0.5 mg tablet 0.25 - 0.5 mg PO BID PRN (Reason: anxiety) Qty: 14 0RF bacitracin 500 unit/gram ointment 1 applic topical BID Qty: 28 0RF Referrals: Everton Maldonado MD [Primary Care Provider] - Stand Alone Forms: Patient Portal/API
--- NOTE | 2024-02-11 08:11 | DI.CT.S_ITS ---
PROCEDURE: CT CERVICAL SPINE WO CON INDICATIONS: syncope, on thinners, fall, neck pain TECHNIQUE: Noncontrast 3 mm thick sections acquired from the skull base to the T4 level. Sagittal and coronal reformats were then constructed. For radiation dose reduction, the following was used: automated exposure control, adjustment of mA and/or kV according to patient size. COMPARISON: [facility], CT, CT CERVICAL SPINE WO CON, 04/11/2023, 11:16. FINDINGS: Image quality: Excellent. Bones: No fractures or dislocations. Visualized superior ribs are intact. Severe diffuse cervical spondylosis, as before. Multilevel facet arthropathy. Multilevel bilateral foraminal narrowing. Soft tissues: Prevertebral soft tissues are normal in thickness. No paravertebral hematomas. No apical pneumothoraces. IMPRESSION: 1. No acute cervical fracture or dislocation. 2. Diffuse severe cervical spondylitic change. Dictated by: Marlon Alexander M.D. on 02/11/2024 at 8:56 Approved by: Marlon Alexander M.D. on 02/11/2024 at 8:58
--- NOTE | 2024-02-11 08:11 | DI.CT.S_ITS ---
PROCEDURE: CT HEAD/BRAIN WO CON INDICATIONS: syncope, on thinners, fall, neck pain TECHNIQUE: Noncontrast 4.5 mm thick angled axial sections acquired from the foramen magnum to the vertex, with coronal and sagittal reformats. For radiation dose reduction, the following was used: automated exposure control, adjustment of mA and/or kV according to patient size. COMPARISON: [facility], CT, CT HEAD/BRAIN WO CON, 04/11/2023, 11:16. FINDINGS: Image quality: Diagnostic. CSF spaces: Basal cisterns are patent. No extra-axial fluid collections. The ventricles are symmetric in size and shape. Brain: No intracranial bleeds or masses. There is cerebral volume loss for age, with resultant ventricular and sulcal prominence. There are moderate periventricular and deep white matter chronic small vessel ischemic changes. There is intracranial internal carotid artery atherosclerosis. Skull and face: Calvarium and visualized facial bones appear intact, without suspicious lesions. Sinuses: Visualized sinuses and mastoids are clear. IMPRESSION: 1. Age-related volume loss and moderate small vessel ischemic change. 2. No acute intracranial process. Dictated by: Marlon Alexander M.D. on 02/11/2024 at 8:58 Approved by: Marlon Alexander M.D. on 02/11/2024 at 8:59
[2024-02-11] MEDS: SODIUM CHLORIDE 0.9% 1,000 ML 1000 ML IV (08:17)
[2024-02-11 08:23] LABS: Add Manual Diff / Slide Review NO; Basophils Absolute Auto 100 /uL (0-100); Basophils Percent Auto 1.4 % (0-2); Eosinophils Absolute Auto 100 /uL (0-450); Eosinophils Percent Auto 1.4 % (2-4); Hematocrit 38.3 % (36-46); Hemoglobin 12.7 g/dL (12.0-16.0); Lymphocytes Absolute Auto 900 /uL (1100-4500); Mean Corpuscular HGB Conc 33.1 % (30-36); Mean Corpuscular Hemoglobin 30.2 PG (26-34); Mean Corpuscular Volume 91.3 fL (80-100); Monocytes Absolute Auto 400 /uL (0-900); Monocytes Percent Auto 7.2 % (3-14); Neutrophils Absolute Auto 4300 /uL (1500-7000); Platelet Count 180 X10^3/uL (150-400); Red Cell Distribution Width 14.8 % (11.6-14.8); White Blood Cell Count 5.8 X10^3/uL (4.5-11.0)
[2024-02-11 08:35] LABS: Alanine Aminotransferase 18 IU/L (<35); Albumin 4.5 g/dL (3.5-5.0); Albumin Globulin Ratio 1.5 (1.0-2.8); Alkaline Phosphatase 83 U/L (38-126); Aspartate Aminotransferase 29 IU/L (14-36); BUN Creatinine Ratio 33.3 (6-22); Bilirubin Total 0.6 mg/dL (0.2-1.3); Blood Urea Nitrogen 30 mg/dL (7-17); Carbon Dioxide 27 mmol/L (22-32); Chloride 103 mmol/L (98-107); Creatine Kinase 194 U/L (30-135); Estimated Glomerular Filt Rate > 60 mL/min (>60); Globulin 3.1 g/dL (1.7-4.1); Glucose 118 mg/dL (80-110); HEMOLYSIS < 15 (0-50); Lipase 106 U/L (23-300); Sodium 135 mmol/L (137-145); Total Protein 7.6 g/dL (6.3-8.2)
[2024-02-11 08:36] LABS: INR 1.2 (0.9-1.3); Prothrombin Time 13.7 SECONDS (9.4-12.5)
[2024-02-11 08:37] LABS: D Dimer 884 ng/ml (<500)
[2024-02-11 08:38] LABS: PTT Partial Thromboplastin Tim 36 SECONDS (25.1-36.5)
[2024-02-11 08:47] LABS: NT-proBNP (BNP-Adult 18+) 852 pg/mL (<450); Troponin I < 0.012 ng/mL (0.01-0.034)
--- NOTE | 2024-02-11 08:50 | DI.CT.S_ITS ---
PROCEDURE: CT ANGIO CHEST PE PROTOCOL INDICATIONS: syncope, s/p TAVR 2 weeks TECHNIQUE: After the administration of intravenous contrast, 2 mm thick sections acquired from the pulmonary apices to the posterior costophrenic angles. 3-dimensional maximum intensity projection (MIP) coronal and sagittal reformats were then acquired through the thorax. For radiation dose reduction, the following was used: automated exposure control, adjustment of mA and/or kV according to patient size. COMPARISON: None. FINDINGS: Image quality: Diagnostic. Pulmonary arteries: Pulmonary arteries are normal in size, and demonstrate no intraluminal filling defects to suggest central pulmonary embolism. Lower Neck: No enlarged lymph nodes. Thyroid: No thyroid nodules which require sonographic follow up, per consensus guidelines. Axillae: No enlarged lymph nodes. Chest Wall: Unremarkable. Bones: Unremarkable. Lungs and Pleura: No pneumothorax or pleural effusions. No consolidation or suspicious nodules. Heart: Heart size is normal. No pericardial effusion. Percutaneous aortic valve. Thoracic Vessels: No aortic aneurysm. Mediastinum and Mayra: No enlarged lymph nodes. Esophagus: No wall thickening. No hiatal hernia. Upper Abdomen: Visualized upper abdomen solid organs and bowel loops appear normal. IMPRESSION: No pulmonary embolus. No acute cardiopulmonary process. TAVR noted. Dictated by: Marlon Alexander M.D. on 02/11/2024 at 9:36 Approved by: Marlon Alexander M.D. on 02/11/2024 at 9:40
== END 2024-02-11 13:20 | disposition home or self-care (01) ==
PROVIDERS: Emergency Provider Emergency Medicine; Family Provider Family Medicine; PCP Family Medicine
DX: I48.0 Paroxysmal atrial fibrillation (principal)
CPT/HCPCS: 36415; 70450; 71045; 71275; 72125; 80053; 81003; 82550; 82962; 83690; 83880; 84484; 85025; 85379; 85610; 85730; 93005; 93010; 99284; Q9967

== ENCOUNTER → 2024-02-14 14:01 | Outpatient (CLI) | payer MEDICARE, OTHER, SELFPAY ==
--- NOTE | 2024-02-14 | DI.MG.S_ITS ---
BILATERAL DIGITAL SCREENING MAMMOGRAM 3D/2D WITH CAD WITH AUGMENTATION: 02/14/2024 CLINICAL: Routine screening. Comparison is made to exams dated: 01/03/2023 mammogram, 01/02/2022 mammogram, and 12/13/2020 mammogram - [facility]. There are scattered areas of fibroglandular density in both breasts (category b / 25%-50% glandular tissue). Current study was also evaluated with a Computer Aided Detection (CAD) system. Bilateral breast implants are stable. No significant masses, calcifications, or other findings are seen in either breast. There has been no significant interval change. IMPRESSION: NEGATIVE There is no mammographic evidence of malignancy. A 1 year screening mammogram is recommended. Based on the Tyrer Cuzick model (a risk assessment model) the patient's lifetime risk is 0.6% and her 10 year risk is 0.0%. According to the ACR, ACS, and NCCN guidelines, an annual breast MRI exam along with mammogram is recommended if the patient's lifetime risk is 20% or greater. This exam was interpreted at Station ID: [id number]. NOTE: For mammograms, a report in lay terms will be sent to the patient. Approximately 15% of breast malignancies will not be visualized mammographically. In the management of a palpable breast mass, a negative mammogram must not discourage biopsy of a clinically suspicious lesion. Electronically Signed By: Michele ospina/sal:02/14/2024 15:53:26 copy to: Marlena Layne letter sent: Normal Exam ACR BI-RADS Category 1: Negative [id number]
== END ==
LOC: MAMMO 14:02
PROVIDERS: Family Provider Family Medicine; PCP Family Medicine; Referring Provider Family Medicine; Visit Provider Family Medicine
DX: Z12.31 Encounter for screening mammogram for malignant neoplasm of breast (principal); R92.323 Mammographic fibroglandular density, bilateral breasts
CPT/HCPCS: 77063; 77067

== ENCOUNTER 2024-04-24 08:30 | Outpatient (RCR) | payer MEDICARE, OTHER, SELFPAY | END 2024-04-24 10:30 | LOC: CAR 08:30 | PROVIDERS: Family Provider Family Medicine; PCP Family Medicine; Referring Provider Internal Medicine Interventional Cardiology; Visit Provider Internal Medicine Interventional Cardiology | DX: Z95.2 Presence of prosthetic heart valve (principal) | CPT/HCPCS: 93798 ==

== ENCOUNTER → 2025-03-09 07:53 | Outpatient (CLI) | payer MEDICARE, OTHER, SELFPAY ==
--- NOTE | 2025-03-09 07:56 | DI.MG.S_ITS ---
MM screening mammo implant BI: 03/09/2025. BI-RADS: 2 CLINICAL: 84-year old female for bilateral screening mammogram. Tyrer-Cuzick lifetime risk of 0.5%. No personal or first-degree family history of breast cancer. The patient has bilateral implants. PRIOR EXAMS 02/14/2024, 01/03/2023, 01/02/2022, MAMMOGRAPHY TECHNIQUE: The examination is limited by clinical circumstance. 2D and 3D (tomosynthesis) digital mammographic views obtained, with additional images as needed for full coverage. Current study was also evaluated with a Computer Aided Detection (CAD) system. DENSITY C. The breasts are heterogeneously dense, which may obscure small masses. IMPLANTS Breast implants present. MAMMOGRAPHY FINDINGS Bilateral: There are no suspicious masses, calcifications, or other findings in the breast. IMPRESSION: * No evidence of malignancy with benign findings. RECOMMENDATIONS Bilateral * Annual screening mammography. OVERALL ASSESSMENT CATEGORY BI-RADS-2: Benign. The [employer] [place] [employer] recommends annual screening mammography beginning at age 40 for women with average risk of breast cancer. ELECTRONICALLY SIGNED: Samantha Ware M.D. on 03/09/2025 at 10:35:44 PM PT Interpreting Station ID: [id number]
== END ==
LOC: MAMMO 07:54
PROVIDERS: Family Provider Family Medicine; PCP Family Medicine; Referring Provider Family Medicine; Visit Provider Family Medicine
DX: Z12.31 Encounter for screening mammogram for malignant neoplasm of breast (principal); R92.333 Mammographic heterogeneous density, bilateral breasts; Z98.82 Breast implant status
CPT/HCPCS: 77063; 77067

== ENCOUNTER → 2025-03-23 12:38 | Outpatient (CLI) | payer MEDICARE, OTHER, SELFPAY ==
--- NOTE | 2025-03-23 12:40 | DI.RAD.S_ITS ---
PROCEDURE: XR DEXA AXIAL SKELETON INDICATIONS: POST MENOPAUSAL COMPARISON: [facility], , XR DEXA AXIAL SKELETON, 01/03/2023, 10:51. FINDINGS: Lumbar Spine: Bone mineral density 1.242 (previously 1.262) g/cm2, T score 1.9 (previously 2.0). Right Femoral Neck: Bone mineral density 0.799 (previously 0.821) g/cm2, T score -0.5 (previously-0.2). Right Hip: Bone mineral density 0.896 (previously 0.927) g/cm2, T score -0.4 (previously-0.1). Fracture Risk Calculation (when applicable): 10-year fracture risk of a major osteoporotic fracture 11 percent and of a hip fracture 2 point percent. (T score greater or equal to -1.0 to: NORMAL) (T score from -1.1 to -2.4: OSTEOPENIA) (T score less than or equal to -2.5: OSTEOPOROSIS) IMPRESSION: Normal Follow-up guidelines as follows: Osteoporosis: Consider a repeat DEXA and Vertebral Fracture Assessment (VFA) exam in 2 years or sooner if medically necessary, to reassess this patient's status. Osteopenia: Consider a repeat DEXA in 2-3 years to reassess this patient's status, or if there is a new clinical indication. Normal: Consider a repeat DEXA in 5 years or sooner, or if there is a new clinical indication. All treatment decisions require clinical judgment and consideration of individual patient factors, including patient preferences, comorbidities, previous drug use, risk factors not captured in the FRAX model (e.g., frailty, falls, vitamin D deficiency, increased bone turnover, interval significant decline in bone density ) and possible under- or over-estimation of fracture risk by FRAX. In addition, the NOF Guide recommends that FDA-approved medical therapies be considered in postmenopausal women and men age >= 50 years with a: * Hip or vertebral (clinical or morphometric) fracture * T-score of <=-2.5 at the spine or hip * Ten-year fracture probability by FRAX of >= 3% for hip fracture or >=20% for major osteoporotic fracture. Dictated by: Efraín Velarde M.D. on 03/27/2025 at 10:26 Approved by: Efraín Velarde M.D. on 03/27/2025 at 10:30
== END ==
PROVIDERS: Family Provider Family Medicine; PCP Family Medicine; Referring Provider Family Medicine; Visit Provider Family Medicine
DX: Z78.0 Asymptomatic menopausal state (principal)
CPT/HCPCS: 77080

== ENCOUNTER 2025-05-27 07:41 | Emergency (ER) | payer MEDICARE, OTHER, SELFPAY ==
[2025-05-27] VITALS (18 sets, daily range): BP systolic 110–179; BP diastolic 54–92; PULSE 65–128; RESP 12–19; TEMP 36.6; O2SAT 96–100; BMI 18.3
--- NOTE | 2025-05-27 07:48 | EKG_ITS ---
[address] [address] Test Date: 2025-05-27 Pat Name: Ruby Bah Department: Room: Gender: Female [facility] Att[facility]: DOMINICK : 1940 Requested By: Order Number: [id number] Reading MD: Emil Veliz MD Measurements Intervals [place] Rate: 130 P: MO: 194 QRS: 82 QRSD: 92 T: 49 QT: 298 QTc: 438 Interpretive Statements Sinus tachycardia Left ventricular hypertrophy with repolarization abnormality ( [place] product ) Anteroseptal infarct , age undetermined Electronically Signed On 05-27-2025 10:12:31 PDT by Emil Veliz MD
--- NOTE | 2025-05-27 07:51 | PC.NURSE ---
at [facility] for EKG and given EKG report @[id number].
--- NOTE | 2025-05-27 07:55 | DI.RAD.S_ITS ---
PROCEDURE: XR CHEST 1V INDICATIONS: Chest Pain TECHNIQUE: One view of the chest was acquired. COMPARISON: [facility], CR, XR CHEST 1V, 02/11/2024, 8:11. FINDINGS: Surgical changes and devices: Percutaneous aortic valve, lead less pacemaker Lungs and pleura: Lungs are clear. No pleural effusions or pneumothorax. Mediastinum: Mediastinal contours appear normal. Heart size is normal. Bones and chest wall: No suspicious bony lesions. Overlying soft tissues appear unremarkable. IMPRESSION: No acute cardiopulmonary abnormality is seen. Dictated by: Marlon Alexander M.D. on 05/27/2025 at 8:46 Approved by: Marlon Alexander M.D. on 05/27/2025 at 8:47
--- NOTE | 2025-05-27 07:55 | EKG_ITS ---
[address] [address] Test Date: 2025-05-27 Pat Name: Ruby Bah Department: [facility] Room: Gender: Female [employer] Room Attendant: : 1940 Requested By: Order Number: [id number] Reading MD: Emil Veliz MD Measurements Intervals [place] Rate: 99 P: [place]: QRS: 82 QRSD: 94 T: 76 QT: 338 QTc: 433 Interpretive Statements Atrial flutter with variable AV block Minimal voltage criteria for LVH, may be normal variant ( [place] product ) Anteroseptal infarct , age undetermined Electronically Signed On 05-27-2025 10:14:18 PDT by Emil Veliz MD
--- NOTE | 2025-05-27 07:56 | ED.ARRPALP ---
HPI - Arrhythmia/Palpitations General Chief Complaint: Arrhythmia/Palpitations Stated Complaint: Afib Time Seen by Provider: 05/27/25 07:45 Source: EMS Mode of arrival: EMS History of Present Illness HPI narrative: Patient brought in by ambulance for home. Patient has history of paroxysmal atrial fibrillation on Eliquis. Has not missed any doses. Patient states last night started feeling dizzy and near fainting when she stands up. No chest pain. Patient sees Dr. Friedman with [facility]. Last ablation 5 years ago. Loop recorder 1 year ago shows paroxysmal AFib. EKG likely atrial flutter rate 130 today. Patient in no distress. Related Data Home Medications ?Medication ?Instructions ?Recorded ?Confirmed MULTIVITAMIN (Multivitamin 1 cap PO EVERY DAY ##0 04/02/10 07/17/24 -) acetaminophen 650 mg 650 mg PO Q12H 06/30/20 07/17/24 tablet,extended release (Tylenol Arthritis Pain) levothyroxine 25 mcg capsule 37.5 mcg PO DAILY 06/30/20 07/17/24 polyethylene glycol 3350 17 17 gram PO DAILY 06/30/20 05/22/23 gram/dose oral powder (Miralax) vitamin B complex no.10-folic ac mcg PO 06/30/20 07/17/24 ER 400 mcg tablet,extended release apixaban 5 mg tablet (Eliquis) 2.5 mg PO Q12H #0 tabs 07/17/24 07/17/24 valsartan 40 mg tablet mg PO 03/05/25 03/05/25 Previous Rx's ?Medication ?Instructions ?Recorded diclofenac sodium 1 % topical gel 2 g topical QID #100 grams 08/03/22 lidocaine 5 % topical patch 1 patch topical DAILY #30 ea 08/03/22 magnesium oxide 420 mg tablet 420 mg PO BEDTIME #30 tabs 08/03/22 ondansetron 4 mg disintegrating 4 mg PO Q8H PRN nausea and 08/03/22 tablet vomiting #14 tabs estradiol 0.05 mg/24 hr semiweekly 1 patch topical 2XW #24 patches 12/30/24 transdermal patch (Tasia) estradiol 0.01% (0.1 mg/gram) 0.5 g vaginal 2XW #42.5 grams 03/05/25 vaginal cream (Estrace) oxybutynin chloride 5 mg 5 mg PO DAILY #90 tabs 03/05/25 tablet,extended release 24 hr Allergies Allergy/AdvReac Type Severity Reaction Status Date / Time Sulfa (Sulfonamide Allergy Intermediate RASH Verified 05/27/25 07:53 Antibiotics) (SULFA (SULFONAMIDE ANTIBIOTICS)) gabapentin Allergy Mild Verified 05/27/25 07:53 losartan AdvReac Mild Verified 05/27/25 07:53 margot AdvReac Uncoded 05/27/25 07:53 Review of Systems Review of Systems Narrative: GENERAL: Negative chills, fatigue, malaise, fever, positive sweats. HEENT: Negative sinus pain, ear pain, sore throat RESPIRATORY: Negative dyspnea, cough CARDIOVASCULAR: Negative chest pain, positive palpitations GASTROINTESTINAL: Negative vomiting, nausea, abdominal pain : Negative dysuria, frequency, hematuria MUSCULOSKELETAL: Negative muscle or bony pain SKIN: Negative rash, skin lesions NEUROLOGIC: Negative weakness, numbness, positive dizzy ROS Unobtainable: All systems reviewed & are unremarkable except as noted in HPI and below Patient History Medical History (Updated 05/27/25 @ 09:10 by Renato Fraire MD) Osteoarthritis of right knee Paroxysmal A-fib Surgical History History of left hip replacement History of bladder suspension procedure History of third molar tooth extraction Status post laminectomy Status post appendectomy History of tonsillectomy History of breast augmentation S/P total abdominal hysterectomy and bilateral salpingo-oophorectomy Family History Mother Osteoporosis Sister Osteoporosis alcohol intake frequency: holidays/special occasions only Exam Narrative Exam Narrative: GENERAL: in no distress, not toxic not dyspneic HEAD: Normocephalic. EYES: Pupils equal round ENT: Mucous membranes moist. NECK: Trachea midline. CARDIOVASCULAR: Tachycardia with Regular rate and rhythm RESPIRATORY: Clear to auscultation. Breath sounds equal bilaterally. No wheezes, rales, or rhonchi. GASTROINTESTINAL: Abdomen soft, non-tender EXTREMITIES: No gross deformities. BACK: No flank tenderness. NEURO: AOx4. Clear speech SKIN: Warm and dry PSYCH: Not anxious, is cooperative Initial Vital Signs Initial Vital Signs: Vital Signs Temperature 98 F 05/27/25 07:36 Pulse Rate 128 H 05/27/25 07:36 Respiratory Rate 18 05/27/25 07:36 Blood Pressure 151/91 H 05/27/25 07:36 Pulse Oximetry 98 05/27/25 07:36 Oxygen Delivery Method Room Air 05/27/25 07:36 Procedures Cardioversion Time of Cardioversion: 10:00 Consent Signed: Yes Indication: Atrial fibrillation Stability: Stable Joules used: 150 Cardiac rhythm post-cardioversion: Sinus rhythm rate 78 Additional Comments: 2nd cardioversion attempt at 200 joules with cardioversion to sinus rhythm Procedural Sedation Time of procedure: 09:58 Consent signed: Yes Time out performed: Yes Indication: cardioversion Presedation Evaluation: Pre sedation patient awake alert orient x4 ASA Class: I Mallampati Airway Classification: Class I Time of Last PO Intake: 18:00 Preparation: environmental monitoring technician applied, pulse oximeter, capnometry used, supplemental O2 applied, reversal agents at bedside, suction/airway equipment at bedside and IV secured IV Propofol dose (mg): 60 ED Sedation Level: Moderate (Concious) Patient Tolerated Procedure: Well and No complications Complications: none Course Orders Ordered: ED Orders 05/27/25 07:50 Complete Blood Count AUTO DIFF Stat Comprehensive Metabolic Panel Stat Lipase Stat Magnesium Stat NT-proBNP (BNP-Adult 18+) Stat PTT Partial Thromboplastin [place] Stat Prothrombin Time INR Stat Troponin & CK Cardiac Panel Stat 05/27/25 07:55 XR chest 1V Stat EKG-12 Lead Stat 05/27/25 08:23 EKG-12 Lead Stat 05/27/25 10:07 EKG-12 Lead Stat Discontinued Medications Apixaban (Apixaban 5 Mg Tablet) 2.5 mg PO NOW ONE Stop: 05/27/25 10:13 Last Admin: 05/27/25 10:27 Dose: 2.5 mg Documented By: CLAUDY Aspirin (Aspirin 81 Mg Chew Tab) 324 mg PO NOW ONE Stop: 05/27/25 07:56 Last Admin: 05/27/25 08:09 Dose: Not Given Documented By: CLAUDY Ondansetron HCl (Ondansetron 4 Mg/2 Ml Inj) 4 mg IV NOW ONE Stop: 05/27/25 07:56 Last Admin: 05/27/25 08:05 Dose: 4 mg Documented By: Propofol (Propofol 200 Mg/20 Ml Vial) 80 mg IV NOW ONE Stop: 05/27/25 09:14 Last Admin: 05/27/25 09:58 Dose: 60 mg Documented By: CLAUDY Vital Signs Vital signs: Vital Signs - 8 hr 05/27/25 07:36 05/27/25 09:12 05/27/25 09:30 Temperature 98 F Pulse Rate 128 H 65 111 H Respiratory Rate 18 15 Blood Pressure 151/91 H Pulse Oximetry 98 100 99 Oxygen Delivery Method Room Air 05/27/25 09:38 05/27/25 09:38 05/27/25 09:50 Temperature Pulse Rate 108 H Respiratory Rate 17 14 Blood Pressure 179/82 H Pulse Oximetry 98 Oxygen Delivery Method 05/27/25 09:55 05/27/25 09:58 05/27/25 09:59 Temperature Pulse Rate 99 H 105 H 107 H Respiratory Rate 16 16 Blood Pressure 179/92 H Pulse Oximetry 97 97 Oxygen Delivery Method 05/27/25 10:00 05/27/25 10:00 05/27/25 10:01 Temperature Pulse Rate 102 H 109 H 77 Respiratory Rate 15 19 18 Blood Pressure 152/76 H Pulse Oximetry 98 98 97 Oxygen Delivery Method 05/27/25 10:01 05/27/25 10:05 05/27/25 10:05 Temperature Pulse Rate 75 77 Respiratory Rate 15 15 Blood Pressure 152/76 H 144/54 H Pulse Oximetry 98 98 Oxygen Delivery Method 05/27/25 10:05 05/27/25 10:10 05/27/25 10:10 Temperature Pulse Rate 73 73 Respiratory Rate 16 18 Blood Pressure 144/64 H 121/60 Pulse Oximetry 100 99 Oxygen Delivery Method 05/27/25 10:10 05/27/25 10:15 05/27/25 10:15 Temperature Pulse Rate 77 72 Respiratory Rate 15 12 Blood Pressure 121/60 128/58 L Pulse Oximetry 100 98 Oxygen Delivery Method 05/27/25 10:15 05/27/25 10:20 05/27/25 10:20 Temperature Pulse Rate 71 72 Respiratory Rate 18 15 Blood Pressure 126/58 L 110/59 L Pulse Oximetry 99 100 Oxygen Delivery Method 05/27/25 10:20 05/27/25 10:25 05/27/25 10:25 Temperature Pulse Rate 79 71 Respiratory Rate 16 18 Blood Pressure 140/69 133/65 Pulse Oximetry 98 100 Oxygen Delivery Method 05/27/25 10:25 05/27/25 10:30 05/27/25 10:30 Temperature Pulse Rate 71 Respiratory Rate 16 Blood Pressure 133/65 149/64 H 149/64 H Pulse Oximetry 99 Oxygen Delivery Method 05/27/25 10:30 05/27/25 10:35 05/27/25 10:35 Temperature Pulse Rate 74 71 Respiratory Rate 18 15 Blood Pressure 147/70 H Pulse Oximetry 99 99 Oxygen Delivery Method 05/27/25 11:00 05/27/25 11:00 Temperature Pulse Rate 75 Respiratory Rate 15 Blood Pressure 158/70 H Pulse Oximetry 99 Oxygen Delivery Method MDM - Arrhythmia/Palpitations Lab Data 05/27/25 07:50 05/27/25 07:50 Labs: Lab Results 05/27/25 Range/Units 07:50 WBC 5.1 (4.5-11.0) X10^3/uL RBC 4.40 (4.0-5.2) X10^6/uL Hgb 13.6 (12.0-16.0) g/dL Hct 40.2 (36-46) % MCV 91.2 (80-100) fL MCH 30.8 (26-34) PG MCHC 33.8 (30-36) % RDW 13.5 (11.6-14.8) % Plt Count 185 (150-400) X10^3/uL Neut % (Auto) 69.1 (50-75) % Lymph % (Auto) 19.7 L (25-40) % [place] % (Auto) 8.2 (3-14) % Eos % (Auto) 1.5 L (2-4) % Baso % (Auto) 1.5 (0-2) % Neut # (Auto) 3500 (3584-8358) /uL Lymph # (Auto) 1000 L (8370-5725) /uL [place] # (Auto) 400 (0-900) /uL Eos # (Auto) 100 (0-450) /uL Baso # (Auto) 100 (0-100) /uL PT 11.4 (9.4-12.5) SECONDS INR 1.0 (0.9-1.3) APTT 29 (25.1-36.5) SECONDS Sodium 136 L (137-145) mmol/L Potassium 3.6 (3.4-5.1) mmol/L Chloride 99 (98-107) mmol/L Carbon Dioxide 28 (22-32) mmol/L BUN 31 H (7-17) mg/dL Creatinine 1.04 (0.52-1.04) mg/dL Estimated GFR 53 L (>60) mL/min BUN/Creatinine Ratio 29.8 H (6-22) Glucose 104 H (70-99) mg/dL Calcium 9.2 (8.4-10.2) mg/dL Magnesium 2.1 (1.6-2.3) mg/dL Total Bilirubin 0.5 (0.2-1.3) mg/dL AST 33 (14-36) IU/L ALT 21 (<35) IU/L Alkaline Phosphatase 77 (38-126) U/L Total Creatine Kinase 222 H (30-135) U/L Troponin I < 0.012 (0.01-0.034) ng/mL NT-Pro-B Natriuret Pep 1240 H (<450) pg/mL Total Protein 8.4 H (6.3-8.2) g/dL Albumin 4.8 (3.5-5.0) g/dL Globulin 3.6 (1.7-4.1) g/dL Albumin/Globulin Ratio 1.3 (1.0-2.8) Lipase 103 (23-300) U/L Point of Care Testing Test Results Not applicable MDM Narrative Medical decision making narrative: Patient brought in by ambulance for home. Patient has history of paroxysmal atrial fibrillation on Eliquis. Has not missed any doses. Patient states last night started feeling dizzy and near fainting when she stands up. No chest pain. Patient sees Dr. Friedman with [facility]. Last ablation 5 years ago. Loop recorder 1 year ago shows paroxysmal AFib. EKG likely atrial flutter rate 130 today. Patient in no distress. MDM After history and exam, CBC CMP PT PTT INR troponin BNP chest x-ray EKG, Cardiology consult for possible cardioversion Differential considered: Includes but not limited to STEMI non-STEMI atrial flutter atrial fibrillation Medical records reviewed: ER visit here February 11, 2024 for paroxysmal atrial fibrillation Lab Test results independently reviewed as above. Pertinent findings: WBC 5.1 hemoglobin 13.6 INR 1.0 sodium 136 potassium 3.6 BUN 31 creatinine 1.04 troponin less than 0.012 BNP 1240 Independently reviewed EKG atrial flutter rate 130 repeat EKG at 8:25 a.m. atrial flutter with variable AV block. Rate 99 Repeat EKG after cardioversion 10:09 a.m.. Sinus rhythm rate 78 Imaging studies independently reviewed: Chest x-ray no acute finding Consultations: 7:58 a.m.. Paged out to Dr. Bowens cardiology 9:07 a.m.. I spoke with Cardiology [facility] Dr. Bowens, recommends cardioversion. Reviewed with him patient history and TAVR as well. Re-evaluations: 9:10 a.m.. Reviewed with patient cardiology recommends cardioversion. She agrees. NPO since 6:00 p.m. last night. Reviewed with their for consent risks and benefits of procedural sedation as well as cardioversion. She agrees. Daughter at bedside. 10:13 a.m.. Patient is awake alert oriented x4. Clear speech. No respiratory distress. Reviewed results with patient and daughter. She will follow up with her forest fire prevention manager regarding today's visit for any medication changes. Return precautions reviewed. They desire discharge home. 11:19 a.m.. Patient remains at baseline daughter at bedside. Patient tolerated procedure and sedation very well. Return precautions reviewed. She desires discharge home. Patient in sinus rhythm on monitor. Discussion: Appropriate for discharge home. Patient has returned back to baseline after procedural sedation. Return precautions reviewed. She has a establish cardiology to follow up with. Diagnosis: Paroxysmal atrial fibrillation Critical Care Time Critical Care Time Attestation: Critical Care Time 35 minutes: Critical care time is separate from other billable procedures. This critical care time includes consultation with family and other consulting doctors, review of records, and interpretation of data from labs, EKGs, imaging, etc. Discharge Plan Departure Patient Disposition: Home Clinical Impression: Paroxysmal A-fib Instructions: DI for Cardioversion, DI for Atrial Fibrillation, DI for Moderate Sedation Activity Restrictions/Additional Instructions: I am glad you are feeling better. Please see your family doctor and forest fire prevention manager this week for re-evaluation. No driving operating machinery today. Continue home medications. Return if worse if any questions or concerns. Prescriptions: No Action MULTIVITAMIN (Multivitamin -) 1 cap PO EVERY DAY Qty: 0 Eliquis 5 mg tablet 2.5 mg PO Q12H Qty: 0 estradiol [Tasia] 0.05 mg/24 hr patch semiweekly 1 patch topical 2XW Qty: 24 3RF oxybutynin chloride 5 mg tablet extended release 24hr 5 mg PO DAILY Qty: 90 3RF levothyroxine 25 mcg capsule 37.5 mcg PO DAILY vitamin B complex no.10-FA 400 mcg tablet extended release PO polyethylene glycol 3350 [Miralax] 17 gram/dose powder 17 gram PO DAILY acetaminophen [Tylenol Arthritis Pain] 650 mg tablet extended release 650 mg PO Q12H valsartan 40 mg tablet PO estradiol [Estrace] 0.01 % (0.1 mg/gram) cream 0.5 g vaginal 2XW Qty: 42.5 3RF Rx Instructions: 0.5gm in vagina and small amount to outside twice a week ondansetron 4 mg tablet,disintegrating 4 mg PO Q8H PRN (Reason: nausea and vomiting) Qty: 14 0RF magnesium oxide 420 mg tablet 420 mg PO BEDTIME Qty: 30 0RF diclofenac sodium 1 % gel 2 g topical QID Qty: 100 0RF Rx Instructions: apply to single area of pain up to 4 times daily lidocaine 5 % adhesive patch,medicated 1 patch topical DAILY Qty: 30 0RF Rx Instructions: leave on most painful area for up to 12 hrs Referrals: Everton Maldonado MD [Primary Care Provider, Family Practice] Stand Alone Forms: Patient Portal/API
[2025-05-27 08:03] LABS: Add Manual Diff / Slide Review NO; Hematocrit 40.2 % (36-46); Hemoglobin 13.6 g/dL (12.0-16.0); Lymphocytes Absolute Auto 1000 /uL (1100-4500); Mean Corpuscular HGB Conc 33.8 % (30-36); Mean Corpuscular Hemoglobin 30.8 PG (26-34); Mean Corpuscular Volume 91.2 fL (80-100); Platelet Count 185 X10^3/uL (150-400)
[2025-05-27 08:04] LABS: INR 1.0 (0.9-1.3); Prothrombin Time 11.4 SECONDS (9.4-12.5)
[2025-05-27] MEDS: ONDANSETRON 4 MG/2 ML INJ IV (08:05)
[2025-05-27 08:06] LABS: PTT Partial Thromboplastin Tim 29 SECONDS (25.1-36.5)
[2025-05-27 08:09] LABS: Alanine Aminotransferase 21 IU/L (<35); Albumin 4.8 g/dL (3.5-5.0); Albumin Globulin Ratio 1.3 (1.0-2.8); Alkaline Phosphatase 77 U/L (38-126); Blood Urea Nitrogen 31 mg/dL (7-17); Calcium 9.2 mg/dL (8.4-10.2); Carbon Dioxide 28 mmol/L (22-32); Chloride 99 mmol/L (98-107); Creatine Kinase 222 U/L (30-135); Estimated Glomerular Filt Rate 53 mL/min (>60); Globulin 3.6 g/dL (1.7-4.1); Glucose 104 mg/dL (70-99); Lipase 103 U/L (23-300); Magnesium 2.1 mg/dL (1.6-2.3); Potassium 3.6 mmol/L (3.4-5.1); Sodium 136 mmol/L (137-145); Total Protein 8.4 g/dL (6.3-8.2)
--- NOTE | 2025-05-27 08:19 | PC.NURSE ---
Mohs procedure, healing within normal limits. No signs of infection noted. Dressing changed
[2025-05-27 08:20] LABS: Troponin I < 0.012 ng/mL (0.01-0.034)
[2025-05-27 08:22] LABS: HEMOLYSIS < 15 (0-50); NT-proBNP (BNP-Adult 18+) 1240 pg/mL (<450)
--- NOTE | 2025-05-27 10:09 | EKG_ITS ---
[place] [address] [place] [id number] Test Date: 2025-05-27 Pat Name: Ruby Bah Department: [facility] Room: Gender: Female Clinical Manager Home Care: [facility] : 1940 Requested By: Order Number: [id number] Reading MD: Emil Veliz MD Measurements Intervals [place] Rate: 78 P: 77 MD: 216 QRS: 80 QRSD: 96 T: 80 QT: 394 QTc: 449 Interpretive Statements Sinus rhythm with 1st degree AV block with premature supraventricular complexes Septal infarct , age undetermined Electronically Signed On 05-27-2025 10:14:53 PDT by Emil Veliz MD
[2025-05-27] MEDS: APIXABAN 5 MG TABLET 2.5 MG PO (10:27)
== END 2025-05-27 11:33 | disposition home or self-care (01) ==
PROVIDERS: Emergency Provider Emergency Medicine; Family Provider Family Medicine; PCP Family Medicine
DX: I48.0 Paroxysmal atrial fibrillation (principal); Z79.01 Long term (current) use of anticoagulants
CPT/HCPCS: 36415; 71045; 80053; 82550; 83690; 83735; 83880; 84484; 85025; 85610; 85730; 92960; 93005; 96374; 99285; J2405; J2704

== ENCOUNTER → 2025-06-12 08:58 | Outpatient (CLI) | payer MEDICARE, OTHER, SELFPAY ==
--- NOTE | 2025-06-12 08:59 | DI.MRI.S_ITS ---
PROCEDURE: MR LUMBAR SPINE WO CON INDICATIONS: pain TECHNIQUE: Noncontrast sagittal T1 spin echo and T2 fast echo, sagittal STIR, and T2 fast spin echo through the lumbar spine. In cases with scoliosis, additional coronal T2 fast spin echo may be performed. COMPARISON: [facility], , MR LUMBAR SPINE WO CON, 11/10/2019, 8:30. FINDINGS: Image quality: Excellent. Alignment and Curvature: There is moderate dextroscoliosis, with angulation of 28??? degrees. There is also mild L4 anterolisthesis and mild L1 retrolisthesis. Bone Marrow: Mild Modic type 1 reactive endplate changes at L4-L5. No other areas of bone marrow signal abnormality seen. Spinal Cord: Conus medullaris terminates at the L1 level. Visualized cord demonstrates normal signal and size. Paraspinous Soft Tissues: No paravertebral masses. T12-L1: Mild disc bulge as well as bilateral facet arthropathy and ligamentum flavum thickening. No significant spinal stenosis. L1-L2: There is disc bulge as well as bilateral facet arthropathy and ligamentum flavum thickening. There is mild to moderate central spinal stenosis as well as moderate bilateral lateral recess and foraminal stenosis L2-L3: There is disc bulge as well as bilateral facet arthropathy and some ligamentum flavum thickening. There is mild central spinal stenosis as well as mild bilateral lateral recess and foraminal stenosis, more on the right. L3-L4: There is disc bulge as well as bilateral facet arthropathy and ligamentum flavum thickening. There is mild to moderate central spinal stenosis as well as bilateral lateral recess and foraminal stenosis. L4-L5: There is disc bulge as well as bilateral facet arthropathy and ligamentum flavum thickening. There is severe central spinal stenosis as well as moderate bilateral lateral recess and foraminal stenosis. L5-S1: There is disc bulge as well as significant bilateral facet arthropathy and ligamentum flavum thickening. There is a probable synovial cyst on the right measuring 7 x 3 mm. There is moderate right lateral recess and foraminal stenosis as well as mild left foraminal stenosis. IMPRESSION: 1. Dextroscoliosis, mild spondylolisthesis as well as multilevel degenerative changes as above, with severe central spinal stenosis at L4-L5. This appears more prominent compared to prior study. 2. No acute focal osseous lesion or disc extrusion seen. Dictated by: Fuad Drummond M.D. on 06/14/2025 at 11:52 Approved by: Fuad Drummond M.D. on 06/14/2025 at 12:01
== END ==
LOC: MRI 08:59
PROVIDERS: Family Provider Family Medicine; PCP Family Medicine; Referring Provider Family Medicine; Visit Provider Family Medicine
DX: M51.369 Other intervertebral disc degeneration, lumbar region without mention of lumbar back pain or lower extremity pain (principal); M51.379 Other intervertebral disc degeneration, lumbosacral region without mention of lumbar back pain or lower extremity pain; M47.816 Spondylosis without myelopathy or radiculopathy, lumbar region; M47.817 Spondylosis without myelopathy or radiculopathy, lumbosacral region; M48.061 Spinal stenosis, lumbar region without neurogenic claudication; M48.07 Spinal stenosis, lumbosacral region; M54.50 Low back pain, unspecified; G89.29 Other chronic pain; M43.16 Spondylolisthesis, lumbar region; M41.9 Scoliosis, unspecified
CPT/HCPCS: 72148